=== PATIENT | female | born 1940 | race Hispanic/Latino ===

== ENCOUNTER 2017-09-05 10:33 | Inpatient (IN) | payer MEDICARE, BC ==
[2017-09-05 10:33] VITALS: BMI 31.1
[2017-09-05] MEDS ORDERED: Iohexol 240 (50 ml) PO ONE (11:03)
[2017-09-05] MEDS ORDERED: Sodium Chloride 0.9% 1,000 ML IV STA (11:03)
[2017-09-05] MEDS ORDERED: Albuterol-Ipratrop 3 mg / 0.5 (3 ml) UD IH STA (11:04)
--- NOTE | 2017-09-05 11:11 | ED PDOC ---
HPI: Abdomen Time Seen by Provider: 09/05/17 10:47 Chief Complaint (Nursing): Abdominal Pain Chief Complaint (Provider): Abd pain History Per: Patient History/Exam Limitations: no limitations Onset/Duration Of Symptoms: Days (Today morning) Outside of [place] travel?: No Additional Complaint(s): Pt. with abd pain diffuse. Started today morning. Pt. with nausea, vomit, nonbloody. No back pain, dyspnea, chest pain, fever, cough, leg pain, dysuria. Last bm yesterday. Past Medical History Reviewed: Nursing Documentation, Vital Signs Vital Signs: Last Vital Signs Temp 97.0 F L 09/05/17 10:47 Pulse 104 H 09/05/17 15:24 Resp 16 09/05/17 15:24 BP 124/71 09/05/17 15:24 Pulse Ox 96 09/05/17 15:24 - Medical History PMH: CHF, COPD, Emphysema, Fractures (Right ankle about 50 yrs. ago), HTN, Hypercholesterolemia (untreated), Hyperthyroidism, Hypothyroidism, Pneumonia Denies: HIV, Chronic Kidney Disease - Surgical History Surgical History: Endoscopy, Tonsillectomy - Family History Family History: States: Hypertension - Social History Current smoker - smoking cessation education provided: No Alcohol: None Drugs: Denies - Home Medications Home Medications: Ambulatory Orders Medication Instructions Recorded Albuterol Sulfate [Albuterol 3 ml IH TID 08/24/14 Sulfate 2.5mg/3 ml 0.083%] Albuterol Sulfate [Albuterol 1 puff IH QID PRN 08/24/14 Sulfate Hfa] Alendronate Sodium 35 mg PO SUN 08/24/14 Furosemide [Lasix] 40 mg PO PRN PRN 08/24/14 Levothyroxine Sodium 112 mcg PO ASDIR 08/24/14 Omeprazole 20 mg PO DAILY PRN 08/24/14 Potassium Chloride [K-Dur 20] 20 meq PO PRN PRN 08/24/14 Acetaminophen [Tylenol Extra 1,000 mg PO Q6H PRN 09/30/14 Strength] Alprazolam [Xanax] 0.25 mg PO DAILY PRN 09/30/14 Cholecalciferol [Vitamin D 1000 IU] 1,000 units PO DAILY 09/30/14 Levothyroxine Sodium 56 mcg PO SUN 09/30/14 Montelukast [Singulair] 10 mg PO DAILY #0 tab 10/06/14 Multimineral/Multivitamin 1 tab PO DAILY #0 tab 10/06/14 [Therapeutic-M Tab] amLODIPine [Norvasc] 10 mg PO HS #0 tab 10/06/14 - Allergies Allergies/Adverse Reactions: Allergies Allergy/AdvReac Type Severity Reaction Status Date / Time Penicillins Allergy Mild RASH Verified 09/05/17 10:47 Review of Systems ROS Statement: Except As Marked, All Systems Reviewed And Found Negative Gastrointestinal: Positive for: Nausea, Vomiting, Abdominal Pain Physical Exam - Reviewed Nursing Documentation Reviewed: Yes Vital Signs Reviewed: Yes - Physical Exam Appears: Positive for: Non-toxic, No Acute Distress Head Exam: Positive for: ATRAUMATIC, NORMAL INSPECTION, NORMOCEPHALIC Skin: Positive for: Normal Color, Warm, DRY Eye Exam: Positive for: EOMI, Normal appearance, PERRL ENT: Positive for: Normal ENT Inspection Neck: Positive for: Normal, Painless ROM Cardiovascular/Chest: Positive for: Tachycardia. Negative for: Edema Respiratory: Positive for: Wheezing (trace b/l) Gastrointestinal/Abdominal: Positive for: Soft, Tenderness (diffuse), Distended (mild) Back: Positive for: Normal Inspection. Negative for: L CVA Tenderness, R CVA Tenderness Extremity: Positive for: Normal ROM. Negative for: Tenderness, Pedal Edema Neurologic/Psych: Positive for: Alert, Oriented - Laboratory Results Result Diagrams: 09/05/17 12:20 09/05/17 12:20 Interpretation Of Abn Labs: no acute - ECG ECG Rhythm: Positive for: Sinus Tachycardia. Negative for: Normal QRS, Normal ST Segment O2 Sat by Pulse Oximetry: 95 Pulse Ox Interpretation: Normal - CT Scan/US ct Other Rad Studies (CT/US): Read By Radiologist Other Rad Interpretation: cholecystitis - Progress ED Course And Treament: 1618: Stable. AAOx3. Pain controlled. Spoke with Dr. Jurado. Will admit. Spoke with Dr. Hayward. Will consullt. Agrees with current management. Wants US. Spoke with GI. Will consult. Disposition - Clinical Impression Clinical Impression: Cholecystitis - Patient ED Disposition Is Patient to be Admitted: Yes Counseled Patient/Family Regarding: Studies Performed, Diagnosis - Disposition Disposition Time: 16:31 Condition: FAIR - Pt Status Changed To: Hospital Disposition Of: Inpatient - Admit Certification Admit to Inpatient:: After my assessment, the patient will require hospitalization for at least two midnights. This is because of the severity of symptoms shown, intensity of services needed, and/or the medical risk in this patient being treated as an outpatient. - POA Present On Arrival: None
[2017-09-05] MEDS ORDERED: Iohexol 240 (50 ml) ONE (11:39)
[2017-09-05] MEDS ORDERED: Albuterol-Ipratrop 3 mg / 0.5 (3 ml) UD ONE (11:40)
[2017-09-05 12:27] LABS: BASO # 0.1 K/uL (0.0-0.2); BASO % 0.6 % (0.0-2.0); EOS % 0.4 % (0.0-4.0); HEMATOCRIT 44.5 % (34.0-47.0); LYMPH # 0.8 K/uL (1.0-4.3); LYMPH % 7.5 % (20.0-40.0); MEAN CELL VOLUME 88.2 fl (81.0-99.0); MEAN CORPUSCULAR HEMOGLOBIN 29.9 pg (27.0-31.0); MEAN CORPUSCULAR HGB CONC 33.9 g/dL (33.0-37.0); MONO # 0.3 K/uL (0.0-0.8); MONO % 2.8 % (0.0-10.0); NEUT # 9.2 K/uL (1.8-7.0); NEUT % 88.7 % (50.0-75.0); PLATELET COUNT 242 K/uL (130-400); RED CELL DISTRIBUTION WIDTH 14.5 % (11.5-14.5); WHITE BLOOD COUNT 10.3 K/uL (4.8-10.8)
[2017-09-05 12:44] LABS: PARTIAL THROMBOPLASTIN TIME 27.9 Seconds (25.6-37.1)
[2017-09-05 12:48] LABS: ALB/GLOB RATIO 1.1 (1.0-2.1); ALKALINE PHOSPHATASE 164 U/L (38-126); ALT/SGPT 53 U/L (9-52); AST/SGOT 40 U/L (14-36); BILIRUBIN,TOTAL 0.6 mg/dl (0.2-1.3); BLOOD UREA NITROGEN 10 mg/dl (7-17); CALCIUM 8.8 mg/dL (8.4-10.2); CARBON DIOXIDE 23 mmol/L (22-30); CHLORIDE 106 mmol/L (98-107); GFR AFRICAN-AMERICAN > 60; GLUCOSE,RANDOM 151 mg/dL (65-105); LIPASE 35 U/L (23-300); POTASSIUM 3.6 MMOL/L (3.6-5.0); SODIUM 143 mmol/l (132-148); TOTAL PROTEIN 8.5 G/DL (6.3-8.2)
[2017-09-05 12:57] LABS: NEUTROPHIL 92 % (42-75); TOTAL CELLS COUNTED 100
[2017-09-05 14:20] LABS: RBC URINE 3 /hpf (0-3); URINE BACTERIA FEW (<OCC); URINE BILIRUBIN NEGATIVE (NEGATIVE); URINE BLOOD NEGATIVE (NEGATIVE); URINE COLOR YELLOW (YELLOW); URINE GLUCOSE (UA) NEG (Normal); URINE KETONE TRACE mg/dL (NEGATIVE); URINE LEUKOCYTE ESTERASE NEG Leu/uL (Negative); URINE PROTEIN NEGATIVE (NEGATIVE); URINE UROBILINOGEN 0.2-1.0 mg/dL (0.2-1.0); WBC URINE 4 /hpf (0-5)
[2017-09-05] MEDS ORDERED: Sodium Chloride 0.9% 50 ML IV ONE (14:56)
[2017-09-05] MEDS ORDERED: Iohexol 300 100 ML IJ ONE (14:56)
--- NOTE | 2017-09-05 16:11 | CT ---
PROCEDURE: CT Abdomen and Pelvis with contrast HISTORY: Abdominal pain COMPARISON: 10/31/2015 TECHNIQUE: CT scan of the abdomen and pelvis was performed after intravenous administration of contrast. Oral contrast was administered. Coronal and sagittal reformatted images were obtained. Contrast dose: 95 mL Omnipaque 300 Radiation dose: Total exam DLP = 1050.93 mGy-cm. This CT exam was performed using one or more of the following dose reduction techniques: Automated exposure control, adjustment of the mA and/or kV according to patient size, and/or use of iterative reconstruction technique. FINDINGS: LOWER THORAX: There is minimal bibasilar atelectasis. LIVER: There is mild hepatomegaly and there is diffuse fatty infiltration. No gross lesion or ductal dilatation. GALLBLADDER AND BILE DUCTS: The gallbladder is distended with mild wall edema and small gallstones. PANCREAS: The pancreas is normal in size. No gross lesion or ductal dilatation. SPLEEN: There is mild splenomegaly. No focal lesion. . ADRENALS: Both adrenal glands are normal in size without discrete nodule. KIDNEYS AND URETERS: Both kidneys are normal in size and there is homogeneous enhancement. No hydronephrosis. No solid mass. There is a 1.8 x 2.1 cm simple cyst in the lower pole of the left kidney. 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 BOWEL: The small bowel loops are normal in caliber. There is extensive left colonic diverticulosis without CT evidence for acute diverticulitis. No bowel dilatation or obstruction. APPENDIX: Normal appendix. PERITONEUM: No free fluid. No free air. LYMPH NODES: No enlarged lymph nodes. BLADDER: Unremarkable. REPRODUCTIVE: Unremarkable. BONES: No acute fracture. OTHER FINDINGS: There is a small sliding hiatal hernia. IMPRESSION: 1. Findings are concerning for acute calculus cholecystitis. Please correlate with right upper quadrant ultrasound and clinical symptoms. 2. Left colonic diverticulosis without CT evidence for acute diverticulitis. 3. Additional findings as described above.
--- NOTE | 2017-09-05 16:14 | RAD ---
PROCEDURE: Radiographs of the chest and abdomen (obstructive series) HISTORY: Abdominal pain COMPARISON: No prior. TECHNIQUE: AP radiograph of the chest, with upright and supine radiographs of the abdomen. FINDINGS: CHEST: Lungs: Clear. Cardiovascular: No radiographic findings to suggest acute or significant cardiovascular disease. Pleura: No pleural fluid. No pneumothorax. Other findings: None. ABDOMEN AND PELVIS: Bowel: Unremarkable bowel gas pattern. No evidence of mechanical obstruction. Free air: None. Bones: Severe degenerative changes right hip. Other findings: None. IMPRESSION: No acute findings related to/accounting for the clinical presentation. Additional benign and/or incidental findings described above.
[2017-09-05] MEDS ORDERED: metroNIDAZOLE 500mg/100ml NS 100 ML IV STA (16:19)
[2017-09-05] MEDS ORDERED: Ciprofloxacin 400mg/200ml D5W 400 MG/200 ML BAG IV STA (16:20)
[2017-09-05] MEDS ORDERED: cefTRIAXone (Rocephin) 1 gm Inj IV ONE (16:48)
[2017-09-05] MEDS ORDERED: cefTRIAXone IV 1 gm in Dextros 50 ML IVPB ONE ×2 (16:55→17:15)
--- NOTE | 2017-09-05 17:02 | CP.PCM.CON ---
<Neva Wolf - Last Filed: 09/05/17 17:25> History of Present Illness - History of Present Illness History of Present Illness: General Surgery consult note for Dr. Hayward Consulted for: Acute cholecystitis Patient is a 77F with 12 hours of abdominal pain. Patient states Right sided abdominal pain woke her up from sleep and was associated with nausea but denies vomiting. Pain is sharp, constant, and does not radiate. Patient denies any fevers, chills, back pain, or any other symptoms. PMH: HTN, COPD, HLD, CHF, hypothyroidism PSH: carpal tunnel release ALL: PCN Review of Systems - Review of Systems All systems: reviewed and no additional remarkable complaints except (as per HPI ) - Constitutional Constitutional: absent: Chills, Fever - Cardiovascular Cardiovascular: Dyspnea. absent: Chest Pain - Respiratory Respiratory: Cough, Dyspnea - Gastrointestinal Gastrointestinal: As Per HPI - Genitourinary Genitourinary: absent: Change in Urinary Stream, Dysuria, Hematuria - Musculoskeletal Musculoskeletal: absent: Back Pain - Neurological Neurological: absent: Numbness, Tingling Past Patient History - Past Medical History & Family History Past Medical History?: Yes - Past Social History Alcohol: None Drugs: Denies - CARDIAC Hx Congestive Heart Failure: Yes Hx Hypercholesterolemia: Yes (untreated) Hx Hypertension: Yes - PULMONARY Hx Chronic Obstructive Pulmonary Disease (COPD): Yes Hx Emphysema: Yes Hx Pneumonia: Yes - NEUROLOGICAL Hx Neurological Disorder: No - HEENT Hx HEENT Problems: No Other/Comment: Uses eyeglasses - RENAL Hx Chronic Kidney Disease: No - ENDOCRINE/METABOLIC Hx Hyperthyroidism: Yes Hx Hypothyroidism: Yes - HEMATOLOGICAL/ONCOLOGICAL Hx Human Immunodeficiency Virus (HIV): No - INTEGUMENTARY Hx Dermatological Problems: No - MUSCULOSKELETAL/RHEUMATOLOGICAL Hx Fractures: Yes (Right ankle about 50 yrs. ago) - GASTROINTESTINAL Hx Gastrointestinal Disorders: No - GENITOURINARY/GYNECOLOGICAL Hx Genitourinary Disorders: No - PSYCHIATRIC Hx Psychophysiologic Disorder: No Hx Substance Use: No - SURGICAL HISTORY Hx Tonsillectomy: Yes - ANESTHESIA Hx Anesthesia: Yes Hx Anesthesia Reactions: No Hx Malignant Hyperthermia: No Meds Allergies/Adverse Reactions: Allergies Allergy/AdvReac Type Severity Reaction Status Date / Time Penicillins Allergy Mild RASH Verified 09/05/17 10:47 - Medications Medications: Current Medications Ciprofloxacin (Cipro 400mg/200ml Dsw) 400 mg in 200 mls @ 200 mls/hr IV STAT STA PRN Reason: Protocol Stop: 09/05/17 17:19 Physical Exam - Constitutional Appears: Non-toxic, In Acute Distress - Head Exam Head Exam: ATRAUMATIC, NORMOCEPHALIC - Eye Exam Eye Exam: Normal appearance. absent: Conjunctival injection, Scleral icterus - ENT Exam ENT Exam: Mucous Membranes Dry, Normal Oropharynx - Respiratory Exam Respiratory Exam: NORMAL BREATHING PATTERN. absent: Accessory Muscle Use, Respiratory Distress - Cardiovascular Exam Cardiovascular Exam: Tachycardia, REGULAR RHYTHM - GI/Abdominal Exam GI & Abdominal Exam: Distended, Guarding (voluntary over the RUQ/RLQ), Soft, Tenderness (RUQ/RLQ) Additional comments: positive dunlap's sign, fullness in the RUQ - Extremities Exam Extremities exam: Positive for: pedal edema (trace pedal edema), pedal pulses present. Negative for: calf tenderness - Neurological Exam Neurological exam: Alert, Oriented x3 - Psychiatric Exam Psychiatric exam: Anxious, Normal Affect - Skin Skin Exam: Dry, Intact, Normal Color, Warm Results - Vital Signs Recent Vital Signs: Last Vital Signs Temp 97.0 F L 09/05/17 10:47 Pulse 104 H 09/05/17 16:49 Resp 16 09/05/17 16:49 BP 124/71 09/05/17 16:49 Pulse Ox 95 09/05/17 16:31 - Labs Result Diagrams: 09/05/17 12:20 09/05/17 12:20 Labs: Laboratory Results - last 24 hr 09/05/17 09/05/17 09/05/17 10:49 12:20 12:20 WBC 10.3 RBC 5.04 Hgb 15.1 Hct 44.5 MCV 88.2 D MCH 29.9 MCHC 33.9 RDW 14.5 Plt Count 242 MPV 8.0 Neut % (Auto) 88.7 H Lymph % (Auto) 7.5 L Motley % (Auto) 2.8 Eos % (Auto) 0.4 Baso % (Auto) 0.6 Neut # 9.2 H Lymph # 0.8 L Motley # 0.3 Eos # 0.0 Baso # 0.1 Neutrophils % (Manual) 92 H Lymphocytes % (Manual) 6 L Monocytes % (Manual) 2 Platelet Estimate Normal RBC Morphology Normal PT INR APTT Sodium 143 Potassium 3.6 Chloride 106 Carbon Dioxide 23 Anion Gap 18 BUN 10 Creatinine 0.7 Est GFR ( Amer) > 60 Est GFR (Non-Af Amer) > 60 POC Glucose (mg/dL) 140 H Random Glucose 151 H Lactic Acid Calcium 8.8 Total Bilirubin 0.6 AST 40 H ALT 53 H D Alkaline Phosphatase 164 H Total Protein 8.5 H Albumin 4.4 Globulin 4.1 H Albumin/Globulin Ratio 1.1 Lipase 35 Urine Color Urine Clarity Urine pH Ur Specific Maize Urine Protein Urine Glucose (UA) Urine Ketones Urine Blood Urine Nitrate Urine Bilirubin Urine Urobilinogen Ur Leukocyte Esterase Urine RBC (Auto) Urine Microscopic WBC Ur Squamous Epith Cells Urine Bacteria 09/05/17 09/05/17 09/05/17 12:20 12:20 13:52 WBC RBC Hgb Hct MCV MCH MCHC RDW Plt Count MPV Neut % (Auto) Lymph % (Auto) Motley % (Auto) Eos % (Auto) Baso % (Auto) Neut # Lymph # Motley # Eos # Baso # Neutrophils % (Manual) Lymphocytes % (Manual) Monocytes % (Manual) Platelet Estimate RBC Morphology PT 10.8 INR 1.0 APTT 27.9 Sodium Potassium Chloride Carbon Dioxide Anion Gap BUN Creatinine Est GFR ( Amer) Est GFR (Non-Af Amer) POC Glucose (mg/dL) Random Glucose Lactic Acid 2.1 Calcium Total Bilirubin AST ALT Alkaline Phosphatase Total Protein Albumin Globulin Albumin/Globulin Ratio Lipase Urine Color Yellow Urine Clarity Cloudy Urine pH 8.0 Ur Specific [place] 1.014 Urine Protein Negative Urine Glucose (UA) Neg Urine Ketones Trace Urine Blood Negative Urine Nitrate Negative Urine Bilirubin Negative Urine Urobilinogen 0.2-1.0 Ur Leukocyte Esterase Neg Urine RBC (Auto) 3 Urine Microscopic WBC 4 Ur Squamous Epith Cells 2 Urine Bacteria Few H - Imaging and Cardiology CT scan - abdomen Status: Image reviewed by me, Report reviewed by me Assessment & Plan - Assessment and Plan (Free Text) Assessment: 77F with right sided abdominal pain and nausea Plan: -Follow up abdominal ultrasound results -Trend CBC/CMP -Serial exams -IV antibiotics -IVF -PRN pain and nausea medication -NPO -Incentive spirometer, OOB -CT scan of the abdomen showed dilated gallbladder with gallstones and mild wall edema. Also showed infrarenal aortic aneurysm with mural thrombus. -We recommend vascular consult for abdominal aortic aneurysm -Further general surgery plans depending on results of ultrasound -Patient will need cardiac and medical clearance prior to any procedure -Will continue to follow Discussed with Dr. Mainor Wolf, PGY2 <Audi Hayward - Last Filed: 09/06/17 11:15> History of Present Illness - History of Present Illness History of Present Illness: Patient was seen and examined at the bedside. Agree with resident's note above. Meds - Medications Medications: Current Medications Albuterol/Ipratropium (Duoneb 3 Mg/0.5 Mg (3 Ml) Ud) 3 ml INH RQ6 RUBI Last Admin: 09/06/17 07:11 Dose: 3 ml Hydromorphone HCl (Dilaudid) 0.5 mg IVP Q4 PRN PRN Reason: Pain, severe (8-10) Stop: 09/07/17 17:42 Lactated Ringer's (Lactated Ringer's) 1,000 mls @ 75 mls/hr IV .[id number] RUBI Last Admin: 09/06/17 09:08 Dose: Not Given Piperacillin Sod/Tazobactam (Sod 3.375 gm/ Sodium Chloride) 100 mls @ 100 mls/ hr IVPB Q6 RUBI PRN Reason: Protocol Last Admin: 09/06/17 10:23 Dose: 100 mls/hr Potassium Chloride (Potassium Cl 10meq/50ml Sterile Water) 50 mls @ 50 mls/hr IVPB Q1 RUBI Stop: 09/06/17 12:59 Metoclopramide HCl (Reglan) 10 mg IVP Q6 PRN PRN Reason: Nausea/Vomiting Last Admin: 09/05/17 22:09 Dose: 10 mg Pantoprazole Sodium (Protonix Inj) 40 mg IVP DAILY RUBI Last Admin: 09/06/17 09:10 Dose: 40 mg Results - Vital Signs Recent Vital Signs: Last Vital Signs Temp 98.2 F 09/06/17 07:24 Pulse 89 09/06/17 07:24 Resp 20 09/06/17 07:24 BP 112/73 09/06/17 07:24 Pulse Ox 96 09/06/17 07:24 - Labs Result Diagrams: 09/06/17 05:35 09/06/17 05:35 Labs: Laboratory Results - last 24 hr 09/05/17 09/05/17 09/05/17 10:49 12:20 12:20 WBC 10.3 RBC 5.04 Hgb 15.1 Hct 44.5 MCV 88.2 D MCH 29.9 MCHC 33.9 RDW 14.5 Plt Count 242 MPV 8.0 Neut % (Auto) 88.7 H Lymph % (Auto) 7.5 L Motley % (Auto) 2.8 Eos % (Auto) 0.4 Baso % (Auto) 0.6 Neut # 9.2 H Lymph # 0.8 L Motley # 0.3 Eos # 0.0 Baso # 0.1 Neutrophils % (Manual) 92 H Lymphocytes % (Manual) 6 L Monocytes % (Manual) 2 Platelet Estimate Normal RBC Morphology Normal PT INR APTT Sodium 143 Potassium 3.6 Chloride 106 Carbon Dioxide 23 Anion Gap 18 BUN 10 Creatinine 0.7 Est GFR ( Amer) > 60 Est GFR (Non-Af Amer) > 60 POC Glucose (mg/dL) 140 H Random Glucose 151 H Lactic Acid Calcium 8.8 Total Bilirubin 0.6 AST 40 H ALT 53 H D Alkaline Phosphatase 164 H Total Protein 8.5 H Albumin 4.4 Globulin 4.1 H Albumin/Globulin Ratio 1.1 Lipase 35 Urine Color Urine Clarity Urine pH Ur Specific [place] Urine Protein Urine Glucose (UA) Urine Ketones Urine Blood Urine Nitrate Urine Bilirubin Urine Urobilinogen Ur Leukocyte Esterase Urine RBC (Auto) Urine Microscopic WBC Ur Squamous Epith Cells Urine Bacteria 09/05/17 09/05/17 09/05/17 12:20 12:20 13:52 WBC RBC Hgb Hct MCV MCH MCHC RDW Plt Count MPV Neut % (Auto) Lymph % (Auto) Motley % (Auto) Eos % (Auto) Baso % (Auto) Neut # Lymph # Motley # Eos # Baso # Neutrophils % (Manual) Lymphocytes % (Manual) Monocytes % (Manual) Platelet Estimate RBC Morphology PT 10.8 INR 1.0 APTT 27.9 Sodium Potassium Chloride Carbon Dioxide Anion Gap BUN Creatinine Est GFR ( Amer) Est GFR (Non-Af Amer) POC Glucose (mg/dL) Random Glucose Lactic Acid 2.1 Calcium Total Bilirubin AST ALT Alkaline Phosphatase Total Protein Albumin Globulin Albumin/Globulin Ratio Lipase Urine Color Yellow Urine Clarity Cloudy Urine pH 8.0 Ur Specific [place] 1.014 Urine Protein Negative Urine Glucose (UA) Neg Urine Ketones Trace Urine Blood Negative Urine Nitrate Negative Urine Bilirubin Negative Urine Urobilinogen 0.2-1.0 Ur Leukocyte Esterase Neg Urine RBC (Auto) 3 Urine Microscopic WBC 4 Ur Squamous Epith Cells 2 Urine Bacteria Few H 09/06/17 09/06/17 05:35 05:35 WBC 17.5 H D RBC 4.67 Hgb 13.7 Hct 41.4 MCV 88.5 MCH 29.4 MCHC 33.2 RDW 14.2 Plt Count 198 MPV 8.0 Neut % (Auto) 86.1 H Lymph % (Auto) 5.1 L Motley % (Auto) 8.6 Eos % (Auto) 0.0 Baso % (Auto) 0.2 Neut # 15.0 H Lymph # 0.9 L Motley # 1.5 H Eos # 0.0 Baso # 0.0 Neutrophils % (Manual) Lymphocytes % (Manual) Monocytes % (Manual) Platelet Estimate RBC Morphology PT INR APTT Sodium 138 Potassium 3.3 L Chloride 103 Carbon Dioxide 22 Anion Gap 16 BUN 10 Creatinine 0.8 Est GFR ( Amer) > 60 Est GFR (Non-Af Amer) > 60 POC Glucose (mg/dL) Random Glucose 121 H Lactic Acid Calcium 8.8 Total Bilirubin 1.2 AST 38 H ALT 46 Alkaline Phosphatase 128 H D Total Protein 7.4 Albumin 3.8 Globulin 3.5 Albumin/Globulin Ratio 1.1 Lipase Urine Color Urine Clarity Urine pH Ur Specific [place] Urine Protein Urine Glucose (UA) Urine Ketones Urine Blood Urine Nitrate Urine Bilirubin Urine Urobilinogen Ur Leukocyte Esterase Urine RBC (Auto) Urine Microscopic WBC Ur Squamous Epith Cells Urine Bacteria Assessment & Plan - Assessment and Plan (Free Text) Plan: - Keep NPO - IV fluids - pain control - Continue antibiotics - To OR for cholecystectomy
[2017-09-05] MEDS ORDERED: HYDROmorphone 0.5 mg/0.5 ml ISec IVP PRN ×2 (17:40→17:41)
--- NOTE | 2017-09-05 18:46 | US ---
HISTORY: gallstones and eval cholecystits COMPARISON: None. TECHNIQUE: Sonographic evaluation of the right upper quadrant of the abdomen. FINDINGS: LIVER: Measures 19.7 cm in length. There is diffuse increased echogenicity of the liver parenchyma. No mass. No intrahepatic bile duct dilatation. GALLBLADDER: The gallbladder is markedly distended with mild wall thickening. There are no gallstones or pericholecystic fluid. The sonographic Armijo sign is positive is as documented by the technologist. COMMON BILE DUCT: Measures 4.4 mm. No stones. No dilatation. PANCREAS: Unremarkable as visualized. No mass. No ductal dilatation. RIGHT KIDNEY: Measures 12.5 cm in length. Normal echogenicity. No calculus, mass, or hydronephrosis. AORTA: No aneurysmal dilatation. IVC: Unremarkable. OTHER FINDINGS: None . IMPRESSION: Distended gallbladder with mild wall thickening without sonographic evidence for pericholecystic fluid or gallstones. The sonographic Armijo's sign is positive as documented by the technologist. Findings are most compatible with cholecystitis. Clinical correlation and follow-up is advised.
--- NOTE | 2017-09-05 20:51 | CP.PCM.CON ---
History of Present Illness - History of Present Illness History of Present Illness: Surgery: Dr. Zheng Reason for consult: thrombus in AAA HPI: Patient is a 77 y/o female w/ multiple comorbidities who presents complaining of right sided abdominal pain x 1 day. Patient reports associated n/ v. Denies fever reports chills. Patient currently being evaluated for possible OR for gallbladder etiology. 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 PMH: HTN, COPD, HLD, CHF, hypothyroidism PSH: carpal tunnel release ALL: PCN Review of Systems - Review of Systems All systems: reviewed and no additional remarkable complaints except Review of Systems: unless stated in HPI Past Patient History - Past Medical History & Family History Past Medical History?: Yes - Past Social History Alcohol: None Drugs: Denies - CARDIAC Hx Congestive Heart Failure: Yes Hx Hypercholesterolemia: Yes (untreated) Hx Hypertension: Yes - PULMONARY Hx Chronic Obstructive Pulmonary Disease (COPD): Yes Hx Emphysema: Yes Hx Pneumonia: Yes - NEUROLOGICAL Hx Neurological Disorder: No - HEENT Hx HEENT Problems: No Other/Comment: Uses eyeglasses - RENAL Hx Chronic Kidney Disease: No - ENDOCRINE/METABOLIC Hx Hyperthyroidism: Yes Hx Hypothyroidism: Yes - HEMATOLOGICAL/ONCOLOGICAL Hx Human Immunodeficiency Virus (HIV): No - INTEGUMENTARY Hx Dermatological Problems: No - MUSCULOSKELETAL/RHEUMATOLOGICAL Hx Fractures: Yes (Right ankle about 50 yrs. ago) - GASTROINTESTINAL Hx Gastrointestinal Disorders: No - GENITOURINARY/GYNECOLOGICAL Hx Genitourinary Disorders: No - PSYCHIATRIC Hx Psychophysiologic Disorder: No Hx Substance Use: No - SURGICAL HISTORY Hx Tonsillectomy: Yes - ANESTHESIA Hx Anesthesia: Yes Hx Anesthesia Reactions: No Hx Malignant Hyperthermia: No Meds Allergies/Adverse Reactions: Allergies Allergy/AdvReac Type Severity Reaction Status Date / Time Penicillins Allergy Mild RASH Verified 09/05/17 10:47 - Medications Medications: Current Medications Albuterol/Ipratropium (Duoneb 3 Mg/0.5 Mg (3 Ml) Ud) 3 ml INH RQ6 RUBI Hydromorphone HCl (Dilaudid) 0.5 mg IVP Q4 PRN PRN Reason: Pain, severe (8-10) Stop: 09/07/17 17:42 Hydromorphone HCl (Dilaudid) 0.5 mg IVP Q3 PRN PRN Reason: Pain, moderate (4-7) Lactated Ringer's (Lactated Ringer's) 1,000 mls @ 75 mls/hr IV .[id number] RUBI Piperacillin Sod/Tazobactam (Sod 3.375 gm/ Sodium Chloride) 100 mls @ 100 mls/ hr IVPB Q6 RUBI PRN Reason: Protocol Metoclopramide HCl (Reglan) 10 mg IVP Q6 PRN PRN Reason: Nausea/Vomiting Pantoprazole Sodium (Protonix Inj) 40 mg IVP DAILY RUBI Physical Exam - Constitutional Appears: Non-toxic, No Acute Distress - Head Exam Head Exam: ATRAUMATIC, NORMOCEPHALIC - Eye Exam Eye Exam: EOMI - ENT Exam ENT Exam: Mucous Membranes Moist - Respiratory Exam Respiratory Exam: Clear to Auscultation Bilateral, NORMAL BREATHING PATTERN - Cardiovascular Exam Cardiovascular Exam: RRR, +S1, +S2 - GI/Abdominal Exam GI & Abdominal Exam: Hernia, Rebound, Soft, Tenderness (+ dunlap's ). absent: Distended, Firm, Guarding, Pulsatile Mass - Extremities Exam Extremities exam: Positive for: normal capillary refill. Negative for: calf tenderness - Neurological Exam Neurological exam: Alert, Oriented x3 - Psychiatric Exam Psychiatric exam: Normal Affect, Normal Mood - Skin Skin Exam: Normal Color, Warm Results - Vital Signs Recent Vital Signs: Last Vital Signs Temp 97.7 F 09/05/17 18:52 Pulse 105 H 09/05/17 18:52 Resp 20 09/05/17 18:52 BP 122/74 09/05/17 18:52 Pulse Ox 93 L 09/05/17 18:52 - Labs Result Diagrams: 09/05/17 12:20 09/05/17 12:20 Labs: Laboratory Results - last 24 hr 09/05/17 09/05/17 09/05/17 10:49 12:20 12:20 WBC 10.3 RBC 5.04 Hgb 15.1 Hct 44.5 MCV 88.2 D MCH 29.9 MCHC 33.9 RDW 14.5 Plt Count 242 MPV 8.0 Neut % (Auto) 88.7 H Lymph % (Auto) 7.5 L [place] % (Auto) 2.8 Eos % (Auto) 0.4 Baso % (Auto) 0.6 Neut # 9.2 H Lymph # 0.8 L [place] # 0.3 Eos # 0.0 Baso # 0.1 Neutrophils % (Manual) 92 H Lymphocytes % (Manual) 6 L Monocytes % (Manual) 2 Platelet Estimate Normal RBC Morphology Normal PT INR APTT Sodium 143 Potassium 3.6 Chloride 106 Carbon Dioxide 23 Anion Gap 18 BUN 10 Creatinine 0.7 Est GFR ( Amer) > 60 Est GFR (Non-Af Amer) > 60 POC Glucose (mg/dL) 140 H Random Glucose 151 H Lactic Acid Calcium 8.8 Total Bilirubin 0.6 AST 40 H ALT 53 H D Alkaline Phosphatase 164 H Total Protein 8.5 H Albumin 4.4 Globulin 4.1 H Albumin/Globulin Ratio 1.1 Lipase 35 Urine Color Urine Clarity Urine pH Ur Specific [place] Urine Protein Urine Glucose (UA) Urine Ketones Urine Blood Urine Nitrate Urine Bilirubin Urine Urobilinogen Ur Leukocyte Esterase Urine RBC (Auto) Urine Microscopic WBC Ur Squamous Epith Cells Urine Bacteria 09/05/17 09/05/17 09/05/17 12:20 12:20 13:52 WBC RBC Hgb Hct MCV MCH MCHC RDW Plt Count MPV Neut % (Auto) Lymph % (Auto) [place] % (Auto) Eos % (Auto) Baso % (Auto) Neut # Lymph # [place] # Eos # Baso # Neutrophils % (Manual) Lymphocytes % (Manual) Monocytes % (Manual) Platelet Estimate RBC Morphology PT 10.8 INR 1.0 APTT 27.9 Sodium Potassium Chloride Carbon Dioxide Anion Gap BUN Creatinine Est GFR ( Amer) Est GFR (Non-Af Amer) POC Glucose (mg/dL) Random Glucose Lactic Acid 2.1 Calcium Total Bilirubin AST ALT Alkaline Phosphatase Total Protein Albumin Globulin Albumin/Globulin Ratio Lipase Urine Color Yellow Urine Clarity Cloudy Urine pH 8.0 Ur Specific [place] 1.014 Urine Protein Negative Urine Glucose (UA) Neg Urine Ketones Trace Urine Blood Negative Urine Nitrate Negative Urine Bilirubin Negative Urine Urobilinogen 0.2-1.0 Ur Leukocyte Esterase Neg Urine RBC (Auto) 3 Urine Microscopic WBC 4 Ur Squamous Epith Cells 2 Urine Bacteria Few H Assessment & Plan - Assessment and Plan (Free Text) Assessment: 77 y/o female w/ 3.5 cm AAA w/ intramural thrombus Plan: -patient cleared for Laparoscopic surgery from vascular standpoint -non indication for vascular intervention for AAA or intramural thrombus at this time -patient should f/u as outpatient for AAA surveillance -discussed in length with Dr. Norm Silveira PGY3
[2017-09-05] MEDS: Albuterol-Ipratrop 3 mg / 0.5 (3 ml) UD INH SCH (21:05)
[2017-09-05] MEDS: Lactated Ringer's 1,000 ML IV SCH (21:56)
[2017-09-05] MEDS: Piperacillin/Tazobact 3.375 GM in Sodium Chloride 0.9% 100 ML IVPB SCH (21:59)
[2017-09-06] MEDS: Albuterol-Ipratrop 3 mg / 0.5 (3 ml) UD INH SCH ×4 (01:17→19:32)
[2017-09-06] MEDS: Piperacillin/Tazobact 3.375 GM in Sodium Chloride 0.9% 100 ML IVPB SCH ×4 (04:05→17:55)
[2017-09-06 06:31] LABS: BASO % 0.2 % (0.0-2.0); HEMATOCRIT 41.4 % (34.0-47.0); LYMPH # 0.9 K/uL (1.0-4.3); LYMPH % 5.1 % (20.0-40.0); MEAN CELL VOLUME 88.5 fl (81.0-99.0); MEAN CORPUSCULAR HEMOGLOBIN 29.4 pg (27.0-31.0); MEAN CORPUSCULAR HGB CONC 33.2 g/dL (33.0-37.0); MONO # 1.5 K/uL (0.0-0.8); MONO % 8.6 % (0.0-10.0); NEUT % 86.1 % (50.0-75.0); RED CELL DISTRIBUTION WIDTH 14.2 % (11.5-14.5); WHITE BLOOD COUNT 17.5 K/uL (4.8-10.8)
[2017-09-06 06:32] LABS: ALB/GLOB RATIO 1.1 (1.0-2.1); ALKALINE PHOSPHATASE 128 U/L (38-126); ALT/SGPT 46 U/L (9-52); AST/SGOT 38 U/L (14-36); BILIRUBIN,TOTAL 1.2 mg/dl (0.2-1.3); BLOOD UREA NITROGEN 10 mg/dl (7-17); CALCIUM 8.8 mg/dL (8.4-10.2); CARBON DIOXIDE 22 mmol/L (22-30); CHLORIDE 103 mmol/L (98-107); GFR AFRICAN-AMERICAN > 60; GLUCOSE,RANDOM 121 mg/dL (65-105); POTASSIUM 3.3 MMOL/L (3.6-5.0); SODIUM 138 mmol/l (132-148); TOTAL PROTEIN 7.4 G/DL (6.3-8.2)
--- NOTE | 2017-09-06 07:37 | CARD ---
APPROVED REPORT EKG Measurement Heart [id number] <Conclusion> Sinus tachycardia Otherwise normal ECG
--- NOTE | 2017-09-06 08:37 | CP.PCM.HP ---
History of Present Illness - History of Present Illness History of Present Illness: 77 YR OLD FEMALE WITH ABDOMINAL PAINS,NAUSEA AND VOMITING X 1 DAY SCAN OF ABDOMEN REMARKABLE FOR AAA AND GALLBLADDER DISEASE Present on Admission - Present on Admission Any Indicators Present on Admission: No History of DVT/PE: No History of Uncontrolled Diabetes: No Urinary Catheter: No Decubitus Ulcer Present: No History Surgical Site Infection Following: None Past Patient History - Past Medical History & Family History Past Medical History?: Yes - Past Social History Smoking Status: Former Smoker - CARDIAC Hx Cardiac Disorders: Yes Hx Congestive Heart Failure: Yes Hx Hypercholesterolemia: Yes (untreated) Hx Hypertension: Yes - PULMONARY Hx Respiratory Disorders: Yes Hx Chronic Obstructive Pulmonary Disease (COPD): Yes Hx Emphysema: Yes Hx Pneumonia: Yes - NEUROLOGICAL Hx Neurological Disorder: No - HEENT Hx HEENT Problems: Yes Other/Comment: Uses eyeglasses - RENAL Hx Chronic Kidney Disease: No - ENDOCRINE/METABOLIC Hx Endocrine Disorders: Yes Hx Hypothyroidism: Yes - HEMATOLOGICAL/ONCOLOGICAL Hx Blood Disorders: No Hx AIDS: No Hx Hepatitis C: No Hx Human Immunodeficiency Virus (HIV): No - INTEGUMENTARY Hx Dermatological Problems: No - MUSCULOSKELETAL/RHEUMATOLOGICAL Hx Musculoskeletal Disorders: Yes Hx Falls: No Hx Fractures: Yes (R ankle fx) - GASTROINTESTINAL Hx Gastrointestinal Disorders: No - GENITOURINARY/GYNECOLOGICAL Hx Genitourinary Disorders: No - PSYCHIATRIC Hx Psychophysiologic Disorder: Yes Hx Anxiety: Yes (denies taking xanax home med) Hx Substance Use: No - SURGICAL HISTORY Hx Surgeries: Yes Hx Musculoskeletal Surgery: Yes (R ankle surgery) Hx Tonsillectomy: Yes - ANESTHESIA Hx Anesthesia: Yes Hx Anesthesia Reactions: No Hx Malignant Hyperthermia: No Meds Allergies/Adverse Reactions: Allergies Allergy/AdvReac Type Severity Reaction Status Date / Time Penicillins Allergy Mild RASH Verified 09/05/17 10:47 Physical Exam - Constitutional Appears: In Acute Distress - Head Exam Head Exam: ATRAUMATIC, NORMAL INSPECTION, NORMOCEPHALIC - Eye Exam Eye Exam: EOMI, Normal appearance, PERRL Pupil Exam: NORMAL ACCOMODATION, PERRL - ENT Exam ENT Exam: Mucous Membranes Moist, Normal Exam - Neck Exam Neck exam: Positive for: Normal Inspection - Respiratory Exam Respiratory Exam: Clear to Auscultation Bilateral, Rales, NORMAL BREATHING PATTERN - Cardiovascular Exam Cardiovascular Exam: REGULAR RHYTHM - GI/Abdominal Exam GI & Abdominal Exam: Normal Bowel Sounds, Soft, Tenderness Additional comments: RUQ TENDERNESS - Rectal Exam Rectal Exam: NORMAL INSPECTION - Extremities Exam Extremities exam: Positive for: normal inspection - Back Exam Back exam: NORMAL INSPECTION - Neurological Exam Neurological exam: Alert, CN II-XII Intact, Normal Gait, Oriented x3, Reflexes Normal - Psychiatric Exam Psychiatric exam: Normal Affect, Normal Mood - Skin Skin Exam: Dry, Intact, Normal Color, Warm Results - Vital Signs Recent Vital Signs: Last Vital Signs Temp 98.2 F 09/06/17 07:24 Pulse 89 09/06/17 07:24 Resp 20 09/06/17 07:24 BP 112/73 09/06/17 07:24 Pulse Ox 96 09/06/17 07:24 - Labs Result Diagrams: 09/06/17 05:35 09/06/17 05:35 Labs: Laboratory Results - last 24 hr 09/05/17 09/05/17 09/05/17 10:49 12:20 12:20 WBC 10.3 RBC 5.04 Hgb 15.1 Hct 44.5 MCV 88.2 D MCH 29.9 MCHC 33.9 RDW 14.5 Plt Count 242 MPV 8.0 Neut % (Auto) 88.7 H Lymph % (Auto) 7.5 L [place] % (Auto) 2.8 Eos % (Auto) 0.4 Baso % (Auto) 0.6 Neut # 9.2 H Lymph # 0.8 L [place] # 0.3 Eos # 0.0 Baso # 0.1 Neutrophils % (Manual) 92 H Lymphocytes % (Manual) 6 L Monocytes % (Manual) 2 Platelet Estimate Normal RBC Morphology Normal PT INR APTT Sodium 143 Potassium 3.6 Chloride 106 Carbon Dioxide 23 Anion Gap 18 BUN 10 Creatinine 0.7 Est GFR ( Amer) > 60 Est GFR (Non-Af Amer) > 60 POC Glucose (mg/dL) 140 H Random Glucose 151 H Lactic Acid Calcium 8.8 Total Bilirubin 0.6 AST 40 H ALT 53 H D Alkaline Phosphatase 164 H Total Protein 8.5 H Albumin 4.4 Globulin 4.1 H Albumin/Globulin Ratio 1.1 Lipase 35 Urine Color Urine Clarity Urine pH Ur Specific [place] Urine Protein Urine Glucose (UA) Urine Ketones Urine Blood Urine Nitrate Urine Bilirubin Urine Urobilinogen Ur Leukocyte Esterase Urine RBC (Auto) Urine Microscopic WBC Ur Squamous Epith Cells Urine Bacteria 09/05/17 09/05/17 09/05/17 12:20 12:20 13:52 WBC RBC Hgb Hct MCV MCH MCHC RDW Plt Count MPV Neut % (Auto) Lymph % (Auto) [place] % (Auto) Eos % (Auto) Baso % (Auto) Neut # Lymph # [place] # Eos # Baso # Neutrophils % (Manual) Lymphocytes % (Manual) Monocytes % (Manual) Platelet Estimate RBC Morphology PT 10.8 INR 1.0 APTT 27.9 Sodium Potassium Chloride Carbon Dioxide Anion Gap BUN Creatinine Est GFR ( Amer) Est GFR (Non-Af Amer) POC Glucose (mg/dL) Random Glucose Lactic Acid 2.1 Calcium Total Bilirubin AST ALT Alkaline Phosphatase Total Protein Albumin Globulin Albumin/Globulin Ratio Lipase Urine Color Yellow Urine Clarity Cloudy Urine pH 8.0 Ur Specific [place] 1.014 Urine Protein Negative Urine Glucose (UA) Neg Urine Ketones Trace Urine Blood Negative Urine Nitrate Negative Urine Bilirubin Negative Urine Urobilinogen 0.2-1.0 Ur Leukocyte Esterase Neg Urine RBC (Auto) 3 Urine Microscopic WBC 4 Ur Squamous Epith Cells 2 Urine Bacteria Few H 09/06/17 09/06/17 05:35 05:35 WBC 17.5 H D RBC 4.67 Hgb 13.7 Hct 41.4 MCV 88.5 MCH 29.4 MCHC 33.2 RDW 14.2 Plt Count 198 MPV 8.0 Neut % (Auto) 86.1 H Lymph % (Auto) 5.1 L [place] % (Auto) 8.6 Eos % (Auto) 0.0 Baso % (Auto) 0.2 Neut # 15.0 H Lymph # 0.9 L [place] # 1.5 H Eos # 0.0 Baso # 0.0 Neutrophils % (Manual) Lymphocytes % (Manual) Monocytes % (Manual) Platelet Estimate RBC Morphology PT INR APTT Sodium 138 Potassium 3.3 L Chloride 103 Carbon Dioxide 22 Anion Gap 16 BUN 10 Creatinine 0.8 Est GFR ( Amer) > 60 Est GFR (Non-Af Amer) > 60 POC Glucose (mg/dL) Random Glucose 121 H Lactic Acid Calcium 8.8 Total Bilirubin 1.2 AST 38 H ALT 46 Alkaline Phosphatase 128 H D Total Protein 7.4 Albumin 3.8 Globulin 3.5 Albumin/Globulin Ratio 1.1 Lipase Urine Color Urine Clarity Urine pH Ur Specific [place] Urine Protein Urine Glucose (UA) Urine Ketones Urine Blood Urine Nitrate Urine Bilirubin Urine Urobilinogen Ur Leukocyte Esterase Urine RBC (Auto) Urine Microscopic WBC Ur Squamous Epith Cells Urine Bacteria Assessment & Plan - Assessment and Plan (Free Text) Assessment: ACUTE CHOLECYSTITIS ABDOMINAL AORTIC ANEURYSM HTN HX OF CHF--DIASTOLIC DYSFUNCTION--STABLE SINUS TACHYCARDIA DUE TO CHOLECYSTITIS HX OF THYROID DZ COPD Plan: CLEARED FOR CHOLECYSTECTOMY BY VASCULAR SURGERY AWAIT CARDIAC CLEARANCE MEDICALLY CLEARED FOR SURGERY ONCE CLEARED BY CARDIOLOGY
[2017-09-06] MEDS: Lactated Ringer's 1,000 ML IV SCH ×3 (09:08→20:25)
--- NOTE | 2017-09-06 10:29 | CP.PCM.CON ---
History of Present Illness - History of Present Illness History of Present Illness: THE PATIENT IS A 77 YEAR OLD FEMALE WHO WAS ADMITTED WITH RUQ ABDOMINAL PAIN AND WAS FOUND TO HAVE ACUTE CHOLECYSTITIS AND CARDIOLOGY WAS ASKED TO CLEAR BEFORE SURGERY. SHE ALSO HAS A HISTORY OF HYPERTENSION, HYPERLIPIDEMIA, COPD AND HYPOTHYROIDISM. SHE DOES NOT HAVE A HISTORY OF CAD OR CHEST PAIN. Past Patient History - Past Medical History & Family History Past Medical History?: Yes - Past Social History Smoking Status: Former Smoker - CARDIAC Hx Cardiac Disorders: Yes Hx Congestive Heart Failure: Yes Hx Hypercholesterolemia: Yes (untreated) Hx Hypertension: Yes - PULMONARY Hx Respiratory Disorders: Yes Hx Chronic Obstructive Pulmonary Disease (COPD): Yes Hx Emphysema: Yes Hx Pneumonia: Yes - NEUROLOGICAL Hx Neurological Disorder: No - HEENT Hx HEENT Problems: Yes Other/Comment: Uses eyeglasses - RENAL Hx Chronic Kidney Disease: No - ENDOCRINE/METABOLIC Hx Endocrine Disorders: Yes Hx Hypothyroidism: Yes - HEMATOLOGICAL/ONCOLOGICAL Hx Blood Disorders: No Hx AIDS: No Hx Hepatitis C: No Hx Human Immunodeficiency Virus (HIV): No - INTEGUMENTARY Hx Dermatological Problems: No - MUSCULOSKELETAL/RHEUMATOLOGICAL Hx Musculoskeletal Disorders: Yes Hx Falls: No Hx Fractures: Yes (R ankle fx) - GASTROINTESTINAL Hx Gastrointestinal Disorders: No - GENITOURINARY/GYNECOLOGICAL Hx Genitourinary Disorders: No - PSYCHIATRIC Hx Psychophysiologic Disorder: Yes Hx Anxiety: Yes (denies taking xanax home med) Hx Substance Use: No - SURGICAL HISTORY Hx Surgeries: Yes Hx Musculoskeletal Surgery: Yes (R ankle surgery) Hx Tonsillectomy: Yes - ANESTHESIA Hx Anesthesia: Yes Hx Anesthesia Reactions: No Hx Malignant Hyperthermia: No Meds Allergies/Adverse Reactions: Allergies Allergy/AdvReac Type Severity Reaction Status Date / Time Penicillins Allergy Mild RASH Verified 09/05/17 10:47 - Medications Medications: Current Medications Albuterol/Ipratropium (Duoneb 3 Mg/0.5 Mg (3 Ml) Ud) 3 ml INH RQ6 RUBI Last Admin: 09/06/17 07:11 Dose: 3 ml Hydromorphone HCl (Dilaudid) 0.5 mg IVP Q4 PRN PRN Reason: Pain, severe (8-10) Stop: 09/07/17 17:42 Hydromorphone HCl (Dilaudid) 0.5 mg IVP Q3 PRN PRN Reason: Pain, moderate (4-7) Last Admin: 09/05/17 22:09 Dose: 0.5 mg Lactated Ringer's (Lactated Ringer's) 1,000 mls @ 75 mls/hr IV .[id number] RUBI Last Admin: 09/06/17 09:08 Dose: Not Given Piperacillin Sod/Tazobactam (Sod 3.375 gm/ Sodium Chloride) 100 mls @ 100 mls/ hr IVPB Q6 RUBI PRN Reason: Protocol Last Admin: 09/06/17 10:23 Dose: 100 mls/hr Potassium Chloride (Potassium Cl 10meq/50ml Sterile Water) 50 mls @ 50 mls/hr IVPB Q1 RUBI Stop: 09/06/17 12:59 Metoclopramide HCl (Reglan) 10 mg IVP Q6 PRN PRN Reason: Nausea/Vomiting Last Admin: 09/05/17 22:09 Dose: 10 mg Pantoprazole Sodium (Protonix Inj) 40 mg IVP DAILY [facility] Last Admin: 09/06/17 09:10 Dose: 40 mg Physical Exam - Respiratory Exam Respiratory Exam: Clear to Auscultation Bilateral - Cardiovascular Exam Cardiovascular Exam: REGULAR RHYTHM, +S1, +S2 - GI/Abdominal Exam GI & Abdominal Exam: Hypoactive Bowel Sounds, Tenderness Additional comments: RUQ PAIN - Extremities Exam Extremities exam: Positive for: normal inspection - Additional Findings Additional findings: EKG ST, R [address] WITH ACUTE CHOLECYSTITIS AND 3.5 ABDOMINAL AORTA ANEURYSM AT 3.5 CMS SEEN BY VASCULAR AND CLEAR FOR SURGERY ECHOCARDIOGRAM 2013 WITH NORMAL LV SYSTOLIC CONTRACTION Results - Vital Signs Recent Vital Signs: Last Vital Signs Temp 98.2 F 09/06/17 07:24 Pulse 89 09/06/17 07:24 Resp 20 09/06/17 07:24 BP 112/73 09/06/17 07:24 Pulse Ox 96 09/06/17 07:24 - Labs Result Diagrams: 09/06/17 05:35 09/06/17 05:35 Labs: Laboratory Results - last 24 hr 09/05/17 09/05/17 09/05/17 10:49 12:20 12:20 WBC 10.3 RBC 5.04 Hgb 15.1 Hct 44.5 MCV 88.2 D MCH 29.9 MCHC 33.9 RDW 14.5 Plt Count 242 MPV 8.0 Neut % (Auto) 88.7 H Lymph % (Auto) 7.5 L [place] % (Auto) 2.8 Eos % (Auto) 0.4 Baso % (Auto) 0.6 Neut # 9.2 H Lymph # 0.8 L [place] # 0.3 Eos # 0.0 Baso # 0.1 Neutrophils % (Manual) 92 H Lymphocytes % (Manual) 6 L Monocytes % (Manual) 2 Platelet Estimate Normal RBC Morphology Normal PT INR APTT Sodium 143 Potassium 3.6 Chloride 106 Carbon Dioxide 23 Anion Gap 18 BUN 10 Creatinine 0.7 Est GFR ( Amer) > 60 Est GFR (Non-Af Amer) > 60 POC Glucose (mg/dL) 140 H Random Glucose 151 H Lactic Acid Calcium 8.8 Total Bilirubin 0.6 AST 40 H ALT 53 H D Alkaline Phosphatase 164 H Total Protein 8.5 H Albumin 4.4 Globulin 4.1 H Albumin/Globulin Ratio 1.1 Lipase 35 Urine Color Urine Clarity Urine pH Ur Specific [place] Urine Protein Urine Glucose (UA) Urine Ketones Urine Blood Urine Nitrate Urine Bilirubin Urine Urobilinogen Ur Leukocyte Esterase Urine RBC (Auto) Urine Microscopic WBC Ur Squamous Epith Cells Urine Bacteria 09/05/17 09/05/17 09/05/17 12:20 12:20 13:52 WBC RBC Hgb Hct MCV MCH MCHC RDW Plt Count MPV Neut % (Auto) Lymph % (Auto) [place] % (Auto) Eos % (Auto) Baso % (Auto) Neut # Lymph # [place] # Eos # Baso # Neutrophils % (Manual) Lymphocytes % (Manual) Monocytes % (Manual) Platelet Estimate RBC Morphology PT 10.8 INR 1.0 APTT 27.9 Sodium Potassium Chloride Carbon Dioxide Anion Gap BUN Creatinine Est GFR ( Amer) Est GFR (Non-Af Amer) POC Glucose (mg/dL) Random Glucose Lactic Acid 2.1 Calcium Total Bilirubin AST ALT Alkaline Phosphatase Total Protein Albumin Globulin Albumin/Globulin Ratio Lipase Urine Color Yellow Urine Clarity Cloudy Urine pH 8.0 Ur Specific [place] 1.014 Urine Protein Negative Urine Glucose (UA) Neg Urine Ketones Trace Urine Blood Negative Urine Nitrate Negative Urine Bilirubin Negative Urine Urobilinogen 0.2-1.0 Ur Leukocyte Esterase Neg Urine RBC (Auto) 3 Urine Microscopic WBC 4 Ur Squamous Epith Cells 2 Urine Bacteria Few H 09/06/17 09/06/17 05:35 05:35 WBC 17.5 H D RBC 4.67 Hgb 13.7 Hct 41.4 MCV 88.5 MCH 29.4 MCHC 33.2 RDW 14.2 Plt Count 198 MPV 8.0 Neut % (Auto) 86.1 H Lymph % (Auto) 5.1 L [place] % (Auto) 8.6 Eos % (Auto) 0.0 Baso % (Auto) 0.2 Neut # 15.0 H Lymph # 0.9 L [place] # 1.5 H Eos # 0.0 Baso # 0.0 Neutrophils % (Manual) Lymphocytes % (Manual) Monocytes % (Manual) Platelet Estimate RBC Morphology PT INR APTT Sodium 138 Potassium 3.3 L Ch[place] 103 Carbon Dioxide 22 Anion Gap 16 BUN 10 Creatinine 0.8 Est GFR ( Amer) > 60 Est GFR (Non-Af Amer) > 60 POC Glucose (mg/dL) Random Glucose 121 H Lactic Acid Calcium 8.8 Total Bilirubin 1.2 AST 38 H ALT 46 Alkaline Phosphatase 128 H D Total Protein 7.4 Albumin 3.8 Globulin 3.5 Albumin/Globulin Ratio 1.1 Lipase Urine Color Urine Clarity Urine pH Ur Specific [place] Urine Protein Urine Glucose (UA) Urine Ketones Urine Blood Urine Nitrate Urine Bilirubin Urine Urobilinogen Ur Leukocyte Esterase Urine RBC (Auto) Urine Microscopic WBC Ur Squamous Epith Cells Urine Bacteria Assessment & Plan - Assessment and Plan (Free Text) Assessment: ACUTE CHOLEYSTITIS HYPERTENSION HYPERLIPIDEMIA COPD HYPOTHYROIDISM 3.5 CM ABDOMINAL AORTIC ANEURYSM Plan: THE PATIENT IS CLEARED FOR A CHOLEYSTECTOMY FROM THE CARDIAC VIEWPOINT
--- NOTE | 2017-09-06 11:16 | PQF GENQUE ---
Dr. Jurado, Further clarification of HIistory of CHF Diastolic Dysfunction-Stable; i.e. hx. of CHF not a chronic condition or Chronic CHF? OR: Other explanation of clinical finding Cardiology consult draft ACUTE CHOLECYSTITIS ; ASKED TO CLEAR BEFORE SURGERY; Hx.:HTN HYPERLIPIDEMIA, COPD AND HYPOTHYROIDISM. SHE DOES NOT HAVE A Hx. OF CAD OR CHEST PAIN Hx. CHF: Yes Assessment: Acute Cholecystitis, HTN, Hyperlipedemia, COPD, Hypothyroidism, 3.5 CM AAA This form is a permanent part of the medical record Clarification of your documentation is requested to better reflect the severity of illness and intensity of treatment of your patient. Indicators present [] Specify: [] [] Specify: [] [] Specify: [] [] Specify: [] Location in the medical record that reflects the above clinical findings: [] Treatment Provided: [] PHYSICIAN'S RESPONSE Based on your medical judgment of the clinical indicators outlined above please clarify the following: [] Practitioner response [] If unable to determine, please check the box, sign and date. Present On Admission (POA) Indicator: [] Present at the time of admission [] Not present at the time of admission [] Clinically Undetermined In responding to this query, please exercise your independent professional judgment. The fact that a question is asked does not imply that any particular answer is desired or expected. Thank you for your clarification on this documentation. If you have any questions please call. * Thank you, Aranza Kaur RN ext. #[phone]: Chely Garrett RN MTDD
[2017-09-06] MEDS: Potassium CL 10 MEQ/50 ML 50 ML IVPB SCH ×3 (11:17→15:00)
[2017-09-06] MEDS ORDERED: Bupivacaine 0.5% Inj(30mL) ONE (11:28)
--- NOTE | 2017-09-06 11:32 | PQF GENQUE ---
Dr. Jurado, Please specify type of COPD:i.e. Exacerbation of COPD >Stable Other COPD (please specify) Clinically unable to determine Unknown ER MD; Respiratory: Positive for: Wheezing (trace b/l) Albuterol IH stat trmt. in the ER->q 6 hrs. H and P: Respiratory Exam: Clear to Auscultation Bilateral, Rales, NORMAL BREATHING PATTERN Current dx. includes: COPD Respirations: 20->16->16->18-.20 This form is a permanent part of the medical record Clarification of your documentation is requested to better reflect the severity of illness and intensity of treatment of your patient. Indicators present [] Specify: [] [] Specify: [] [] Specify: [] [] Specify: [] Location in the medical record that reflects the above clinical findings: [] Treatment Provided: [] PHYSICIAN'S RESPONSE Based on your medical judgment of the clinical indicators outlined above please clarify the following: [] Practitioner response [] If unable to determine, please check the box, sign and date. Present On Admission (POA) Indicator: [] Present at the time of admission [] Not present at the time of admission [] Clinically Undetermined In responding to this query, please exercise your independent professional judgment. The fact that a question is asked does not imply that any particular answer is desired or expected. Thank you for your clarification on this documentation. If you have any questions please call. * Thank you, Aranza Kaur RN ext. #[phone]: Chely Garrett RN [email or web address]
[2017-09-06] MEDS ORDERED: Lactated Ringer's 1,000 ML IV ONE ×5 (12:10→12:30)
[2017-09-06] MEDS ORDERED: Succinylcholine 200 mg/10 ml Inj IV ONE (12:15)
[2017-09-06] MEDS ORDERED: Rocuronium 10 mg/ml (5 ml) ONE (12:15)
[2017-09-06] MEDS ORDERED: Midazolam 2 MG/2 ML VIAL ONE (12:15)
[2017-09-06] MEDS ORDERED: ePHEDrine 50 mg/ml Inj ONE (12:15)
[2017-09-06] MEDS ORDERED: Propofol 10 mg/ml Inj (20 ML) ONE (12:15)
[2017-09-06] MEDS ORDERED: Phenylephrine 10 mg/ml Inj ONE (12:15)
--- NOTE | 2017-09-06 13:12 | CON ---
DATE: 09/06/2017 REFERRING PHYSICIAN: Dr. Jurado. REASON FOR CONSULTATION: Abdominal pain. HISTORY OF PRESENT ILLNESS: This is a pleasant 77-year-old female with a history of CHF, hypercholesterolemia, hypertension, COPD, who comes in with abdominal pain and discomfort for the past 1 day. Never had the same before. Had no fevers or chills. Some nausea. No vomiting. Currently, still having pain, but improved. Lying in bed comfortably, in no apparent distress. PAST MEDICAL HISTORY: As above. PAST SURGICAL HISTORY: As above. MEDICATIONS: Reviewed. REVIEW OF SYSTEMS: All other systems have been reviewed and negative apart from the HPI. PHYSICAL EXAMINATION GENERAL: This is a pleasant, elderly-appearing female, lying in the bed comfortably, in no apparent distress. VITAL SIGNS: Reviewed in the hospital, grossly unremarkable. HEENT: Head is normocephalic and atraumatic. Eyes: Pupils are equal, round and reactive to light bilaterally. No conjunctival pallor or icterus. NECK: Supple. Normal range of motion. No lymphadenopathy appreciated. HEART: S1 and S2. Regular rate and rhythm. No murmurs appreciated. LUNGS: Coarse breath sounds bilaterally. ABDOMEN: Soft and nontender. Some discomfort in the right upper quadrant. No rebound. No guarding. EXTREMITIES: Pulses present bilaterally. SKIN: Warm, dry, and intact. NEUROLOGIC: A and O x3. LABORATORY DATA: Labs are reviewed. CBC 17.5, hemoglobin 13.7. LFTs: AST 38, ALT 46, alk phos 128. Bilirubin is normal. Abdominal ultrasound shows diffuse gallbladder wall thickening without evidence of gallstones, likely cholecystitis. ASSESSMENT AND PLAN: This is a 77-year-old female with abdominal pain and discomfort. There is cholecystitis. Antibiotics for now, n.p.o., pain control. Surgery consult appreciated. Thank you for the consult. Jose L Pleitez MD/ PhD cc: Conner Jurado MD.
[2017-09-06] MEDS ORDERED: Bupivacaine 0.5% 50 ML IJ ONE ×2 (13:26)
[2017-09-06] MEDS ORDERED: Neostigmine Methylsulfate 2 MG/2 ML ML IV ONE (13:39)
[2017-09-06] MEDS ORDERED: Esmolol 100 mg/10ml Inj IV ONE (13:49)
--- NOTE | 2017-09-06 14:11 | PCM.SURG1 ---
Surgeon's Initial Post Op Note - Surgeon's Notes Surgeon: Dr. Hayward Enterer: Dr. Ovalle PGY3, Dr. Uriarte PGY2 Type of Anesthesia: General Endo, Local Pre-Operative Diagnosis: acute cholecystitis Operative Findings: gangrenous gallbladder Post-Operative Diagnosis: acute gangrenous cholecystitis Operation Performed: laparoscopic cholecystectomy Specimen/Specimens Removed: gallbladder Estimated Blood Loss: EBL {In ML}: 75 Blood Products Given: N/A Drains Used: No Drains Post-Op Condition: Good Date of Surgery/Procedure: 09/06/17 Time of Surgery/Procedure: 14:11
[2017-09-06] MEDS ORDERED: levoFLOXacin 750 mg in D5W 150 ML BAG IVPB SCH (17:30)
[2017-09-06] MEDS ORDERED: metroNIDAZOLE 500mg/100ml NS 1,000 MG in Premixed IV 1 EA IVPB SCH (17:30)
[2017-09-06] MEDS ORDERED: levoFLOXacin 750 mg in D5W 750 MG/150 ML BAG IVPB SCH (18:30)
--- NOTE | 2017-09-06 20:21 | OP ---
PROCEDURE DATE: PREOPERATIVE DIAGNOSIS: Acute cholecystitis. POSTOPERATIVE DIAGNOSIS: Gangrenous acute cholecystitis. PROCEDURE: Laparoscopic cholecystectomy. SURGEON: Audi Hayward MD STAGE ELECTRICIAN HELPER: Yamile. SECOND PROTECTIVE SIGNAL REPAIRER: Chapito. TYPE OF ANESTHESIA: General with endotracheal intubation. IV FLUIDS: Crystalloids. ESTIMATED BLOOD LOSS: 25 mL. INTRAOPERATIVE FINDINGS: Gangrenous cholecystitis. SPECIMEN: Gallbladder. BRIEF HISTORY: Mrs. Steve is a very pleasant 77-year-old female who came to the hospital complaining of right upper quadrant abdominal, and upon further investigation it was found to have acute cholecystitis. All the risks and benefits of the procedure were explained to the patient and with the patient having a full understanding of all the risks and benefits involved, informed consent was obtained and patient was taken to the operating room for above-stated procedure. DESCRIPTION OF PROCEDURE: Patient was brought into the operating room and placed supine on the operating table. Bilateral Flowtron boots were applied to the patient's lower extremities. After successful induction of the anesthesia and successful endotracheal intubation by the anesthesia team, patient's abdomen was prepped with ChloraPrep stick and draped in the standard surgical fashion. Prior to the beginning of our procedure, a time-out was called in the room and everyone in the room were in agreement. Using Veress needle, patient's abdomen was entered at the umbilicus and pneumoperitoneum was achieved with good opening pressures. Once this was accomplished, using 11-blade scalpel knife approximately 1 mm incision was made in the umbilicus in a longitudinal fashion and subsequent to that, an 11 mm trocar was introduced into the patient's abdomen. At that point in time, a 5 mm 0-degree scope was introduced into the patient's abdomen and abdomen was inspected. We immediately were able to visualize the gallbladder that appeared to be necrotic. Then, attention was turned to the subxiphoid area. Using an 11 blade scalpel knife, 5 mm incision was made in a transverse fashion in the subxiphoid area and subsequent to that, another 5 mm trocar was introduced into the patient's abdomen. Then, attention was turned to the right side of the patient's abdomen. Using an 11 blade scalpel knife, two 5 mm incisions were made in a transverse fashion on the right side of the patient's abdomen and subsequent to that, another two 5 mm trocars were introduced into the patient's abdomen. At that point in time, using 2 graspers, the gallbladder was grasped by the fundus and the infundibulum, and using [place] dissector and the suction and irrigation device, the cystic duct and cystic artery were dissected out and a critical view was achieved. At that point in time, cystic duct was clipped with two clips proximal, one distal, and transected with laparoscopic scissors. Same thing was done for the cystic artery. It was clipped with two clips proximal, one distal and transected with laparoscopic scissors. Upon further dissection, we encountered posterior branch of the cystic artery that was dissected out with [place] dissector and clipped with two clips proximal and one distal and transected with laparoscopic scissors. At that point in time, gallbladder was dissected off the gallbladder fossa using special electrical cautery and once the gallbladder was completely freed up from the gallbladder fossa, EndoCatch bag was introduced into the patient's abdomen. The gallbladder was placed inside of the bag and the bag was closed. At that point in time, gallbladder fossa was inspected for hemostasis. Hemostasis was achieved with special electrical cautery. Patient's gallbladder fossa and abdominal cavity were copiously irrigated with sterile saline and the fluid was suctioned out. At that point in time, an 11 mm trocar together with the EndoCatch bag and gallbladder were removed from patient's abdomen and passed off to the [facility] as a specimen. Fascial layer at the umbilical port site was closed with two interrupted 0-Vicryl sutures on UR-5 needle and subsequent to that, patient's abdomen was fully desufflated. The rest of the trocars were removed from patient's abdomen and the skin was closed with 4-0 Monocryl suture in a running subcuticular fashion. At the end of the procedure, incision sites were infiltrated with Marcaine anesthetic. Patient's abdomen was washed and dried and Dermabond was applied to the incisions. Patient was successfully extubated by the anesthesia team, [facility] and taken to the recovery room in a stable condition. At the end of the procedure, all instrument counts, needles, and sponges were correct. Audi Hayward MD
[2017-09-06] MEDS: Ciprofloxacin 400mg/200ml D5W 400 MG/200 ML BAG IVPB SCH (21:36)
[2017-09-06] MEDS: Levothyroxine 112 MCG TAB PO SCH (21:37)
[2017-09-06] MEDS ORDERED: metroNIDAZOLE 500mg/100ml NS 100 ML IVPB SCH (22:00)
[2017-09-07] MEDS: Albuterol-Ipratrop 3 mg / 0.5 (3 ml) UD INH SCH ×4 (01:06→19:27)
[2017-09-07 06:02] LABS: BASO % 0.2 % (0.0-2.0); EOS % 0.1 % (0.0-4.0); HEMATOCRIT 37.8 % (34.0-47.0); LYMPH % 6.5 % (20.0-40.0); MEAN CELL VOLUME 88.8 fl (81.0-99.0); MEAN CORPUSCULAR HEMOGLOBIN 29.1 pg (27.0-31.0); MEAN CORPUSCULAR HGB CONC 32.8 g/dL (33.0-37.0); MEAN PLATELET VOLUME 7.8 fl (7.2-11.7); MONO # 1.4 K/uL (0.0-0.8); MONO % 8.8 % (0.0-10.0); NEUT # 13.1 K/uL (1.8-7.0); NEUT % 84.4 % (50.0-75.0); NRBC % 0.1 % (0.0-0.0); RED CELL DISTRIBUTION WIDTH 14.4 % (11.5-14.5); WHITE BLOOD COUNT 15.5 K/uL (4.8-10.8)
[2017-09-07 06:16] LABS: BLOOD UREA NITROGEN 12 mg/dl (7-17); CALCIUM 8.4 mg/dL (8.4-10.2); CARBON DIOXIDE 24 mmol/L (22-30); CHLORIDE 105 mmol/L (98-107); GFR AFRICAN-AMERICAN > 60; GLUCOSE,RANDOM 113 mg/dL (65-105); POTASSIUM 3.4 MMOL/L (3.6-5.0); SODIUM 139 mmol/l (132-148)
[2017-09-07] MEDS ORDERED: Potassium Chloride 20 mEq ER Tab PO ONE (07:36)
--- NOTE | 2017-09-07 08:06 | CP.PCM.PN ---
<Corbin Uriarte - Last Filed: 09/07/17 08:01> Subjective - Date & Time of Evaluation Date of Evaluation: 09/07/17 Time of Evaluation: 07:00 - Subjective Subjective: Patient seen and examined this morning at bedside. Reports right upper quadrant pain. Patient states she felt nauseous this morning. No acute events over night. Denies chest pain/SOB. Objective - Vital Signs/Intake and Output Vital Signs (last 24 hours): Temp Pulse Resp BP Pulse Ox 97.5 F L 125 H 18 131/80 90 L 09/07/17 07:27 09/07/17 07:27 09/07/17 07:27 09/07/17 07:27 09/07/17 07:27 - Medications Medications: Current Medications Albuterol/Ipratropium (Duoneb 3 Mg/0.5 Mg (3 Ml) Ud) 3 ml INH RQ6 [facility] Last Admin: 09/07/17 07:22 Dose: 3 ml Alprazolam (Xanax) 0.25 mg PO DAILY PRN PRN Reason: Anxiety Stop: 09/13/17 16:19 Amlodipine Besylate (Norvasc) 10 mg PO DAILY [facility] Atorvastatin Calcium (Lipitor) 10 mg PO HS [facility] Last Admin: 09/06/17 21:36 Dose: 10 mg Enoxaparin Sodium (Lovenox) 40 mg SC DAILY [facility] PRN Reason: Protocol Hydromorphone HCl (Dilaudid) 0.5 mg IVP Q4 PRN PRN Reason: Pain, severe (8-10) Stop: 09/07/17 17:42 Last Admin: 09/06/17 21:29 Dose: 0.5 mg Lactated Ringer's (Lactated Ringer's) 1,000 mls @ 75 mls/hr IV .[id number] [facility] Last Admin: 09/06/17 20:25 Dose: Not Given Ciprofloxacin (Cipro 400mg/200ml Dsw) 400 mg in 200 mls @ 240 mls/hr IVPB Q12 [facility] Last Admin: 09/06/17 21:36 Dose: 240 mls/hr Levothyroxine Sodium (Synthroid) 56 mcg PO SUN [facility] Levothyroxine Sodium (Synthroid) 112 mcg PO MOTUWETHFRSA [facility] Last Admin: 09/06/17 21:37 Dose: 112 mcg Metoclopramide HCl (Reglan) 10 mg IVP Q6 PRN PRN Reason: Nausea/Vomiting Last Admin: 09/05/17 22:09 Dose: 10 mg Metronidazole (Flagyl) 500 mg PO Q8 [facility] Last Admin: 09/07/17 01:21 Dose: 500 mg Montelukast Sodium (Singulair) 10 mg PO HS [facility] Last Admin: 09/06/17 21:37 Dose: 10 mg Ondansetron HCl (Zofran Inj) 4 mg IVP Q6 PRN PRN Reason: Nausea/Vomiting Pantoprazole Sodium (Protonix Inj) 40 mg IVP DAILY [facility] Last Admin: 09/06/17 09:10 Dose: 40 mg - Labs Labs: 09/07/17 05:00 09/07/17 05:00 PT 10.8 Seconds (9.8-13.1) 09/05/17 12:20 INR 1.0 (0.9-1.2) 09/05/17 12:20 APTT 27.9 Seconds (25.6-37.1) 09/05/17 12:20 - Constitutional Appears: No Acute Distress - Head Exam Head Exam: NORMOCEPHALIC - Eye Exam Eye Exam: Normal appearance - ENT Exam ENT Exam: Mucous Membranes Moist - Respiratory Exam Respiratory Exam: absent: Accessory Muscle Use - Cardiovascular Exam Cardiovascular Exam: +S1, +S2 - GI/Abdominal Exam GI & Abdominal Exam: Soft, Tenderness. absent: Firm, Guarding, Rigid - Neurological Exam Neurological Exam: Alert, Awake, Oriented x3 - Psychiatric Exam Psychiatric exam: Normal Mood - Skin Skin Exam: Intact, Normal Color, Warm Assessment and Plan - Assessment and Plan (Free Text) Assessment: 77F w/ acute cholecystitis s/p laparoscopic cholecystecomy POD1 -Regular diet -Abx -Anti-emetics/Analgesics -Hold anti-coagulation -Encourage incentive spirometer use -OOB to chair -Further recs per Dr. Mainor Uriarte PGY2 <Audi Hayward - Last Filed: 09/07/17 13:34> Subjective - Date & Time of Evaluation Time of Evaluation: 10:30 - Subjective Subjective: Patient was seen and examined at the bedside. Agree with resident's note above. Objective - Vital Signs/Intake and Output Vital Signs (last 24 hours): Temp Pulse Resp BP Pulse Ox 97.5 F L 115 H 18 131/80 90 L 09/07/17 07:27 09/07/17 08:56 09/07/17 07:27 09/07/17 08:56 09/07/17 07:27 - Medications Medications: Current Medications Albuterol/Ipratropium (Duoneb 3 Mg/0.5 Mg (3 Ml) Ud) 3 ml INH RQ6 [facility] Last Admin: 09/07/17 13:32 Dose: 3 ml Alprazolam (Xanax) 0.25 mg PO DAILY PRN PRN Reason: Anxiety Stop: 09/13/17 16:19 Amlodipine Besylate (Norvasc) 10 mg PO DAILY [facility] Last Admin: 09/07/17 08:56 Dose: 10 mg Atorvastatin Calcium (Lipitor) 10 mg PO HS [facility] Last Admin: 09/06/17 21:36 Dose: 10 mg Enoxaparin Sodium (Lovenox) 40 mg SC DAILY [facility] PRN Reason: Protocol Last Admin: 09/07/17 08:59 Dose: 40 mg Hydromorphone HCl (Dilaudid) 0.5 mg IVP Q4 PRN PRN Reason: Pain, severe (8-10) Stop: 09/07/17 17:42 Last Admin: 09/06/17 21:29 Dose: 0.5 mg Piperacillin Sod/Tazobactam (Sod 3.375 gm/ Sodium Chloride) 100 mls @ 100 mls/ hr IVPB Q8 [facility] PRN Reason: Protocol Last Admin: 09/07/17 12:29 Dose: 100 mls/hr Levothyroxine Sodium (Synthroid) 56 mcg PO SUN [facility] Levothyroxine Sodium (Synthroid) 112 mcg PO MOTUWETHFRSA [facility] Last Admin: 09/06/17 21:37 Dose: 112 mcg Metoclopramide HCl (Reglan) 10 mg IVP Q6 PRN PRN Reason: Nausea/Vomiting Last Admin: 09/05/17 22:09 Dose: 10 mg Metronidazole (Flagyl) 500 mg PO Q8 [facility] Last Admin: 09/07/17 08:56 Dose: 500 mg Montelukast Sodium (Singulair) 10 mg PO HS [facility] Last Admin: 09/06/17 21:37 Dose: 10 mg Ondansetron HCl (Zofran Inj) 4 mg IVP Q6 PRN PRN Reason: Nausea/Vomiting Pantoprazole Sodium (Protonix Inj) 40 mg IVP DAILY [facility] Last Admin: 09/07/17 08:59 Dose: 40 mg - Labs Labs: 09/07/17 05:00 09/07/17 05:00 PT 10.8 Seconds (9.8-13.1) 09/05/17 12:20 INR 1.0 (0.9-1.2) 09/05/17 12:20 APTT 27.9 Seconds (25.6-37.1) 09/05/17 12:20
[2017-09-07] MEDS: Enoxaparin 40 mg Syringe SC SCH (08:59)
[2017-09-07] MEDS ORDERED: levoFLOXacin 750 mg in D5W 150 ML BAG IVPB SCH (09:00)
[2017-09-07] MEDS: Ciprofloxacin 400mg/200ml D5W 400 MG/200 ML BAG IVPB SCH ×2 (09:00→22:17)
--- NOTE | 2017-09-07 09:22 | CP.PCM.PN ---
Subjective - Date & Time of Evaluation Date of Evaluation: 09/07/17 Time of Evaluation: 09:00 - Subjective Subjective: NO CHEST PAIN OR SOB JUST PAIN AT SURGICAL SITE Objective - Vital Signs/Intake and Output Vital Signs (last 24 hours): Temp Pulse Resp BP Pulse Ox 97.5 F L 115 H 18 131/80 90 L 09/07/17 07:27 09/07/17 08:56 09/07/17 07:27 09/07/17 08:56 09/07/17 07:27 - Medications Medications: Current Medications Albuterol/Ipratropium (Duoneb 3 Mg/0.5 Mg (3 Ml) Ud) 3 ml INH RQ6 [facility] Last Admin: 09/07/17 07:22 Dose: 3 ml Alprazolam (Xanax) 0.25 mg PO DAILY PRN PRN Reason: Anxiety Stop: 09/13/17 16:19 Amlodipine Besylate (Norvasc) 10 mg PO DAILY [facility] Last Admin: 09/07/17 08:56 Dose: 10 mg Atorvastatin Calcium (Lipitor) 10 mg PO HS [facility] Last Admin: 09/06/17 21:36 Dose: 10 mg Enoxaparin Sodium (Lovenox) 40 mg SC DAILY [facility] PRN Reason: Protocol Last Admin: 09/07/17 08:59 Dose: 40 mg Hydromorphone HCl (Dilaudid) 0.5 mg IVP Q4 PRN PRN Reason: Pain, severe (8-10) Stop: 09/07/17 17:42 Last Admin: 09/06/17 21:29 Dose: 0.5 mg Lactated Ringer's (Lactated Ringer's) 1,000 mls @ 75 mls/hr IV .[id number] [facility] Last Admin: 09/06/17 20:25 Dose: Not Given Ciprofloxacin (Cipro 400mg/200ml Dsw) 400 mg in 200 mls @ 240 mls/hr IVPB Q12 [facility] Last Admin: 09/07/17 09:00 Dose: 240 mls/hr Levothyroxine Sodium (Synthroid) 56 mcg PO SUN [facility] Levothyroxine Sodium (Synthroid) 112 mcg PO MOTUWETHFRSA [facility] Last Admin: 09/06/17 21:37 Dose: 112 mcg Metoclopramide HCl (Reglan) 10 mg IVP Q6 PRN PRN Reason: Nausea/Vomiting Last Admin: 09/05/17 22:09 Dose: 10 mg Metronidazole (Flagyl) 500 mg PO Q8 [facility] Last Admin: 09/07/17 08:56 Dose: 500 mg Montelukast Sodium (Singulair) 10 mg PO HS [facility] Last Admin: 09/06/17 21:37 Dose: 10 mg Ondansetron HCl (Zofran Inj) 4 mg IVP Q6 PRN PRN Reason: Nausea/Vomiting Pantoprazole Sodium (Protonix Inj) 40 mg IVP DAILY [facility] Last Admin: 09/07/17 08:59 Dose: 40 mg - Labs Labs: 09/07/17 05:00 09/07/17 05:00 PT 10.8 Seconds (9.8-13.1) 09/05/17 12:20 INR 1.0 (0.9-1.2) 09/05/17 12:20 APTT 27.9 Seconds (25.6-37.1) 09/05/17 12:20 - Respiratory Exam Respiratory Exam: Clear to Ausculation Bilateral - Cardiovascular Exam Cardiovascular Exam: REGULAR RHYTHM, +S1, +S2 - Extremities Exam Extremities Exam: Normal Inspection - Additional Findings Additional findings: WBC 15.5 Assessment and Plan - Assessment and Plan (Free Text) Assessment: CHOLECYSTITIS WITH LAP CHOLY HYPERTENSION HYPERLIPIDEMIA Plan: CONTINUE ANTIBIOTICS, ATORVASTATIN AND AMLODIPINE
[2017-09-07] MEDS: Piperacillin/Tazobact 3.375 GM in Sodium Chloride 0.9% 100 ML IVPB SCH ×2 (12:29→17:37)
--- NOTE | 2017-09-07 13:09 | CP.PCM.PN ---
Subjective - Date & Time of Evaluation Date of Evaluation: 09/07/17 Time of Evaluation: 13:00 - Subjective Subjective: doing well Objective - Vital Signs/Intake and Output Vital Signs (last 24 hours): Temp Pulse Resp BP Pulse Ox 97.5 F L 115 H 18 131/80 90 L 09/07/17 07:27 09/07/17 08:56 09/07/17 07:27 09/07/17 08:56 09/07/17 07:27 - Medications Medications: Current Medications Albuterol/Ipratropium (Duoneb 3 Mg/0.5 Mg (3 Ml) Ud) 3 ml INH RQ6 [facility] Last Admin: 09/07/17 07:22 Dose: 3 ml Alprazolam (Xanax) 0.25 mg PO DAILY PRN PRN Reason: Anxiety Stop: 09/13/17 16:19 Amlodipine Besylate (Norvasc) 10 mg PO DAILY [facility] Last Admin: 09/07/17 08:56 Dose: 10 mg Atorvastatin Calcium (Lipitor) 10 mg PO HS [facility] Last Admin: 09/06/17 21:36 Dose: 10 mg Enoxaparin Sodium (Lovenox) 40 mg SC DAILY [facility] PRN Reason: Protocol Last Admin: 09/07/17 08:59 Dose: 40 mg Hydromorphone HCl (Dilaudid) 0.5 mg IVP Q4 PRN PRN Reason: Pain, severe (8-10) Stop: 09/07/17 17:42 Last Admin: 09/06/17 21:29 Dose: 0.5 mg Piperacillin Sod/Tazobactam (Sod 3.375 gm/ Sodium Chloride) 100 mls @ 100 mls/ hr IVPB Q8 [facility] PRN Reason: Protocol Last Admin: 09/07/17 12:29 Dose: 100 mls/hr Levothyroxine Sodium (Synthroid) 56 mcg PO SUN [facility] Levothyroxine Sodium (Synthroid) 112 mcg PO MOTUWETHFRSA [facility] Last Admin: 09/06/17 21:37 Dose: 112 mcg Metoclopramide HCl (Reglan) 10 mg IVP Q6 PRN PRN Reason: Nausea/Vomiting Last Admin: 09/05/17 22:09 Dose: 10 mg Metronidazole (Flagyl) 500 mg PO Q8 [facility] Last Admin: 09/07/17 08:56 Dose: 500 mg Montelukast Sodium (Singulair) 10 mg PO HS [facility] Last Admin: 09/06/17 21:37 Dose: 10 mg Ondansetron HCl (Zofran Inj) 4 mg IVP Q6 PRN PRN Reason: Nausea/Vomiting Pantoprazole Sodium (Protonix Inj) 40 mg IVP DAILY [facility] Last Admin: 09/07/17 08:59 Dose: 40 mg - Labs Labs: 09/07/17 05:00 09/07/17 05:00 PT 10.8 Seconds (9.8-13.1) 09/05/17 12:20 INR 1.0 (0.9-1.2) 09/05/17 12:20 APTT 27.9 Seconds (25.6-37.1) 09/05/17 12:20 - Neck Exam Neck Exam: Normal Inspection - Cardiovascular Exam Cardiovascular Exam: REGULAR RHYTHM - GI/Abdominal Exam GI & Abdominal Exam: Soft, Tenderness, Normal Bowel Sounds Assessment and Plan - Assessment and Plan (Free Text) Assessment: 77 yo female with cholecystitis doing well dc planning when able
--- NOTE | 2017-09-07 14:07 | CP.PCM.PN ---
Subjective - Date & Time of Evaluation Date of Evaluation: 09/07/17 Time of Evaluation: 14:08 - Subjective Subjective: ABDOMINAL PAIN RESOLVING NO NAUSEA/VOMITING MILD SOB ON EXERTION Objective - Vital Signs/Intake and Output Vital Signs (last 24 hours): Temp Pulse Resp BP Pulse Ox 97.5 F L 115 H 18 131/80 90 L 09/07/17 07:27 09/07/17 08:56 09/07/17 07:27 09/07/17 08:56 09/07/17 07:27 - Medications Medications: Current Medications Albuterol/Ipratropium (Duoneb 3 Mg/0.5 Mg (3 Ml) Ud) 3 ml INH RQ6 [facility] Last Admin: 09/07/17 13:32 Dose: 3 ml Alprazolam (Xanax) 0.25 mg PO DAILY PRN PRN Reason: Anxiety Stop: 09/13/17 16:19 Amlodipine Besylate (Norvasc) 10 mg PO DAILY [facility] Last Admin: 09/07/17 08:56 Dose: 10 mg Atorvastatin Calcium (Lipitor) 10 mg PO HS [facility] Last Admin: 09/06/17 21:36 Dose: 10 mg Enoxaparin Sodium (Lovenox) 40 mg SC DAILY [facility] PRN Reason: Protocol Last Admin: 09/07/17 08:59 Dose: 40 mg Hydromorphone HCl (Dilaudid) 0.5 mg IVP Q4 PRN PRN Reason: Pain, severe (8-10) Stop: 09/07/17 17:42 Last Admin: 09/06/17 21:29 Dose: 0.5 mg Piperacillin Sod/Tazobactam (Sod 3.375 gm/ Sodium Chloride) 100 mls @ 100 mls/ hr IVPB Q8 [facility] PRN Reason: Protocol Last Admin: 09/07/17 12:29 Dose: 100 mls/hr Levothyroxine Sodium (Synthroid) 56 mcg PO SUN [facility] Levothyroxine Sodium (Synthroid) 112 mcg PO MOTUWETHFRSA [facility] Last Admin: 09/06/17 21:37 Dose: 112 mcg Metoclopramide HCl (Reglan) 10 mg IVP Q6 PRN PRN Reason: Nausea/Vomiting Last Admin: 09/05/17 22:09 Dose: 10 mg Metronidazole (Flagyl) 500 mg PO Q8 [facility] Last Admin: 09/07/17 08:56 Dose: 500 mg Montelukast Sodium (Singulair) 10 mg PO HS [facility] Last Admin: 09/06/17 21:37 Dose: 10 mg Ondansetron HCl (Zofran Inj) 4 mg IVP Q6 PRN PRN Reason: Nausea/Vomiting Pantoprazole Sodium (Protonix Inj) 40 mg IVP DAILY [facility] Last Admin: 09/07/17 08:59 Dose: 40 mg - Labs Labs: 09/07/17 05:00 09/07/17 05:00 PT 10.8 Seconds (9.8-13.1) 09/05/17 12:20 INR 1.0 (0.9-1.2) 09/05/17 12:20 APTT 27.9 Seconds (25.6-37.1) 09/05/17 12:20 - Constitutional Appears: No Acute Distress - Head Exam Head Exam: ATRAUMATIC, NORMAL INSPECTION, NORMOCEPHALIC - Eye Exam Eye Exam: EOMI, Normal appearance, PERRL Pupil Exam: NORMAL ACCOMODATION, PERRL - ENT Exam ENT Exam: Mucous Membranes Moist, Normal Exam - Neck Exam Neck Exam: Full ROM, Normal Inspection. absent: Lymphadenopathy - Respiratory Exam Respiratory Exam: Prolonged Expiratory Phase, Rales, Wheezes, NORMAL BREATHING PATTERN - Cardiovascular Exam Cardiovascular Exam: REGULAR RHYTHM, +S1, +S2. absent: Murmur - GI/Abdominal Exam GI & Abdominal Exam: Soft, Normal Bowel Sounds. absent: Tenderness - Rectal Exam Rectal Exam: NORMAL INSPECTION - Extremities Exam Extremities Exam: Full ROM, Normal Capillary Refill, Normal Inspection. absent : Joint Swelling, Pedal Edema - Back Exam Back Exam: NORMAL INSPECTION - Neurological Exam Neurological Exam: Alert, Awake, CN II-XII Intact, Normal Gait, Oriented x3 - Psychiatric Exam Psychiatric exam: Normal Affect, Normal Mood - Skin Skin Exam: Dry, Intact, Normal Color, Warm Assessment and Plan - Assessment and Plan (Free Text) Assessment: S/P CHOLECYSTECTOMY LEUKOCYTOSIS COPD CHRONIC CHF HYPOTHYROIDISM HYPOKALEMIA Plan: CONTINUE PRESENT RX K+ SUPPLEMENTS MONITOR WBC CONTINUE IV ANTIBIOTICS
[2017-09-07] MEDS: Levothyroxine 112 MCG TAB PO SCH (17:37)
[2017-09-07] MEDS ORDERED: Ciprofloxacin 400mg/200ml D5W 400 MG/200 ML BAG IVPB SCH (21:00)
[2017-09-08] MEDS: Albuterol-Ipratrop 3 mg / 0.5 (3 ml) UD INH SCH ×4 (01:04→19:00)
[2017-09-08] MEDS ORDERED: Oxycodone/Acetaminophen 5/325 mg Tab PO PRN (04:41)
[2017-09-08 07:24] LABS: BASO % 0.2 % (0.0-2.0); EOS # 0.1 K/uL (0.0-0.7); EOS % 0.5 % (0.0-4.0); HEMATOCRIT 36.2 % (34.0-47.0); LYMPH # 1.2 K/uL (1.0-4.3); MEAN CELL VOLUME 88.3 fl (81.0-99.0); MEAN CORPUSCULAR HEMOGLOBIN 29.5 pg (27.0-31.0); MEAN CORPUSCULAR HGB CONC 33.4 g/dL (33.0-37.0); MEAN PLATELET VOLUME 8.3 fl (7.2-11.7); MONO % 8.4 % (0.0-10.0); NEUT % 79.9 % (50.0-75.0); RED CELL DISTRIBUTION WIDTH 14.4 % (11.5-14.5); WHITE BLOOD COUNT 11.3 K/uL (4.8-10.8)
[2017-09-08 07:49] LABS: ALB/GLOB RATIO 0.9 (1.0-2.1); ALKALINE PHOSPHATASE 99 U/L (38-126); ALT/SGPT 53 U/L (9-52); AST/SGOT 35 U/L (14-36); BILIRUBIN,TOTAL 0.7 mg/dl (0.2-1.3); BLOOD UREA NITROGEN 12 mg/dl (7-17); CALCIUM 8.9 mg/dL (8.4-10.2); CARBON DIOXIDE 26 mmol/L (22-30); CHLORIDE 106 mmol/L (98-107); GFR AFRICAN-AMERICAN > 60; GLUCOSE,RANDOM 110 mg/dL (65-105); POTASSIUM 3.3 MMOL/L (3.6-5.0); SODIUM 140 mmol/l (132-148); TOTAL PROTEIN 6.5 G/DL (6.3-8.2)
--- NOTE | 2017-09-08 09:05 | CP.PCM.PN ---
<Neva Wolf - Last Filed: 09/08/17 09:03> Subjective - Date & Time of Evaluation Date of Evaluation: 09/08/17 Time of Evaluation: 07:30 - Subjective Subjective: Patient seen and examined this AM. ANALIAEO. States pain is improving, denies nausea , vomiting, had 2 liquid bowel movements yesterday and tolerated Heart healthy diet. Objective - Vital Signs/Intake and Output Vital Signs (last 24 hours): Temp Pulse Resp BP Pulse Ox 98 F 88 20 132/67 93 L 09/08/17 08:55 09/08/17 08:55 09/08/17 08:55 09/08/17 08:55 09/08/17 08:55 - Medications Medications: Current Medications Albuterol/Ipratropium (Duoneb 3 Mg/0.5 Mg (3 Ml) Ud) 3 ml INH RQ6 [facility] Last Admin: 09/08/17 07:17 Dose: 3 ml Alprazolam (Xanax) 0.25 mg PO DAILY PRN PRN Reason: Anxiety Stop: 09/13/17 16:19 Amlodipine Besylate (Norvasc) 10 mg PO DAILY [facility] Last Admin: 09/07/17 08:56 Dose: 10 mg Atorvastatin Calcium (Lipitor) 10 mg PO HS [facility] Last Admin: 09/07/17 22:18 Dose: 10 mg Enoxaparin Sodium (Lovenox) 40 mg SC DAILY [facility] PRN Reason: Protocol Last Admin: 09/07/17 08:59 Dose: 40 mg Ciprofloxacin (Cipro 400mg/200ml Dsw) 400 mg in 200 mls @ 200 mls/hr IVPB Q12@ 1000,2200 [facility] PRN Reason: Protocol Last Admin: 09/07/17 22:17 Dose: 200 mls/hr Levothyroxine Sodium (Synthroid) 56 mcg PO SUN [facility] Levothyroxine Sodium (Synthroid) 112 mcg PO MOTUWETHFRSA [facility] Last Admin: 09/07/17 17:37 Dose: 112 mcg Metoclopramide HCl (Reglan) 10 mg IVP Q6 PRN PRN Reason: Nausea/Vomiting Last Admin: 09/05/17 22:09 Dose: 10 mg Metronidazole (Flagyl) 500 mg PO Q8 [facility] Last Admin: 09/08/17 00:52 Dose: 500 mg Montelukast Sodium (Singulair) 10 mg PO HS [facility] Last Admin: 09/07/17 22:19 Dose: 10 mg Ondansetron HCl (Zofran Inj) 4 mg IVP Q6 PRN PRN Reason: Nausea/Vomiting Oxycodone/Acetaminophen (Percocet 5/325 Mg Tab) 1 tab PO Q6 PRN PRN Reason: Pain, moderate (4-7) Stop: 09/11/17 04:42 Pantoprazole Sodium (Protonix Inj) 40 mg IVP DAILY [facility] Last Admin: 09/07/17 08:59 Dose: 40 mg Potassium Chloride (K-Dur 20 Meq Er Tab) 20 meq PO BID [facility] - Labs Labs: 09/08/17 05:30 09/08/17 05:30 PT 10.8 Seconds (9.8-13.1) 09/05/17 12:20 INR 1.0 (0.9-1.2) 09/05/17 12:20 APTT 27.9 Seconds (25.6-37.1) 09/05/17 12:20 - Constitutional Appears: Non-toxic, No Acute Distress - Head Exam Head Exam: ATRAUMATIC, NORMOCEPHALIC - Eye Exam Eye Exam: Normal appearance. absent: Conjunctival injection, Scleral icterus - ENT Exam ENT Exam: Mucous Membranes Moist, Normal Oropharynx - Respiratory Exam Respiratory Exam: Respiratory Distress (mild SOB while talking), NORMAL BREATHING PATTERN. absent: Accessory Muscle Use - Cardiovascular Exam Cardiovascular Exam: RRR - GI/Abdominal Exam GI & Abdominal Exam: Distended, Soft, Tenderness (RUQ/RLQ). absent: Guarding, Rebound Additional comments: incision sites C/D/I, no erythema or drainage - Extremities Exam Extremities Exam: absent: Calf Tenderness, Pedal Edema, Tenderness - Neurological Exam Neurological Exam: Alert, Awake, Oriented x3 - Psychiatric Exam Psychiatric exam: Normal Affect, Normal Mood - Skin Skin Exam: Dry, Normal Color, Warm Assessment and Plan - Assessment and Plan (Free Text) Assessment: 77F with Acute cholecystitis POD#2 s/p laparoscopic cholecystectomy Plan: -Patient is clear for discharge from a surgical with PO antibiotics, PO pain medication if needed, and follow up with Dr. Hayward in his office in 2 weeks. Patient may resume normal diet and ADL's, but should avoid lifting >10pounds or soaking the incisions. -Continue medical management per the primary team -Please contact surgical team for any further questions or concerns. Discussed with Dr. Mainor Wolf, PGY2 <Audi Hayward - Last Filed: 09/08/17 13:02> Subjective - Date & Time of Evaluation Time of Evaluation: 12:20 - Subjective Subjective: Patient was seen and examined at the bedside. Agree with resident's note above. Objective - Vital Signs/Intake and Output Vital Signs (last 24 hours): Temp Pulse Resp BP Pulse Ox 98 F 88 20 132/67 93 L 09/08/17 08:55 09/08/17 09:08 09/08/17 08:55 09/08/17 09:08 09/08/17 08:55 - Medications Medications: Current Medications Albuterol/Ipratropium (Duoneb 3 Mg/0.5 Mg (3 Ml) Ud) 3 ml INH RQ6 [facility] Last Admin: 09/08/17 07:17 Dose: 3 ml Alprazolam (Xanax) 0.25 mg PO DAILY PRN PRN Reason: Anxiety Stop: 09/13/17 16:19 Amlodipine Besylate (Norvasc) 10 mg PO DAILY [facility] Atorvastatin Calcium (Lipitor) 10 mg PO HS [facility] Last Admin: 09/07/17 22:18 Dose: 10 mg Enoxaparin Sodium (Lovenox) 40 mg SC DAILY [facility] PRN Reason: Protocol Last Admin: 09/08/17 09:25 Dose: 40 mg Ciprofloxacin (Cipro 400mg/200ml Dsw) 400 mg in 200 mls @ 200 mls/hr IVPB Q12@ 1000,2200 [facility] PRN Reason: Protocol Last Admin: 09/08/17 11:58 Dose: 200 mls/hr Levothyroxine Sodium (Synthroid) 56 mcg PO SUN [facility] Levothyroxine Sodium (Synthroid) 112 mcg PO MOTUWETHFRSA [facility] Last Admin: 09/08/17 09:08 Dose: 112 mcg Metoclopramide HCl (Reglan) 10 mg IVP Q6 PRN PRN Reason: Nausea/Vomiting Last Admin: 09/05/17 22:09 Dose: 10 mg Metronidazole (Flagyl) 500 mg PO Q8 [facility] Last Admin: 09/08/17 09:07 Dose: 500 mg Montelukast Sodium (Singulair) 10 mg PO HS [facility] Last Admin: 09/07/17 22:19 Dose: 10 mg Ondansetron HCl (Zofran Inj) 4 mg IVP Q6 PRN PRN Reason: Nausea/Vomiting Oxycodone/Acetaminophen (Percocet 5/325 Mg Tab) 1 tab PO Q6 PRN PRN Reason: Pain, moderate (4-7) Stop: 09/11/17 04:42 Pantoprazole Sodium (Protonix Inj) 40 mg IVP DAILY [facility] Last Admin: 09/08/17 09:25 Dose: 40 mg Potassium Chloride (K-Dur 20 Meq Er Tab) 20 meq PO BID [facility] Last Admin: 09/08/17 09:25 Dose: 20 meq - Labs Labs: 09/08/17 05:30 09/08/17 05:30 PT 10.8 Seconds (9.8-13.1) 09/05/17 12:20 INR 1.0 (0.9-1.2) 09/05/17 12:20 APTT 27.9 Seconds (25.6-37.1) 09/05/17 12:20
[2017-09-08] MEDS: Levothyroxine 112 MCG TAB PO SCH (09:08)
[2017-09-08] MEDS: Enoxaparin 40 mg Syringe SC SCH (09:25)
[2017-09-08] MEDS: Potassium Chloride 20 mEq ER Tab PO SCH ×2 (09:25→16:35)
[2017-09-08] MEDS: Ciprofloxacin 400mg/200ml D5W 400 MG/200 ML BAG IVPB SCH ×2 (11:58→21:42)
--- NOTE | 2017-09-08 12:43 | CP.PCM.PN ---
Subjective - Date & Time of Evaluation Date of Evaluation: 09/08/17 Time of Evaluation: 12:49 - Subjective Subjective: ABDOMINAL PAIN LESS HAD W[employer]OW[employer] MOVEMENT YESTERDAY BUT NONE TODAY REQUESTS TRANSITIONAL CARE PRIOR TO GOING HOME Objective - Vital Signs/Intake and Output Vital Signs (last 24 hours): Temp Pulse Resp BP Pulse Ox 98 F 88 20 132/67 93 L 09/08/17 08:55 09/08/17 09:08 09/08/17 08:55 09/08/17 09:08 09/08/17 08:55 - Medications Medications: Current Medications Albuterol/Ipratropium (Duoneb 3 Mg/0.5 Mg (3 Ml) Ud) 3 ml INH RQ6 [facility] Last Admin: 09/08/17 07:17 Dose: 3 ml Alprazolam (Xanax) 0.25 mg PO DAILY PRN PRN Reason: Anxiety Stop: 09/13/17 16:19 Amlodipine Besylate (Norvasc) 10 mg PO DAILY [facility] Last Admin: 09/08/17 09:08 Dose: 10 mg Atorvastatin Calcium (Lipitor) 10 mg PO HS [facility] Last Admin: 09/07/17 22:18 Dose: 10 mg Enoxaparin Sodium (Lovenox) 40 mg SC DAILY [facility] PRN Reason: Protocol Last Admin: 09/08/17 09:25 Dose: 40 mg Ciprofloxacin (Cipro 400mg/200ml Dsw) 400 mg in 200 mls @ 200 mls/hr IVPB Q12@ 1000,2200 [facility] PRN Reason: Protocol Last Admin: 09/08/17 11:58 Dose: 200 mls/hr Levothyroxine Sodium (Synthroid) 56 mcg PO SUN [facility] Levothyroxine Sodium (Synthroid) 112 mcg PO MOTUWETHFRSA [facility] Last Admin: 09/08/17 09:08 Dose: 112 mcg Metoclopramide HCl (Reglan) 10 mg IVP Q6 PRN PRN Reason: Nausea/Vomiting Last Admin: 09/05/17 22:09 Dose: 10 mg Metronidazole (Flagyl) 500 mg PO Q8 [facility] Last Admin: 09/08/17 09:07 Dose: 500 mg Montelukast Sodium (Singulair) 10 mg PO HS [facility] Last Admin: 09/07/17 22:19 Dose: 10 mg Ondansetron HCl (Zofran Inj) 4 mg IVP Q6 PRN PRN Reason: Nausea/Vomiting Oxycodone/Acetaminophen (Percocet 5/325 Mg Tab) 1 tab PO Q6 PRN PRN Reason: Pain, moderate (4-7) Stop: 09/11/17 04:42 Pantoprazole Sodium (Protonix Inj) 40 mg IVP DAILY [facility] Last Admin: 09/08/17 09:25 Dose: 40 mg Potassium Chloride (K-Dur 20 Meq Er Tab) 20 meq PO BID [facility] Last Admin: 09/08/17 09:25 Dose: 20 meq - Labs Labs: 09/08/17 05:30 09/08/17 05:30 PT 10.8 Seconds (9.8-13.1) 09/05/17 12:20 INR 1.0 (0.9-1.2) 09/05/17 12:20 APTT 27.9 Seconds (25.6-37.1) 09/05/17 12:20 - Constitutional Appears: No Acute Distress - Head Exam Head Exam: ATRAUMATIC, NORMAL INSPECTION, NORMOCEPHALIC - Eye Exam Eye Exam: EOMI, Normal appearance, PERRL Pupil Exam: NORMAL ACCOMODATION, PERRL - ENT Exam ENT Exam: Mucous Membranes Moist, Normal Exam - Neck Exam Neck Exam: Full ROM, Normal Inspection. absent: Lymphadenopathy - Respiratory Exam Respiratory Exam: Clear to Ausculation Bilateral, NORMAL BREATHING PATTERN - Cardiovascular Exam Cardiovascular Exam: REGULAR RHYTHM, +S1, +S2. absent: Murmur - GI/Abdominal Exam GI & Abdominal Exam: Soft, Normal Bowel Sounds. absent: Tenderness - Rectal Exam Rectal Exam: NORMAL INSPECTION - Extremities Exam Extremities Exam: Full ROM, Normal Capillary Refill, Normal Inspection. absent : Joint Swelling, Pedal Edema - Back Exam Back Exam: NORMAL INSPECTION - Neurological Exam Neurological Exam: Alert, Awake, CN II-XII Intact, Normal Gait, Oriented x3 - Psychiatric Exam Psychiatric exam: Normal Affect, Normal Mood - Skin Skin Exam: Dry, Intact, Normal Color, Warm Assessment and Plan - Assessment and Plan (Free Text) Assessment: S/P CHOLECYSTECTOMY DECONDITIONING HYPOKALEMIA LEUKOCYTOSIS IMPROVED COPD CHRONIC COMPENSATED CHF Plan: CONTINUE PRESENT RX WILL REFER TO DEPOSIT REFUND CLERK FOR TCU
--- NOTE | 2017-09-08 15:00 | CP.PCM.PN ---
Subjective - Date & Time of Evaluation Date of Evaluation: 09/08/17 Time of Evaluation: 14:30 - Subjective Subjective: LESS ABDOMINAL PAIN NO CHEST PAIN Objective - Vital Signs/Intake and Output Vital Signs (last 24 hours): Temp Pulse Resp BP Pulse Ox 98 F 88 20 132/67 93 L 09/08/17 08:55 09/08/17 09:08 09/08/17 08:55 09/08/17 09:08 09/08/17 08:55 - Medications Medications: Current Medications Albuterol/Ipratropium (Duoneb 3 Mg/0.5 Mg (3 Ml) Ud) 3 ml INH RQ6 [facility] Last Admin: 09/08/17 13:08 Dose: 3 ml Alprazolam (Xanax) 0.25 mg PO DAILY PRN PRN Reason: Anxiety Stop: 09/13/17 16:19 Amlodipine Besylate (Norvasc) 10 mg PO DAILY [facility] Atorvastatin Calcium (Lipitor) 10 mg PO HS [facility] Last Admin: 09/07/17 22:18 Dose: 10 mg Enoxaparin Sodium (Lovenox) 40 mg SC DAILY [facility] PRN Reason: Protocol Last Admin: 09/08/17 09:25 Dose: 40 mg Ciprofloxacin (Cipro 400mg/200ml Dsw) 400 mg in 200 mls @ 200 mls/hr IVPB Q12@ 1000,2200 [facility] PRN Reason: Protocol Last Admin: 09/08/17 11:58 Dose: 200 mls/hr Levothyroxine Sodium (Synthroid) 56 mcg PO SUN [facility] Levothyroxine Sodium (Synthroid) 112 mcg PO MoTuWeThFrSa@0630 [facility] Metoclopramide HCl (Reglan) 10 mg IVP Q6 PRN PRN Reason: Nausea/Vomiting Last Admin: 09/05/17 22:09 Dose: 10 mg Metronidazole (Flagyl) 500 mg PO Q8 [facility] Last Admin: 09/08/17 09:07 Dose: 500 mg Montelukast Sodium (Singulair) 10 mg PO HS [facility] Last Admin: 09/07/17 22:19 Dose: 10 mg Ondansetron HCl (Zofran Inj) 4 mg IVP Q6 PRN PRN Reason: Nausea/Vomiting Oxycodone/Acetaminophen (Percocet 5/325 Mg Tab) 1 tab PO Q6 PRN PRN Reason: Pain, moderate (4-7) Stop: 09/11/17 04:42 Pantoprazole Sodium (Protonix Ec Tab) 40 mg PO DAILY [facility] Potassium Chloride (K-Dur 20 Meq Er Tab) 20 meq PO BID [facility] Last Admin: 09/08/17 09:25 Dose: 20 meq - Labs Labs: 09/08/17 05:30 09/08/17 05:30 PT 10.8 Seconds (9.8-13.1) 09/05/17 12:20 INR 1.0 (0.9-1.2) 09/05/17 12:20 APTT 27.9 Seconds (25.6-37.1) 09/05/17 12:20 - Respiratory Exam Respiratory Exam: Clear to Ausculation Bilateral - Cardiovascular Exam Cardiovascular Exam: REGULAR RHYTHM, +S1, +S2 - Extremities Exam Extremities Exam: Normal Inspection Assessment and Plan - Assessment and Plan (Free Text) Assessment: S/P LAP CHOLEYSTECTOMY FOR ACUTE CHOLECYSTITIS HYPERTENSION HYPERLIPIDEMIA Plan: CONTINUE ANTIBIOTICS, AMLODIPINE AND ATORVASTATIN
[2017-09-09] MEDS: Albuterol-Ipratrop 3 mg / 0.5 (3 ml) UD INH SCH ×4 (00:59→19:11)
[2017-09-09 06:54] LABS: BASO % 0.5 % (0.0-2.0); EOS # 0.2 K/uL (0.0-0.7); HEMATOCRIT 35.9 % (34.0-47.0); LYMPH # 1.6 K/uL (1.0-4.3); LYMPH % 16.4 % (20.0-40.0); MEAN CELL VOLUME 88.8 fl (81.0-99.0); MEAN CORPUSCULAR HEMOGLOBIN 29.7 pg (27.0-31.0); MEAN CORPUSCULAR HGB CONC 33.4 g/dL (33.0-37.0); MONO # 0.8 K/uL (0.0-0.8); MONO % 8.5 % (0.0-10.0); NEUT # 7.1 K/uL (1.8-7.0); NEUT % 72.6 % (50.0-75.0); RED CELL DISTRIBUTION WIDTH 14.5 % (11.5-14.5); WHITE BLOOD COUNT 9.8 K/uL (4.8-10.8)
[2017-09-09 06:58] LABS: ALKALINE PHOSPHATASE 97 U/L (38-126); ALT/SGPT 37 U/L (9-52); AST/SGOT 24 U/L (14-36); BILIRUBIN,TOTAL 0.6 mg/dl (0.2-1.3); BLOOD UREA NITROGEN 15 mg/dl (7-17); CALCIUM 8.7 mg/dL (8.4-10.2); CARBON DIOXIDE 26 mmol/L (22-30); CHLORIDE 105 mmol/L (98-107); GFR AFRICAN-AMERICAN > 60; GLUCOSE,RANDOM 97 mg/dL (65-105); POTASSIUM 3.6 MMOL/L (3.6-5.0); SODIUM 139 mmol/l (132-148); TOTAL PROTEIN 6.3 G/DL (6.3-8.2)
[2017-09-09] MEDS: Potassium Chloride 20 mEq ER Tab PO SCH ×2 (08:36→16:35)
[2017-09-09] MEDS: Pantoprazole 40 mg EC Tab PO SCH (08:36)
--- NOTE | 2017-09-09 08:47 | CP.PCM.PN ---
<Levi Golden - Last Filed: 09/09/17 08:48> Subjective - Date & Time of Evaluation Date of Evaluation: 09/09/17 Time of Evaluation: 08:47 - Subjective Subjective: Surgery: Dr. Hayward Pt seen and examined. Resting comfortably in bed. No acute events over night. Pt has some difficulty ambulating, otherwise no complaints. Objective - Vital Signs/Intake and Output Vital Signs (last 24 hours): Temp Pulse Resp BP Pulse Ox 97.8 F 99 H 20 111/72 93 L 09/09/17 08:25 09/09/17 08:25 09/09/17 08:25 09/09/17 08:25 09/09/17 08:25 - Medications Medications: Current Medications Albuterol/Ipratropium (Duoneb 3 Mg/0.5 Mg (3 Ml) Ud) 3 ml INH RQ6 [facility] Last Admin: 09/09/17 07:11 Dose: 3 ml Alprazolam (Xanax) 0.25 mg PO DAILY PRN PRN Reason: Anxiety Stop: 09/13/17 16:19 Amlodipine Besylate (Norvasc) 10 mg PO DAILY [facility] Last Admin: 09/08/17 21:40 Dose: Not Given Atorvastatin Calcium (Lipitor) 10 mg PO HS [facility] Last Admin: 09/08/17 21:42 Dose: 10 mg Enoxaparin Sodium (Lovenox) 40 mg SC DAILY [facility] PRN Reason: Protocol Last Admin: 09/08/17 09:25 Dose: 40 mg Ciprofloxacin (Cipro 400mg/200ml Dsw) 400 mg in 200 mls @ 200 mls/hr IVPB Q12@ 1000,2200 [facility] PRN Reason: Protocol Last Admin: 09/08/17 21:42 Dose: 200 mls/hr Levothyroxine Sodium (Synthroid) 56 mcg PO SUN [facility] Last Admin: 09/09/17 08:37 Dose: 56 mcg Levothyroxine Sodium (Synthroid) 112 mcg PO MoTuWeThFrSa@0630 [facility] Metoclopramide HCl (Reglan) 10 mg IVP Q6 PRN PRN Reason: Nausea/Vomiting Last Admin: 09/05/17 22:09 Dose: 10 mg Metronidazole (Flagyl) 500 mg PO Q8 [facility] Last Admin: 09/09/17 01:10 Dose: 500 mg Montelukast Sodium (Singulair) 10 mg PO HS [facility] Last Admin: 09/08/17 21:42 Dose: 10 mg Ondansetron HCl (Zofran Inj) 4 mg IVP Q6 PRN PRN Reason: Nausea/Vomiting Oxycodone/Acetaminophen (Percocet 5/325 Mg Tab) 1 tab PO Q6 PRN PRN Reason: Pain, moderate (4-7) Stop: 09/11/17 04:42 Last Admin: 09/08/17 22:00 Dose: 1 tab Pantoprazole Sodium (Protonix Ec Tab) 40 mg PO DAILY [facility] Last Admin: 09/09/17 08:36 Dose: 40 mg Potassium Chloride (K-Dur 20 Meq Er Tab) 20 meq PO BID [facility] Last Admin: 09/09/17 08:36 Dose: 20 meq - Labs Labs: 09/09/17 05:30 09/09/17 05:30 PT 10.8 Seconds (9.8-13.1) 09/05/17 12:20 INR 1.0 (0.9-1.2) 09/05/17 12:20 APTT 27.9 Seconds (25.6-37.1) 09/05/17 12:20 - Constitutional Appears: Non-toxic, No Acute Distress - Head Exam Head Exam: ATRAUMATIC, NORMOCEPHALIC - Eye Exam Eye Exam: EOMI. absent: Scleral icterus - ENT Exam ENT Exam: Mucous Membranes Moist, Normal External Ear Exam - Neck Exam Neck Exam: Full ROM - Respiratory Exam Respiratory Exam: NORMAL BREATHING PATTERN. absent: Accessory Muscle Use, Respiratory Distress - GI/Abdominal Exam GI & Abdominal Exam: Soft. absent: Distended, Guarding, Rigid, Tenderness, Rebound - Extremities Exam Extremities Exam: absent: Calf Tenderness, Pedal Edema - Neurological Exam Neurological Exam: Alert, Awake, Oriented x3 - Psychiatric Exam Psychiatric exam: Normal Affect, Normal Mood - Skin Skin Exam: Dry, Normal Color, Warm Assessment and Plan - Assessment and Plan (Free Text) Assessment: 77F w. cholecystitis, s/p lap shanda, POD#3 -Pt is doing well and awaiting placement in sub acute rehab -Pt is clear for D/C from surgical standpoint -Pt is to follow up in 2 weeks -take pain meds as instructed -Activity and diet as tolerated -surgery will signoff, please re-consult if needed -d/w attending [place] PGY3 <Audi Hayward - Last Filed: 09/09/17 14:01> Subjective - Date & Time of Evaluation Time of Evaluation: 13:50 - Subjective Subjective: Patient was seen and examined at the bedside. Agree with resident's note above. Objective - Vital Signs/Intake and Output Vital Signs (last 24 hours): Temp Pulse Resp BP Pulse Ox 97.8 F 99 H 20 111/72 93 L 09/09/17 08:25 09/09/17 08:25 09/09/17 08:25 09/09/17 08:25 09/09/17 08:25 - Medications Medications: Current Medications Albuterol/Ipratropium (Duoneb 3 Mg/0.5 Mg (3 Ml) Ud) 3 ml INH RQ6 [facility] Last Admin: 09/09/17 13:12 Dose: 3 ml Alendronate Sodium (Fosamax) 70 mg PO QWK@0630 [facility] Alprazolam (Xanax) 0.25 mg PO DAILY PRN PRN Reason: Anxiety Stop: 09/13/17 16:19 Amlodipine Besylate (Norvasc) 10 mg PO DAILY@2200 [facility] Atorvastatin Calcium (Lipitor) 10 mg PO HS [facility] Last Admin: 09/08/17 21:42 Dose: 10 mg Enoxaparin Sodium (Lovenox) 40 mg SC DAILY [facility] PRN Reason: Protocol Last Admin: 09/09/17 08:50 Dose: 40 mg Ciprofloxacin (Cipro 400mg/200ml Dsw) 400 mg in 200 mls @ 200 mls/hr IVPB Q12@ 1000,2200 [facility] PRN Reason: Protocol Last Admin: 09/09/17 09:02 Dose: 200 mls/hr Levothyroxine Sodium (Synthroid) 112 mcg PO MoTuWeThFrSa@0630 [facility] Levothyroxine Sodium (Synthroid) 56 mcg PO SUN@0630 [facility] Metoclopramide HCl (Reglan) 10 mg IVP Q6 PRN PRN Reason: Nausea/Vomiting Last Admin: 09/05/17 22:09 Dose: 10 mg Metronidazole (Flagyl) 500 mg PO Q8 [facility] Last Admin: 09/09/17 08:49 Dose: 500 mg Montelukast Sodium (Singulair) 10 mg PO HS [facility] Last Admin: 09/08/17 21:42 Dose: 10 mg Ondansetron HCl (Zofran Inj) 4 mg IVP Q6 PRN PRN Reason: Nausea/Vomiting Last Admin: 09/09/17 10:45 Dose: 4 mg Oxycodone/Acetaminophen (Percocet 5/325 Mg Tab) 1 tab PO Q6 PRN PRN Reason: Pain, moderate (4-7) Stop: 09/11/17 04:42 Last Admin: 09/08/17 22:00 Dose: 1 tab Pantoprazole Sodium (Protonix Ec Tab) 40 mg PO DAILY [facility] Last Admin: 09/09/17 08:36 Dose: 40 mg Potassium Chloride (K-Dur 20 Meq Er Tab) 20 meq PO BID [facility] Last Admin: 09/09/17 08:36 Dose: 20 meq - Labs Labs: 09/09/17 05:30 09/09/17 05:30 PT 10.8 Seconds (9.8-13.1) 09/05/17 12:20 INR 1.0 (0.9-1.2) 09/05/17 12:20 APTT 27.9 Seconds (25.6-37.1) 09/05/17 12:20
[2017-09-09] MEDS: Enoxaparin 40 mg Syringe SC SCH (08:50)
[2017-09-09] MEDS ORDERED: Levothyroxine 112 MCG TAB PO SCH ×2 (09:00→10:00)
[2017-09-09] MEDS: Ciprofloxacin 400mg/200ml D5W 400 MG/200 ML BAG IVPB SCH ×2 (09:02→21:01)
--- NOTE | 2017-09-09 10:29 | CP.PCM.PN ---
Subjective - Date & Time of Evaluation Date of Evaluation: 09/09/17 Time of Evaluation: 10:29 - Subjective Subjective: C/O NAUSEA TODAY MILD ABDOMINAL PAIN Objective - Vital Signs/Intake and Output Vital Signs (last 24 hours): Temp Pulse Resp BP Pulse Ox 97.8 F 99 H 20 111/72 93 L 09/09/17 08:25 09/09/17 08:25 09/09/17 08:25 09/09/17 08:25 09/09/17 08:25 - Medications Medications: Current Medications Albuterol/Ipratropium (Duoneb 3 Mg/0.5 Mg (3 Ml) Ud) 3 ml INH RQ6 [facility] Last Admin: 09/09/17 07:11 Dose: 3 ml Alprazolam (Xanax) 0.25 mg PO DAILY PRN PRN Reason: Anxiety Stop: 09/13/17 16:19 Amlodipine Besylate (Norvasc) 10 mg PO DAILY@2200 [facility] Atorvastatin Calcium (Lipitor) 10 mg PO HS [facility] Last Admin: 09/08/17 21:42 Dose: 10 mg Enoxaparin Sodium (Lovenox) 40 mg SC DAILY [facility] PRN Reason: Protocol Last Admin: 09/09/17 08:50 Dose: 40 mg Ciprofloxacin (Cipro 400mg/200ml Dsw) 400 mg in 200 mls @ 200 mls/hr IVPB Q12@ 1000,2200 [facility] PRN Reason: Protocol Last Admin: 09/09/17 09:02 Dose: 200 mls/hr Levothyroxine Sodium (Synthroid) 112 mcg PO MoTuWeThFrSa@0630 [facility] Levothyroxine Sodium (Synthroid) 56 mcg PO SUN@0630 [facility] Metoclopramide HCl (Reglan) 10 mg IVP Q6 PRN PRN Reason: Nausea/Vomiting Last Admin: 09/05/17 22:09 Dose: 10 mg Metronidazole (Flagyl) 500 mg PO Q8 [facility] Last Admin: 09/09/17 08:49 Dose: 500 mg Montelukast Sodium (Singulair) 10 mg PO HS [facility] Last Admin: 09/08/17 21:42 Dose: 10 mg Ondansetron HCl (Zofran Inj) 4 mg IVP Q6 PRN PRN Reason: Nausea/Vomiting Oxycodone/Acetaminophen (Percocet 5/325 Mg Tab) 1 tab PO Q6 PRN PRN Reason: Pain, moderate (4-7) Stop: 09/11/17 04:42 Last Admin: 09/08/17 22:00 Dose: 1 tab Pantoprazole Sodium (Protonix Ec Tab) 40 mg PO DAILY [facility] Last Admin: 09/09/17 08:36 Dose: 40 mg Potassium Chloride (K-Dur 20 Meq Er Tab) 20 meq PO BID [facility] Last Admin: 09/09/17 08:36 Dose: 20 meq - Labs Labs: 09/09/17 05:30 09/09/17 05:30 PT 10.8 Seconds (9.8-13.1) 09/05/17 12:20 INR 1.0 (0.9-1.2) 09/05/17 12:20 APTT 27.9 Seconds (25.6-37.1) 09/05/17 12:20 - Constitutional Appears: In Acute Distress - Head Exam Head Exam: ATRAUMATIC, NORMAL INSPECTION, NORMOCEPHALIC - Eye Exam Eye Exam: EOMI, Normal appearance, PERRL Pupil Exam: NORMAL ACCOMODATION, PERRL - ENT Exam ENT Exam: Mucous Membranes Moist, Normal Exam - Neck Exam Neck Exam: Full ROM, Normal Inspection. absent: Lymphadenopathy - Respiratory Exam Respiratory Exam: Clear to Ausculation Bilateral, NORMAL BREATHING PATTERN - Cardiovascular Exam Cardiovascular Exam: REGULAR RHYTHM, +S1, +S2. absent: Murmur - GI/Abdominal Exam GI & Abdominal Exam: Soft, Tenderness, Normal Bowel Sounds - Rectal Exam Rectal Exam: NORMAL INSPECTION - Extremities Exam Extremities Exam: Full ROM, Normal Capillary Refill, Normal Inspection. absent : Joint Swelling, Pedal Edema - Back Exam Back Exam: NORMAL INSPECTION - Neurological Exam Neurological Exam: Alert, Awake, CN II-XII Intact, Normal Gait, Oriented x3 - Psychiatric Exam Psychiatric exam: Normal Affect, Normal Mood - Skin Skin Exam: Dry, Intact, Normal Color, Warm Assessment and Plan - Assessment and Plan (Free Text) Assessment: S/P CHOLECYSTECTOMY NAUSEA DECONDITIONING Plan: ZOFRAN,PRN OIL FIELD CASER FOR TCU PLACEMENT
[2017-09-10] MEDS: Albuterol-Ipratrop 3 mg / 0.5 (3 ml) UD INH SCH ×3 (01:00→13:35)
[2017-09-10 06:17] LABS: ALKALINE PHOSPHATASE 96 U/L (38-126); ALT/SGPT 31 U/L (9-52); AST/SGOT 20 U/L (14-36); BILIRUBIN,TOTAL 0.5 mg/dl (0.2-1.3); BLOOD UREA NITROGEN 11 mg/dl (7-17); CALCIUM 8.6 mg/dL (8.4-10.2); CARBON DIOXIDE 24 mmol/L (22-30); CHLORIDE 107 mmol/L (98-107); GFR AFRICAN-AMERICAN > 60; GLUCOSE,RANDOM 101 mg/dL (65-105); POTASSIUM 3.6 MMOL/L (3.6-5.0); SODIUM 139 mmol/l (132-148); TOTAL PROTEIN 6.4 G/DL (6.3-8.2)
[2017-09-10 06:20] LABS: BASO # 0.1 K/uL (0.0-0.2); BASO % 0.6 % (0.0-2.0); EOS # 0.1 K/uL (0.0-0.7); EOS % 1.5 % (0.0-4.0); HEMATOCRIT 35.7 % (34.0-47.0); LYMPH # 1.2 K/uL (1.0-4.3); LYMPH % 12.5 % (20.0-40.0); MEAN CELL VOLUME 89.1 fl (81.0-99.0); MEAN CORPUSCULAR HGB CONC 33.7 g/dL (33.0-37.0); MEAN PLATELET VOLUME 8.1 fl (7.2-11.7); MONO # 0.9 K/uL (0.0-0.8); MONO % 9.4 % (0.0-10.0); NEUT # 7.6 K/uL (1.8-7.0); RED CELL DISTRIBUTION WIDTH 13.9 % (11.5-14.5); WHITE BLOOD COUNT 9.9 K/uL (4.8-10.8)
[2017-09-10] MEDS ORDERED: Levothyroxine 112 MCG TAB PO SCH (06:30)
[2017-09-10] MEDS ORDERED: ALENDRONATE 70 MG TAB PO SCH (06:30)
[2017-09-10 08:07] VITALS: TEMP 98.2
[2017-09-10] MEDS: Potassium Chloride 20 mEq ER Tab PO SCH (08:28)
[2017-09-10] MEDS: Enoxaparin 40 mg Syringe SC SCH (08:29)
[2017-09-10] MEDS: Pantoprazole 40 mg EC Tab PO SCH (08:29)
--- NOTE | 2017-09-10 09:05 | CP.PCM.DIS ---
Provider - Provider Date of Admission: 09/05/17 16:22 Attending physician: Conner Jurado MD Time Spent in preparation of Discharge (in minutes): 30 Diagnosis - Discharge Diagnosis (1) Cholecystitis Status: Acute (2) Acute bronchitis with chronic obstructive pulmonary disease (COPD) Status: Acute (3) Anxiety Status: Acute (4) CHF (congestive heart failure) Status: Acute (5) Hypokalemia Status: Acute (6) Hypothyroid Status: Acute (7) UTI (urinary tract infection) Status: Acute (8) Physical deconditioning Status: Acute Hospital Course - Lab Results Lab Results: Micro Results 09/05/17 13:44 Blood-Venous Blood Culture - Preliminary NO GROWTH AFTER 4 DAYS 09/05/17 12:40 Blood-Venous Blood Culture - Preliminary NO GROWTH AFTER 4 DAYS 09/05/17 13:52 Urine,Random Urine Culture - Final Escherichia Coli Most Recent Lab Values WBC 9.9 K/uL (4.8-10.8) 09/10/17 05:20 RBC 4.01 Mil/uL (3.80-5.20) 09/10/17 05:20 Hgb 12.0 g/dL (12.0-16.0) 09/10/17 05:20 Hct 35.7 % (34.0-47.0) 09/10/17 05:20 MCV 89.1 fl (81.0-99.0) 09/10/17 05:20 MCH 30.0 pg (27.0-31.0) 09/10/17 05:20 MCHC 33.7 g/dL (33.0-37.0) 09/10/17 05:20 RDW 13.9 % (11.5-14.5) 09/10/17 05:20 Plt Count 205 K/uL (130-400) 09/10/17 05:20 MPV 8.1 fl (7.2-11.7) 09/10/17 05:20 Neut % (Auto) 76.0 % (50.0-75.0) H 09/10/17 05:20 Lymph % (Auto) 12.5 % (20.0-40.0) L 09/10/17 05:20 [place] % (Auto) 9.4 % (0.0-10.0) 09/10/17 05:20 Eos % (Auto) 1.5 % (0.0-4.0) 09/10/17 05:20 Baso % (Auto) 0.6 % (0.0-2.0) 09/10/17 05:20 Neut # 7.6 K/uL (1.8-7.0) H 09/10/17 05:20 Lymph # 1.2 K/uL (1.0-4.3) 09/10/17 05:20 [place] # 0.9 K/uL (0.0-0.8) H 09/10/17 05:20 Eos # 0.1 K/uL (0.0-0.7) 09/10/17 05:20 Baso # 0.1 K/uL (0.0-0.2) 09/10/17 05:20 Neutrophils % (Manual) 92 % (42-75) H 09/05/17 12:20 Lymphocytes % (Manual) 6 % (20-50) L 09/05/17 12:20 Monocytes % (Manual) 2 % (0-10) 09/05/17 12:20 Platelet Estimate Normal (NORMAL) 09/05/17 12:20 RBC Morphology Normal (NORMAL) 09/05/17 12:20 PT 10.8 Seconds (9.8-13.1) 09/05/17 12:20 INR 1.0 (0.9-1.2) 09/05/17 12:20 APTT 27.9 Seconds (25.6-37.1) 09/05/17 12:20 Sodium 139 mmol/l (132-148) 09/10/17 05:20 Potassium 3.6 MMOL/L (3.6-5.0) 09/10/17 05:20 Chloride 107 mmol/L (98-107) 09/10/17 05:20 Carbon Dioxide 24 mmol/L (22-30) 09/10/17 05:20 Anion Gap 12 (10-20) 09/10/17 05:20 BUN 11 mg/dl (7-17) 09/10/17 05:20 Creatinine 0.8 mg/dL (0.7-1.2) 09/10/17 05:20 Est GFR ( Amer) > 60 09/10/17 05:20 Est GFR (Non-Af Amer) > 60 09/10/17 05:20 POC Glucose (mg/dL) 140 mg/dL (65-110) H 09/05/17 10:49 Random Glucose 101 mg/dL (65-105) 09/10/17 05:20 Lactic Acid 2.1 MMOL/L (0.7-2.1) 09/05/17 12:20 Calcium 8.6 mg/dL (8.4-10.2) 09/10/17 05:20 Total Bilirubin 0.5 mg/dl (0.2-1.3) 09/10/17 05:20 AST 20 U/L (14-36) 09/10/17 05:20 ALT 31 U/L (9-52) 09/10/17 05:20 Alkaline Phosphatase 96 U/L (38-126) 09/10/17 05:20 Total Protein 6.4 G/DL (6.3-8.2) 09/10/17 05:20 Albumin 3.2 g/dL (3.5-5.0) L 09/10/17 05:20 Globulin 3.2 gm/dL (2.2-3.9) 09/10/17 05:20 Albumin/Globulin Ratio 1.0 (1.0-2.1) 09/10/17 05:20 Lipase 35 U/L (23-300) 09/05/17 12:20 Urine Color Yellow (YELLOW) 09/05/17 13:52 Urine Clarity Cloudy (Clear) 09/05/17 13:52 Urine pH 8.0 (5.0-8.0) 09/05/17 13:52 Ur Specific [place] 1.014 (1.003-1.030) 09/05/17 13:52 Urine Protein Negative mg/dL (NEGATIVE) 09/05/17 13:52 Urine Glucose (UA) Neg mg/dL (Normal) 09/05/17 13:52 Urine Ketones Trace mg/dL (NEGATIVE) 09/05/17 13:52 Urine Blood Negative (NEGATIVE) 09/05/17 13:52 Urine Nitrate Negative (NEGATIVE) 09/05/17 13:52 Urine Bilirubin Negative (NEGATIVE) 09/05/17 13:52 Urine Urobilinogen 0.2-1.0 mg/dL (0.2-1.0) 09/05/17 13:52 Ur Leukocyte Esterase Neg [place]/uL (Negative) 09/05/17 13:52 Urine RBC (Auto) 3 /hpf (0-3) 09/05/17 13:52 Urine Microscopic WBC 4 /hpf (0-5) 09/05/17 13:52 Ur Squamous Epith Cells 2 /hpf (0-5) 09/05/17 13:52 Urine Bacteria Few (<OCC) H 09/05/17 13:52 Blood Type O NEGATIVE 09/06/17 13:31 Blood Type Confirm O NEGATIVE 09/06/17 13:52 Antibody Screen Negative 09/06/17 13:31 BBK History Checked No verified bt 09/06/17 13:31 - Hospital Course Hospital Course: still feels weak nausea improving still has abdominal pains mild shortness of breath Discharge Exam - Head Exam Head Exam: ATRAUMATIC, NORMAL INSPECTION, NORMOCEPHALIC - Eye Exam Eye Exam: EOMI, Normal appearance, PERRL Pupil Exam: NORMAL ACCOMODATION, PERRL - Respiratory Exam Respiratory Exam: Decreased Breath Sounds - GI/Abdominal Exam GI & Abdominal Exam: Normal Bowel Sounds, Tenderness - Rectal Exam Rectal Exam: NORMAL INSPECTION - Neurological Exam Neurological exam: Alert, CN II-XII Intact, Normal Gait, Oriented x3, Reflexes Normal - Psychiatric Exam Psychiatric exam: Normal Affect, Normal Mood - Skin Skin Exam: Dry, Intact, Normal Color, Warm Discharge Plan - Follow Up Plan Condition: FAIR Disposition: HOME/ ROUTINE Patient education suggested?: Yes Additional Instructions: will transfer to tcu for continued antibiotic therapy and pt/ot
[2017-09-10] MEDS: Ciprofloxacin 400mg/200ml D5W 400 MG/200 ML BAG IVPB SCH (09:08)
--- NOTE | 2017-09-10 13:12 | CP.PCM.PN ---
Subjective - Date & Time of Evaluation Date of Evaluation: 09/10/17 Time of Evaluation: 08:30 - Subjective Subjective: NO CHEST PAIN OR SOB ABDOMINAL PAIN IS LESS Objective - Vital Signs/Intake and Output Vital Signs (last 24 hours): Temp Pulse Resp BP Pulse Ox 98.2 F 95 H 20 116/76 96 09/10/17 08:06 09/10/17 08:06 09/10/17 08:06 09/10/17 08:06 09/10/17 08:06 - Medications Medications: Current Medications Albuterol/Ipratropium (Duoneb 3 Mg/0.5 Mg (3 Ml) Ud) 3 ml INH RQ6 [facility] Last Admin: 09/10/17 07:29 Dose: 3 ml Alendronate Sodium (Fosamax) 70 mg PO QWK@0630 [facility] Last Admin: 09/10/17 06:09 Dose: 70 mg Alprazolam (Xanax) 0.25 mg PO DAILY PRN PRN Reason: Anxiety Stop: 09/13/17 16:19 Amlodipine Besylate (Norvasc) 10 mg PO DAILY@2200 [facility] Last Admin: 09/09/17 22:04 Dose: 10 mg Atorvastatin Calcium (Lipitor) 10 mg PO HS [facility] Last Admin: 09/09/17 21:02 Dose: 10 mg Enoxaparin Sodium (Lovenox) 40 mg SC DAILY [facility] PRN Reason: Protocol Last Admin: 09/10/17 08:29 Dose: 40 mg Ciprofloxacin (Cipro 400mg/200ml Dsw) 400 mg in 200 mls @ 200 mls/hr IVPB Q12@ 1000,2200 [facility] PRN Reason: Protocol Last Admin: 09/10/17 09:08 Dose: 200 mls/hr Levothyroxine Sodium (Synthroid) 112 mcg PO MoTuWeThFrSa@0630 [facility] Last Admin: 09/10/17 06:08 Dose: 112 mcg Levothyroxine Sodium (Synthroid) 56 mcg PO SUN@0630 [facility] Last Admin: 09/09/17 10:33 Dose: Not Given Metoclopramide HCl (Reglan) 10 mg IVP Q6 PRN PRN Reason: Nausea/Vomiting Last Admin: 09/05/17 22:09 Dose: 10 mg Metronidazole (Flagyl) 500 mg PO Q8 [facility] Last Admin: 09/10/17 08:28 Dose: 500 mg Montelukast Sodium (Singulair) 10 mg PO HS [facility] Last Admin: 09/09/17 21:02 Dose: 10 mg Ondansetron HCl (Zofran Inj) 4 mg IVP Q6 PRN PRN Reason: Nausea/Vomiting Last Admin: 09/09/17 10:45 Dose: 4 mg Oxycodone/Acetaminophen (Percocet 5/325 Mg Tab) 1 tab PO Q6 PRN PRN Reason: Pain, moderate (4-7) Stop: 09/11/17 04:42 Last Admin: 09/08/17 22:00 Dose: 1 tab Pantoprazole Sodium (Protonix Ec Tab) 40 mg PO DAILY [facility] Last Admin: 09/10/17 08:29 Dose: 40 mg Potassium Chloride (K-Dur 20 Meq Er Tab) 20 meq PO BID [facility] Last Admin: 09/10/17 08:28 Dose: 20 meq - Labs Labs: 09/10/17 05:20 09/10/17 05:20 PT 10.8 Seconds (9.8-13.1) 09/05/17 12:20 INR 1.0 (0.9-1.2) 09/05/17 12:20 APTT 27.9 Seconds (25.6-37.1) 09/05/17 12:20 - Respiratory Exam Respiratory Exam: Clear to Ausculation Bilateral - Cardiovascular Exam Cardiovascular Exam: REGULAR RHYTHM, +S1, +S2 - Extremities Exam Extremities Exam: Normal Inspection Assessment and Plan - Assessment and Plan (Free Text) Assessment: S/P LAP TRA FOR ACUTE CHOLECYSTITIS HYPERTENSION HYPERLIPIDEMIA Plan: CONTINUE ATORVASTATIN, AMLODIPINE, ANTIBIOTICS, PAIN MEDS FOR DISCHARGE TO TCU
[2017-09-10 15:12] VITALS: BP 120/75; PULSE 96; RESP 19; O2SAT 93
== END 2017-09-10 15:50 | DRG 418 ==
LOC: H.ER 10:33 → H.ERHOLD 16:22 → H.MEDSURG1 17:40
PROVIDERS: ADMIT Internal Medicine Pulmonary Disease; ATTEND Internal Medicine Pulmonary Disease
PROC: 0FT44ZZ Resection of Gallbladder, Percutaneous Endoscopic Approach (ICD-10-PCS; principal; 2017-09-06 12:00)
DX: K81.0 Acute cholecystitis (principal); I50.32 Chronic diastolic (congestive) heart failure; I11.0 Hypertensive heart disease with heart failure; N39.0 Urinary tract infection, site not specified; J44.0 Chronic obstructive pulmonary disease with (acute) lower respiratory infection; E87.6 Hypokalemia; I71.4 Abdominal aortic aneurysm, without rupture; B96.20 Unspecified Escherichia coli [E. coli] as the cause of diseases classified elsewhere; J20.9 Acute bronchitis, unspecified; E78.5 Hyperlipidemia, unspecified; E03.9 Hypothyroidism, unspecified; D72.829 Elevated white blood cell count, unspecified; R00.0 Tachycardia, unspecified; F41.9 Anxiety disorder, unspecified; Z88.0 Allergy status to penicillin; Z87.891 Personal history of nicotine dependence; Z87.01 Personal history of pneumonia (recurrent)

== ENCOUNTER 2018-07-09 13:11 | Inpatient (IN) | payer MEDICARE, BC ==
[2018-07-09 13:11] VITALS: BMI 33.5
[2018-07-09] MEDS ORDERED: Albuterol 0.083% Inhal Sol (2.5 mg/3 mL) UD INH STA (13:37)
[2018-07-09] MEDS ORDERED: Ipratropium 0.02% Inhal Soln (0.5 mg/2.5 ml) UD IH STA (13:38)
[2018-07-09] MEDS ORDERED: Magnesium Sulfate 2 GM in Sodium Chloride 0.9% 100 ML IVPB ONE (13:39)
[2018-07-09] MEDS ORDERED: Magnesium Sulfate 1 GM in Dextrose 5% In Water 100 ML IM SCH (13:45)
[2018-07-09] MEDS ORDERED: Albuterol-Ipratrop 3 mg / 0.5 (3 ml) UD INH STA (13:46)
[2018-07-09] MEDS ORDERED: Albuterol-Ipratrop 3 mg / 0.5 (3 ml) UD ONE (13:51)
[2018-07-09 14:05] LABS: ABG ALLEN TEST YES; ARTERIAL BLOOD GAS HCO3 25.4 mmol/L (21-28); ARTERIAL BLOOD GAS HEMOGLOBIN 15.3 g/dL (11.7-17.4); ARTERIAL BLOOD GAS O2 CAPACITY 20.7 mL/dL (16-24); ARTERIAL BLOOD GAS O2 CONTENT 20.9 ML/dL (15-23); ARTERIAL BLOOD GAS O2 SAT 101.1 % (95-98); ARTERIAL BLOOD GAS PCO2 18 mm/Hg (35-45); ARTERIAL BLOOD GAS PH 7.63 (7.35-7.45); ARTERIAL BLOOD GAS PO2 136 mm/Hg (80-100); ARTERIAL BLOOD GAS TCO2 19.5 mmol/L (22-28)
[2018-07-09] MEDS: Magnesium Sulfate 1 GM in Dextrose 5% In Water 100 ML IVPB SCH ×2 (14:22→14:58)
[2018-07-09 14:37] LABS: BASO # 0.1 K/uL (0.0-0.2); BASO % 0.5 % (0.0-2.0); EOS # 0.2 K/uL (0.0-0.7); EOS % 1.6 % (0.0-4.0); HEMOGLOBIN 15.4 g/dL (12.0-16.0); LYMPH # 0.8 K/uL (1.0-4.3); LYMPH % 7.1 % (20.0-40.0); MEAN CELL VOLUME 88.4 fl (81.0-99.0); MEAN CORPUSCULAR HEMOGLOBIN 30.6 pg (27.0-31.0); MEAN CORPUSCULAR HGB CONC 34.7 g/dL (33.0-37.0); MEAN PLATELET VOLUME 8.8 fl (7.2-11.7); MONO # 0.7 K/uL (0.0-0.8); MONO % 6.6 % (0.0-10.0); NEUT # 9.1 K/uL (1.8-7.0); NEUT % 84.2 % (50.0-75.0); NRBC % 0.3 % (0.0-0.0); PLATELET COUNT 245 K/uL (130-400); RBC 5.03 Mil/uL (3.80-5.20); RED CELL DISTRIBUTION WIDTH 14.6 % (11.5-14.5); WHITE BLOOD COUNT 10.8 K/uL (4.8-10.8)
[2018-07-09 14:51] LABS: CALCIUM 9.7 mg/dL (8.4-10.2); GFR NON-AFRICAN AMERICAN 54
--- NOTE | 2018-07-09 14:52 | RAD ---
Date of service: 07/09/2018 HISTORY: possible admission COMPARISON: 11/01/2020 FINDINGS: LUNGS: No active pulmonary disease. PLEURA: No significant pleural effusion identified, no pneumothorax apparent. CARDIOVASCULAR: Normal. OSSEOUS STRUCTURES: No significant abnormalities. VISUALIZED UPPER ABDOMEN: Normal. OTHER FINDINGS: None. IMPRESSION: No active disease.
[2018-07-09 15:07] LABS: B-TYPE NATRIURETIC PEPTIDE 187 pg/ml (0-900)
--- NOTE | 2018-07-09 15:07 | ED PDOC ---
HPI: SOB/CHF/COPD Time Seen by Provider: 07/09/18 13:22 Chief Complaint (Nursing): Shortness Of Breath Chief Complaint (Provider): Shortness of Breath History Per: Patient History/Exam Limitations: no limitations Onset/Duration Of Symptoms: Days Current Symptoms Are (Timing): Still Present Associated Symptoms: Anxiety Additional Complaint(s): 77 year old female with a past medical history of COPD presents to the ED for an evaluation of worsening shortness of breath onset for last few days. Patient went to PMD and was advised to go to the ED. She took her nebulizer treatments without any relief and one treatment at the PMDs office with mild improvement. Patient is repeating questions and seems confused. Denies chest pain, nausea, vomiting, leg pain or swelling or any other complaints. PMD: Conner Jurado I Past Medical History Reviewed: Historical Data, Nursing Documentation, Vital Signs Vital Signs: Last Vital Signs Temp 98.4 F 07/10/18 19:24 Pulse 100 H 07/10/18 20:36 Resp 20 07/10/18 19:24 BP 125/82 07/10/18 19:24 Pulse Ox 99 07/10/18 19:24 - Medical History PMH: Anxiety (denies taking xanax home med), CHF, COPD, Emphysema, Fractures (R ankle fx), HTN, Hypercholesterolemia, Hyperthyroidism, Hypothyroidism, Pneumonia Denies: HIV, Chronic Kidney Disease - Surgical History Surgical History: Cholecystectomy, Endoscopy, Tonsillectomy - Family History Family History: States: Hypertension - Home Medications Home Medications: Ambulatory Orders Medication Instructions Recorded ALPRAZolam [Xanax] 0.25 mg PO DAILY PRN 09/05/17 Albuterol 0.083% [Albuterol 0.083% 3 ml IH Q8H PRN 09/05/17 Inhal [place] (2.5 mg/3 ml) UD] Alendronate Sodium [Alendronate 35 mg PO SUN 09/05/17 (Fosamax)] Atorvastatin [Lipitor] 10 mg PO HS 09/05/17 Cholecalciferol [Vitamin D 1000 IU] 1,000 unit PO DAILY 09/05/17 Levothyroxine [Synthroid] 56 mcg PO SUN 09/05/17 Levothyroxine [Synthroid] 112 mcg PO [id number] 09/05/17 Omeprazole 20 mg PO DAILY 09/05/17 amLODIPine [Norvasc] 10 mg PO DAILY 09/05/17 - Allergies Allergies/Adverse Reactions: Allergies Allergy/AdvReac Type Severity Reaction Status Date / Time Penicillins Allergy Mild RASH Verified 07/09/18 13:13 Review of Systems ROS Statement: Except As Marked, All Systems Reviewed And Found Negative Cardiovascular: Negative for: Chest Pain Respiratory: Positive for: Shortness of Breath Gastrointestinal: Negative for: Nausea, Vomiting Musculoskeletal: Negative for: Leg Pain Psych: Positive for: Anxiety Physical Exam - Reviewed Nursing Documentation Reviewed: Yes Vital Signs Reviewed: Yes - Physical Exam Appears: Positive for: No Acute Distress, Uncomfortable Head Exam: Positive for: ATRAUMATIC, NORMAL INSPECTION, NORMOCEPHALIC Skin: Positive for: Normal Color, Warm, Dry Eye Exam: Positive for: Normal appearance ENT: Positive for: Normal ENT Inspection (trachea midline no JVD) Neck: Positive for: Normal Cardiovascular/Chest: Positive for: Regular Rate, Rhythm. Negative for: Murmur Respiratory: Positive for: Wheezing (bilateral). Negative for: Rales, Rhonchi Gastrointestinal/Abdominal: Positive for: Soft. Negative for: Tenderness Back: Positive for: Normal Inspection Extremity: Positive for: Other (severe clubbing to fingers). Negative for: Calf Tenderness, Swelling Neurologic/Psych: Positive for: Alert, Oriented (x3), Mood/Affect (anxious during exam and shaking. Not shaking and calm when no one is in the room ) - Laboratory Results Result Diagrams: 07/10/18 04:20 07/10/18 04:20 - ECG O2 Sat by Pulse Oximetry: 100 (RA) Pulse Ox Interpretation: Normal Medical Decision Making Medical Decision Making: Time: 1334 Initial Impression: COPD exacerbation r/o ACS Initial Plan: --Atrial Blood Gas --EKG --BNP --BMP --Troponin --CBC w/ Differential --Albuterol 0.083% 2.5mg --Atrovent 0.5mg --Duoneb 3mg/0.5mg (3ml) --Magnesium Sulfate 2gm Sodium Chloride 0.9% 100ml --Magnesium Sulfate 1gm Dextrose 5% in water 100ml --SOLU-Medrol 125mg --Mail Handler Assistant --Nebulizer Treatment [RT] --Peak Flow Pre/Post TX --Reevaluation Consider BiPAP if no improvement with nebulizer treatment. EKG: sinus tachycardia CXR was discussed with PMD Time: 1450 HISTORY: possible admission COMPARISON: 11/01/2020 FINDINGS: LUNGS: No active pulmonary disease. PLEURA: No significant pleural effusion identified, no pneumothorax apparent. CARDIOVASCULAR: Normal. OSSEOUS STRUCTURES: No significant abnormalities. VISUALIZED UPPER ABDOMEN: Normal. OTHER FINDINGS: None. IMPRESSION: No active disease. Scribe Attestation: Documented by Livia Holguin, acting as a scribe for Melly Jensen MD Provider Scribe Attestation: All medical record entries made by the Scribe were at my direction and personally dictated by me. I have reviewed the chart and agree that the record accurately reflects my personal performance of the history, physical exam, medical decision making, and the department course for this patient. I have also personally directed, reviewed, and agree with the discharge instructions and disposition. spoke with PMD Dr. Whittington regarding the patient's COPD exacerbation and pt will be admitted. Pt with Alkalosis on ABG. Pt with improved vitals with duonebs, magnesium, and solumendrol therefore BiPAP was not required. Pt to be started on azithromycin. Pt informed of status. Per patient request, her housing facility ([facility] [phone]) was contacted. Disposition - Clinical Impression Clinical Impression: Chr obstructive pulmonary disease w/ acute lower respiratory infxn - Patient ED Disposition Is Patient to be Admitted: Yes - Disposition Disposition Time: 15:58 Condition: GUARDED
[2018-07-09 15:08] LABS: BLOOD UREA NITROGEN 16 mg/dl (7-17)
[2018-07-09 16:31] LABS: BASOPHIL 1 % (0-2); EOSINOPHIL 1 % (0-7); HYPOCHROMIC SLIGHT; LYMPHOCYTE 8 % (20-50); MONOCYTE 3 % (0-10); NEUTROPHIL 87 % (42-75); PLATELET ESTIMATE NORMAL (NORMAL); TOTAL CELLS COUNTED 100; TOXIC GRANULATION PRESENT
--- NOTE | 2018-07-09 18:37 | CARD ---
APPROVED REPORT Date of service: 07/09/2018 EKG Measurement Heart [id number] <Conclusion> Sinus tachycardia Nonspecific ST abnormality Abnormal ECG
[2018-07-09] MEDS ORDERED: Promethazine 12.5 mg/10 ml Syrup PO PRN (20:55)
[2018-07-10] MEDS: Albuterol-Ipratrop 3 mg / 0.5 (3 ml) UD INH SCH ×5 (01:03→19:36)
[2018-07-10] MEDS: Levothyroxine 112 MCG TAB PO SCH (05:34)
[2018-07-10 05:45] LABS: ABG ALLEN TEST YES; ARTERIAL BLOOD GAS HCO3 22.9 mmol/L (21-28); ARTERIAL BLOOD GAS HEMOGLOBIN 15.3 g/dL (11.7-17.4); ARTERIAL BLOOD GAS O2 CAPACITY 20.9 mL/dL (16-24); ARTERIAL BLOOD GAS O2 CONTENT 20.8 ML/dL (15-23); ARTERIAL BLOOD GAS O2 SAT 99.4 % (95-98); ARTERIAL BLOOD GAS PCO2 28 mm/Hg (35-45); ARTERIAL BLOOD GAS PH 7.46 (7.35-7.45); ARTERIAL BLOOD GAS PO2 107 mm/Hg (80-100); ARTERIAL BLOOD GAS TCO2 20.8 mmol/L (22-28)
[2018-07-10 05:52] LABS: BLOOD UREA NITROGEN 19 mg/dl (7-17); CALCIUM 9.2 mg/dL (8.4-10.2); GFR NON-AFRICAN AMERICAN 54
[2018-07-10 06:23] LABS: HEMOGLOBIN 14.8 g/dL (12.0-16.0); MEAN CELL VOLUME 88.3 fl (81.0-99.0); MEAN CORPUSCULAR HEMOGLOBIN 30.4 pg (27.0-31.0); MEAN CORPUSCULAR HGB CONC 34.4 g/dL (33.0-37.0); RBC 4.89 Mil/uL (3.80-5.20); RED CELL DISTRIBUTION WIDTH 14.7 % (11.5-14.5); WHITE BLOOD COUNT 10.1 K/uL (4.8-10.8)
[2018-07-10] MEDS: Enoxaparin 40 mg Syringe SC SCH (08:40)
[2018-07-10] MEDS: Cholecalciferol 1,000 INTLU TAB PO SCH (08:41)
[2018-07-10] MEDS: Pantoprazole 40 mg EC Tab PO SCH (08:41)
--- NOTE | 2018-07-10 09:15 | CP.PCM.HP ---
History of Present Illness - History of Present Illness History of Present Illness: 77 YR OLD FEMALE ADMITTED TO TELEMETRY BECAUSE OF SEVERE SHORTNESS OF BREATH, EXERCISE INTOLERANCE,COUGH AND CHEST TIGHTNESS X SEVERAL DAYS.PT HAS A HISTORY OF SEVERE COPD AND HAS BEEN NON-COMPLIANT TO MEDS AND THERAPY. HISTORY OF FORMER CIGARETTE SMOKING,HYPOTHYROIDISM AND HYPERTENSION Present on Admission - Present on Admission Any Indicators Present on Admission: Yes Past Patient History - Past Medical History & Family History Past Medical History?: Yes - Past Social History Smoking Status: Former Smoker - CARDIAC Hx Cardiac Disorders: Yes Hx Congestive Heart Failure: Yes Hx Hypercholesterolemia: Yes Hx Hypertension: Yes - PULMONARY Hx Respiratory Disorders: Yes Hx Asthma: Yes Hx Chronic Obstructive Pulmonary Disease (COPD): Yes Hx Emphysema: Yes Hx Pneumonia: Yes - NEUROLOGICAL Hx Neurological Disorder: No - HEENT Hx HEENT Problems: Yes Other/Comment: Uses eyeglasses - RENAL Hx Chronic Kidney Disease: No - ENDOCRINE/METABOLIC Hx Endocrine Disorders: Yes Hx Hypothyroidism: Yes - HEMATOLOGICAL/ONCOLOGICAL Hx Blood Disorders: No Hx Human Immunodeficiency Virus (HIV): No - INTEGUMENTARY Hx Dermatological Problems: No - MUSCULOSKELETAL/RHEUMATOLOGICAL Hx Musculoskeletal Disorders: Yes Hx Falls: No Hx Fractures: Yes (R ankle fx) - GASTROINTESTINAL Hx Gastrointestinal Disorders: No - GENITOURINARY/GYNECOLOGICAL Hx Genitourinary Disorders: No - PSYCHIATRIC Hx Psychophysiologic Disorder: Yes Hx Anxiety: Yes (denies taking xanax home med) Hx Substance Use: No - SURGICAL HISTORY Hx Surgeries: Yes Hx Cholecystectomy: Yes Hx Tonsillectomy: Yes Other/Comment: R wrist sx - ANESTHESIA Hx Anesthesia: Yes Hx Anesthesia Reactions: No Hx Malignant Hyperthermia: No Meds Allergies/Adverse Reactions: Allergies Allergy/AdvReac Type Severity Reaction Status Date / Time Penicillins Allergy Mild RASH Verified 07/09/18 13:13 Physical Exam - Constitutional Appears: In Acute Distress, Older Than Stated Age, Chronically Ill - Head Exam Head Exam: ATRAUMATIC, NORMAL INSPECTION, NORMOCEPHALIC - Eye Exam Eye Exam: EOMI, Normal appearance, PERRL Pupil Exam: NORMAL ACCOMODATION, PERRL - ENT Exam ENT Exam: Mucous Membranes Moist, Normal Exam - Neck Exam Neck exam: Positive for: Normal Inspection - Respiratory Exam Respiratory Exam: Decreased Breath Sounds, Prolonged Expiratory Phase, Rales, Wheezes, Respiratory Distress - Cardiovascular Exam Cardiovascular Exam: REGULAR RHYTHM - GI/Abdominal Exam GI & Abdominal Exam: Normal Bowel Sounds, Soft. absent: Tenderness - Rectal Exam Rectal Exam: NORMAL INSPECTION - Extremities Exam Extremities exam: Positive for: normal inspection - Back Exam Back exam: NORMAL INSPECTION - Neurological Exam Neurological exam: Alert, CN II-XII Intact, Normal Gait, Oriented x3, Reflexes Normal - Psychiatric Exam Psychiatric exam: Normal Affect, Normal Mood - Skin Skin Exam: Dry, Intact, Normal Color, Warm Results - Vital Signs Recent Vital Signs: Last Vital Signs Temp 97.9 F 07/10/18 07:59 Pulse 98 H 07/10/18 08:40 Resp 18 07/10/18 07:59 BP 128/79 07/10/18 08:40 Pulse Ox 97 07/10/18 07:59 - Labs Result Diagrams: 07/10/18 04:20 07/10/18 04:20 Labs: Laboratory Results - last 24 hr 07/09/18 07/09/18 07/09/18 13:48 14:15 14:15 WBC 10.8 RBC 5.03 Hgb 15.4 D Hct 44.4 MCV 88.4 MCH 30.6 MCHC 34.7 RDW 14.6 H Plt Count 245 MPV 8.8 Neut % (Auto) 84.2 H Lymph % (Auto) 7.1 L [place] % (Auto) 6.6 Eos % (Auto) 1.6 Baso % (Auto) 0.5 Neut # (Auto) 9.1 H Lymph # (Auto) 0.8 L [place] # (Auto) 0.7 Eos # (Auto) 0.2 Baso # (Auto) 0.1 Neutrophils % (Manual) 87 H Lymphocytes % (Manual) 8 L Monocytes % (Manual) 3 Eosinophils % (Manual) 1 Basophils % (Manual) 1 Toxic Granulation Present Platelet Estimate Normal Hypochromasia (manual) Slight pCO2 18 L* pO2 136 H HCO3 25.4 ABG pH 7.63 H* ABG Total CO2 19.5 L ABG O2 Saturation 101.1 H ABG O2 Content 20.9 ABG Base Excess 0.7 ABG Hemoglobin 15.3 ABG Carboxyhemoglobin 2.7 H POC ABG HHb (Measured) -1.0 L ABG Methemoglobin 2.2 ABG O2 Capacity 20.7 Tez Test Yes A-a O2 Difference 41.0 Hgb O2 Saturation 96.1 Vent Mode 2lnc FiO2 28.0 Crit Value Called To doris Jensen md Crit Value Called By Jerilyn basurto Crit Value Read Back Y Blood Gas Notified Time 1405 Sodium 142 Potassium 4.4 Chloride 109 H Carbon Dioxide 20 L Anion Gap 17 BUN 16 Creatinine 1.0 Est GFR ( Amer) > 60 Est GFR (Non-Af Amer) 54 Random Glucose 102 Calcium 9.7 Troponin I < 0.0120 NT-Pro-B Natriuret Pep 187 07/10/18 07/10/18 07/10/18 04:20 04:20 05:18 WBC 10.1 RBC 4.89 Hgb 14.8 Hct 43.1 MCV 88.3 MCH 30.4 MCHC 34.4 RDW 14.7 H Plt Count 123 L D MPV Neut % (Auto) Lymph % (Auto) [place] % (Auto) Eos % (Auto) Baso % (Auto) Neut # (Auto) Lymph # (Auto) [place] # (Auto) Eos # (Auto) Baso # (Auto) Neutrophils % (Manual) Lymphocytes % (Manual) Monocytes % (Manual) Eosinophils % (Manual) Basophils % (Manual) Toxic Granulation Platelet Estimate Hypochromasia (manual) pCO2 28 L pO2 107 H HCO3 22.9 ABG pH 7.46 H ABG Total CO2 20.8 L ABG O2 Saturation 99.4 H ABG O2 Content 20.8 ABG Base Excess -2.5 L ABG Hemoglobin 15.3 ABG Carboxyhemoglobin 1.6 H POC ABG HHb (Measured) 0.6 ABG Methemoglobin 1.5 ABG O2 Capacity 20.9 Tez Test Yes A-a O2 Difference 8.0 Hgb O2 Saturation 96.4 Vent Mode Room air FiO2 21.0 Crit Value Called To Crit Value Called By Crit Value Read Back Blood Gas Notified Time Sodium 141 Potassium 4.6 Chloride 108 H Carbon Dioxide 21 L Anion Gap 17 BUN 19 H Creatinine 1.0 Est GFR ( Amer) > 60 Est GFR (Non-Af Amer) 54 Random Glucose 166 H Calcium 9.2 Troponin I NT-Pro-B Natriuret Pep Assessment & Plan - Assessment and Plan (Free Text) Assessment: ACUTE EXAC OF COPD HTN HYPOTHYROIDISM NON-COMPLIANCE Plan: CONTINUE RX ORDERED - Date & Time Date: 07/10/18 Time: :18
--- NOTE | 2018-07-10 13:24 | CT ---
Date of service: 07/10/2018 PROCEDURE: CT NECK WITHOUT CONTRAST HISTORY: neck pain COMPARISON: None available. TECHNIQUE: CT of the neck without intravenous contrast. Coronal and sagittal reformats generated. Radiation dose: DLP 310.29 mGy-cm This CT exam was performed using one or more of the following dose reduction techniques: Automated exposure control, adjustment of the mA and/or kV according to patient size, and/or use of iterative reconstruction technique. FINDINGS: NASOPHARYNX: Within normal limits. SUPRAHYOID NECK: There is an apparent 1.2 x 0.7 cm polypoid soft tissue in the right anterior superior pre-epiglottic space. There is no bulky mass in the oropharynx, oral cavity, parapharyngeal space and retropharyngeal space. INFRAHYOID NECK: Unremarkable larynx, hypopharynx, and supraglottic space. Vocal cords intact. MASS: None. GLANDS: Parotid and submandibular glands unremarkable. Normal size thyroid gland, without nodule. LYMPH NODES: Normal. No lymphadenopathy. CERVICAL SPINE: No fracture or focal lesion. Within normal limits for the patient's age. OTHER FINDINGS: Centrilobular emphysema in the lungs. IMPRESSION: 1.2 x 0.7 cm polypoid soft tissue in the right superior pre epiglottic space not completely characterized on this non CT examination. Clinical follow-up, and if clinically indicated endoscopic correlation is advised.
--- NOTE | 2018-07-10 13:29 | CT ---
Date of service: 07/10/2018 PROCEDURE: CT HEAD WITHOUT CONTRAST. HISTORY: Headache COMPARISON: None available. TECHNIQUE: Axial computed tomography images were obtained through the head/brain without intravenous contrast. Radiation dose: Total exam DLP = 937.06 mGy-cm. This CT exam was performed using one or more of the following dose reduction techniques: Automated exposure control, adjustment of the mA and/or kV according to patient size, and/or use of iterative reconstruction technique. FINDINGS: HEMORRHAGE: No intracranial hemorrhage. BRAIN: There are severe chronic microangiopathic changes. There is no mass, mass effect or abnormal extra-axial fluid collection. There is no territorial infarction. The midline sagittal structures are normal. VENTRICLES: There is mild age-related global parenchymal volume loss and proportionate enlargement of the ventricles and cortical sulci. CALVARIUM: The skull base and calvarium are normal. PARANASAL SINUSES: Predominantly clear. MASTOID AIR CELLS: Predominantly clear. OTHER FINDINGS: None. IMPRESSION: No acute intracranial abnormality. Severe chronic microangiopathic changes and mild age-related global parenchymal volume loss.
[2018-07-11] MEDS: Albuterol-Ipratrop 3 mg / 0.5 (3 ml) UD INH SCH ×7 (00:27→23:47)
[2018-07-11] MEDS: Levothyroxine 112 MCG TAB PO SCH (05:45)
--- NOTE | 2018-07-11 08:48 | CP.PCM.PN ---
Subjective - Date & Time of Evaluation Date of Evaluation: 07/11/18 Time of Evaluation: 08:49 - Subjective Subjective: SHORTNESS OF BREATH IMPROVING NO CHEST PAINS +HOARSE COUGH PRESENT BUT DRY Objective - Vital Signs/Intake and Output Vital Signs (last 24 hours): Temp Pulse Resp BP Pulse Ox 97.6 F 105 H 18 127/73 98 07/11/18 07:51 07/11/18 07:51 07/11/18 07:51 07/11/18 07:51 07/11/18 07:51 - Medications Medications: Current Medications Acetaminophen (Tylenol 325mg Tab) 650 mg PO Q4 PRN PRN Reason: Fever > 101.0 Acetaminophen (Tylenol 325mg Tab) 650 mg PO Q4 PRN PRN Reason: Pain, moderate (4-7) Albuterol/Ipratropium (Duoneb 3 Mg/0.5 Mg (3 Ml) Ud) 3 ml INH RQ4 [facility] Last Admin: 07/11/18 07:32 Dose: 3 ml Alprazolam (Xanax) 0.25 mg PO DAILY PRN PRN Reason: Anxiety Stop: 07/16/18 20:48 Amlodipine Besylate (Norvasc) 10 mg PO DAILY [facility] Last Admin: 07/10/18 08:40 Dose: 10 mg Atorvastatin Calcium (Lipitor) 10 mg PO HS [facility] Last Admin: 07/10/18 21:03 Dose: 10 mg Cholecalciferol (Vitamin D) 1,000 intlu PO DAILY [facility] Last Admin: 07/10/18 08:41 Dose: 1,000 intlu Enoxaparin Sodium (Lovenox) 40 mg SC DAILY [facility] PRN Reason: Protocol Last Admin: 07/10/18 08:40 Dose: 40 mg Levothyroxine Sodium (Synthroid) 56 mcg PO SUN@0630 [facility] Levothyroxine Sodium (Synthroid) 112 mcg PO MoTuWeThFrSa@0630 [facility] Last Admin: 07/11/18 05:45 Dose: 112 mcg Methylprednisolone (Solu-Medrol) 60 mg IVP Q8 [facility] Last Admin: 07/11/18 00:15 Dose: 60 mg Pantoprazole Sodium (Protonix Ec Tab) 40 mg PO DAILY [facility] Last Admin: 07/10/18 08:41 Dose: 40 mg Promethazine HCl (Phenergan Syrup) 12.5 mg PO Q6 PRN PRN Reason: Cough Last Admin: 07/10/18 08:41 Dose: 12.5 mg - Labs Labs: 07/10/18 04:20 07/10/18 04:20 - Constitutional Appears: No Acute Distress, Chronically Ill - Head Exam Head Exam: ATRAUMATIC, NORMAL INSPECTION, NORMOCEPHALIC - Eye Exam Eye Exam: EOMI, Normal appearance, PERRL Pupil Exam: NORMAL ACCOMODATION, PERRL - ENT Exam ENT Exam: Mucous Membranes Moist, Normal Exam - Neck Exam Neck Exam: Full ROM, Normal Inspection. absent: Lymphadenopathy - Respiratory Exam Respiratory Exam: Decreased Breath Sounds, Rales, Wheezes, NORMAL BREATHING PATTERN - Cardiovascular Exam Cardiovascular Exam: REGULAR RHYTHM, +S1, +S2. absent: Murmur - GI/Abdominal Exam GI & Abdominal Exam: Soft, Normal Bowel Sounds. absent: Tenderness - Rectal Exam Rectal Exam: NORMAL INSPECTION - Extremities Exam Extremities Exam: Full ROM, Normal Capillary Refill, Normal Inspection. absent : Joint Swelling, Pedal Edema - Back Exam Back Exam: NORMAL INSPECTION - Neurological Exam Neurological Exam: Alert, Awake, CN II-XII Intact, Normal Gait, Oriented x3 - Psychiatric Exam Psychiatric exam: Normal Affect, Normal Mood - Skin Skin Exam: Dry, Intact, Normal Color, Warm Assessment and Plan - Assessment and Plan (Free Text) Assessment: COPD EXAC EPIGLOTIC LESION WITH HOARSENESS HYPOTHYROIDISM HTN Plan: ENT EVALUATION CONTINUE CURRENT RX TRANSITIONAL CARE REFERRAL
[2018-07-11] MEDS: Enoxaparin 40 mg Syringe SC SCH (09:32)
[2018-07-11] MEDS: Pantoprazole 40 mg EC Tab PO SCH (09:33)
[2018-07-11] MEDS: Cholecalciferol 1,000 INTLU TAB PO SCH (09:34)
[2018-07-12] MEDS: Albuterol-Ipratrop 3 mg / 0.5 (3 ml) UD INH SCH ×3 (05:11→11:42)
[2018-07-12] MEDS: Levothyroxine 112 MCG TAB PO SCH (05:32)
[2018-07-12] MEDS: Cholecalciferol 1,000 INTLU TAB PO SCH (09:36)
[2018-07-12] MEDS: Enoxaparin 40 mg Syringe SC SCH (09:36)
[2018-07-12] MEDS: Pantoprazole 40 mg EC Tab PO SCH (09:36)
--- NOTE | 2018-07-12 10:48 | PQF ---
PROVIDER RESPONSE TEXT: NO EVIDENCE OF CHF AT PRESEN HISTORY OF CHF WITH DIASTOLIC DYSFUNCTION IN THE PAST REVIEWER QUERY TEXT: Heart Failure Acuity and Type Congestive Heart Failure is documented in the Medical Record. Please document the type and acuity (in cludes probable or suspected) versus No CHF:history only and not chronic ? Such as: Type: -- Combined systolic and diastolic (heart failure with reduced ejection fraction and diastolic) dysfu nction -- Diastolic (HFpEF) -- Systolic (HFrEF) -- Left heart failure -- Right heart failure -- Right heart failure due to left heart failure -- High output failure -- End stage heart failure -- Other, please specify Acuity: -- Acute -- Chronic -- Acute on chronic -- Other, please specify ProBNP:187 07/09 CXR: Impression: No active disease. H and P: Hx CHF: Yes The patient's Clinical Indicators include: xx Query created by: Aranza Kaur on 07/11/2018 2:07 PM Electronically signed by: Conner Jurado MD 07/12/2018 10:44 AM
--- NOTE | 2018-07-12 11:03 | CP.PCM.DIS ---
Provider - Provider Date of Admission: 07/09/18 15:58 Attending physician: Conner Jurado MD Time Spent in preparation of Discharge (in minutes): 35 Diagnosis - Discharge Diagnosis (1) Anxiety Status: Acute (2) CHF (congestive heart failure) Status: Acute (3) COPD exacerbation Status: Acute (4) Hypertension Status: Acute (5) Hypothyroid Status: Acute (6) Physical deconditioning Status: Acute (7) Swelling, mass, or lump in head and neck Status: Acute Hospital Course - Lab Results Lab Results: Most Recent Lab Values WBC 10.1 K/uL (4.8-10.8) 07/10/18 04:20 RBC 4.89 Mil/uL (3.80-5.20) 07/10/18 04:20 Hgb 14.8 g/dL (12.0-16.0) 07/10/18 04:20 Hct 43.1 % (34.0-47.0) 07/10/18 04:20 MCV 88.3 fl (81.0-99.0) 07/10/18 04:20 MCH 30.4 pg (27.0-31.0) 07/10/18 04:20 MCHC 34.4 g/dL (33.0-37.0) 07/10/18 04:20 RDW 14.7 % (11.5-14.5) H 07/10/18 04:20 Plt Count 123 K/uL (130-400) L D 07/10/18 04:20 MPV 8.8 fl (7.2-11.7) 07/09/18 14:15 Neut % (Auto) 84.2 % (50.0-75.0) H 07/09/18 14:15 Lymph % (Auto) 7.1 % (20.0-40.0) L 07/09/18 14:15 [place] % (Auto) 6.6 % (0.0-10.0) 07/09/18 14:15 Eos % (Auto) 1.6 % (0.0-4.0) 07/09/18 14:15 Baso % (Auto) 0.5 % (0.0-2.0) 07/09/18 14:15 Neut # (Auto) 9.1 K/uL (1.8-7.0) H 07/09/18 14:15 Lymph # (Auto) 0.8 K/uL (1.0-4.3) L 07/09/18 14:15 [place] # (Auto) 0.7 K/uL (0.0-0.8) 07/09/18 14:15 Eos # (Auto) 0.2 K/uL (0.0-0.7) 07/09/18 14:15 Baso # (Auto) 0.1 K/uL (0.0-0.2) 07/09/18 14:15 Neutrophils % (Manual) 87 % (42-75) H 07/09/18 14:15 Lymphocytes % (Manual) 8 % (20-50) L 07/09/18 14:15 Monocytes % (Manual) 3 % (0-10) 07/09/18 14:15 Eosinophils % (Manual) 1 % (0-7) 07/09/18 14:15 Basophils % (Manual) 1 % (0-2) 07/09/18 14:15 Toxic Granulation Present 07/09/18 14:15 Platelet Estimate Normal (NORMAL) 07/09/18 14:15 Hypochromasia (manual) Slight 07/09/18 14:15 pCO2 28 mm/Hg (35-45) L 07/10/18 05:18 pO2 107 mm/Hg (80-100) H 07/10/18 05:18 HCO3 22.9 mmol/L (21-28) 07/10/18 05:18 ABG pH 7.46 (7.35-7.45) H 07/10/18 05:18 ABG Total CO2 20.8 mmol/L (22-28) L 07/10/18 05:18 ABG O2 Saturation 99.4 % (95-98) H 07/10/18 05:18 ABG O2 Content 20.8 ML/dL (15-23) 07/10/18 05:18 ABG Base Excess -2.5 mmol/L (-2.0-3.0) L 07/10/18 05:18 ABG Hemoglobin 15.3 g/dL (11.7-17.4) 07/10/18 05:18 ABG Carboxyhemoglobin 1.6 % (0.5-1.5) H 07/10/18 05:18 POC ABG HHb (Measured) 0.6 % (0.0-5.0) 07/10/18 05:18 ABG Methemoglobin 1.5 % (0.0-3.0) 07/10/18 05:18 ABG O2 Capacity 20.9 mL/dL (16-24) 07/10/18 05:18 Tez Test Yes 07/10/18 05:18 A-a O2 Difference 8.0 mm/Hg 07/10/18 05:18 Hgb O2 Saturation 96.4 % (95.0-98.0) 07/10/18 05:18 Vent Mode Room air 07/10/18 05:18 FiO2 21.0 % 07/10/18 05:18 Crit Value Called To doris Jensen md 07/09/18 13:48 Crit Value Called By Jerilyn basurto 07/09/18 13:48 Crit Value Read Back Y 07/09/18 13:48 Blood Gas Notified Time 1405 07/09/18 13:48 Sodium 141 mmol/l (132-148) 07/10/18 04:20 Potassium 4.6 MMOL/L (3.6-5.0) 07/10/18 04:20 Chloride 108 mmol/L (98-107) H 07/10/18 04:20 Carbon Dioxide 21 mmol/L (22-30) L 07/10/18 04:20 Anion Gap 17 (10-20) 07/10/18 04:20 BUN 19 mg/dl (7-17) H 07/10/18 04:20 Creatinine 1.0 mg/dl (0.7-1.2) 07/10/18 04:20 Est GFR ( Amer) > 60 07/10/18 04:20 Est GFR (Non-Af Amer) 54 07/10/18 04:20 Random Glucose 166 mg/dL (65-105) H 07/10/18 04:20 Calcium 9.2 mg/dL (8.4-10.2) 07/10/18 04:20 Troponin I < 0.0120 ng/mL (0.00-0.120) 07/09/18 14:15 NT-Pro-B Natriuret Pep 187 pg/ml (0-900) 07/09/18 14:15 - Hospital Course Hospital Course: SHORTNESS OF BREATH IMPROVING HOARSENESS PERSISTS NECK PAIN PRESENT Discharge Exam - Head Exam Head Exam: ATRAUMATIC, NORMAL INSPECTION, NORMOCEPHALIC - Eye Exam Eye Exam: EOMI, Normal appearance, PERRL Pupil Exam: NORMAL ACCOMODATION, PERRL - Neck Exam Neck exam: Tenderness - Respiratory Exam Respiratory Exam: Decreased Breath Sounds, Prolonged Expiratory Phase, Wheezes - GI/Abdominal Exam GI & Abdominal Exam: Normal Bowel Sounds - Rectal Exam Rectal Exam: NORMAL INSPECTION - Neurological Exam Neurological exam: Alert, CN II-XII Intact, Normal Gait, Oriented x3, Reflexes Normal - Psychiatric Exam Psychiatric exam: Normal Affect, Normal Mood - Skin Skin Exam: Dry, Intact, Normal Color, Warm Discharge Plan - Follow Up Plan Condition: GUARDED Disposition: HOME/ ROUTINE Patient education suggested?: Yes Instructions: Exacerbation of COPD (DC) Additional Instructions: TRANSFER TO TRANSITIONAL CARE CASE DISCUSSED WITH ENT--DR ALVARES--WORKUP OF UPPER AIRWAY LESION WILL BE DONE OUT PT ONCE PT IS MEDICALLY STABLE THIS WAS EXPLAINED TO THE PT AND SHE UNDERSTANDS Referrals: Conner Jurado MD [Family Provider] -
[2018-07-12 13:20] VITALS: BP 128/68; PULSE 112; RESP 18; TEMP 97; O2SAT 99
== END 2018-07-12 15:14 | DRG 191 ==
LOC: H.ER 13:11 → H.ERHOLD 15:58 → H.TEL 18:50
PROVIDERS: ADMIT Internal Medicine Pulmonary Disease; ATTEND Internal Medicine Pulmonary Disease
PROC: 3E0F73Z Introduction of Anti-inflammatory into Respiratory Tract, Via Natural or Artificial Opening (ICD-10-PCS; principal; 2018-07-09)
DX: J44.1 Chronic obstructive pulmonary disease with (acute) exacerbation (principal); E87.3 Alkalosis; I50.32 Chronic diastolic (congestive) heart failure; I11.0 Hypertensive heart disease with heart failure; E03.9 Hypothyroidism, unspecified; R49.0 Dysphonia; E78.00 Pure hypercholesterolemia, unspecified; F41.9 Anxiety disorder, unspecified; Z91.14 Patient's other noncompliance with medication regimen; Z91.19 Patient's noncompliance with other medical treatment and regimen; Z87.891 Personal history of nicotine dependence; Z87.01 Personal history of pneumonia (recurrent); Z88.0 Allergy status to penicillin; Z79.83 Long term (current) use of bisphosphonates; Z90.49 Acquired absence of other specified parts of digestive tract

== ENCOUNTER 2018-07-12 13:07 | Inpatient (IN) | payer OTHER, BC ==
[2018-07-12 14:19] VITALS: BMI 31.9
[2018-07-12] MEDS ORDERED: Levothyroxine 112 MCG TAB PO SCH (14:30)
[2018-07-12] MEDS: Albuterol-Ipratrop 3 mg / 0.5 (3 ml) UD INH SCH ×3 (15:33→23:30)
[2018-07-12] MEDS: Promethazine 12.5 mg/10 ml Syrup PO PRN (21:59)
[2018-07-13] MEDS: Promethazine 12.5 mg/10 ml Syrup PO PRN ×3 (04:34→22:16)
[2018-07-13] MEDS: Albuterol-Ipratrop 3 mg / 0.5 (3 ml) UD INH SCH ×6 (04:53→23:34)
[2018-07-13] MEDS: Levothyroxine 112 MCG TAB PO SCH (05:59)
[2018-07-13] MEDS: Enoxaparin 40 mg Syringe SC SCH (09:00)
--- NOTE | 2018-07-13 12:56 | CP.PCM.HP ---
History of Present Illness - History of Present Illness History of Present Illness: 77 YR OLD FEMALE ADMITTED TO TCU FOR DECONDITIONING AND COPD EXACERBATION. HX OF COPD--POOR COMPLIANCE TO RX AND FOLLOWUP HX OF HYPOTHYROIDISM,CHRONIC CHF,HTN,ANXIETY HEAD AND NECK LESION Present on Admission - Present on Admission Any Indicators Present on Admission: No Past Patient History - Past Medical History & Family History Past Medical History?: Yes - Past Social History Smoking Status: Former Smoker - CARDIAC Hx Congestive Heart Failure: Yes Hx Hypercholesterolemia: Yes Hx Hypertension: Yes - PULMONARY Hx Chronic Obstructive Pulmonary Disease (COPD): Yes - NEUROLOGICAL Hx Neurological Disorder: No - HEENT Hx HEENT Problems: Yes Other/Comment: Uses eyeglasses - RENAL Hx Chronic Kidney Disease: No - ENDOCRINE/METABOLIC Hx Hypothyroidism: Yes - HEMATOLOGICAL/ONCOLOGICAL Hx Human Immunodeficiency Virus (HIV): No - INTEGUMENTARY Hx Dermatological Problems: No - MUSCULOSKELETAL/RHEUMATOLOGICAL Hx Falls: No Hx Fractures: Yes (R ankle fx) - GASTROINTESTINAL Hx Gastrointestinal Disorders: No - GENITOURINARY/GYNECOLOGICAL Hx Genitourinary Disorders: No - PSYCHIATRIC Hx Anxiety: Yes (denies taking xanax home med) Hx Substance Use: No - SURGICAL HISTORY Hx Cholecystectomy: Yes Hx Tonsillectomy: Yes - ANESTHESIA Hx Anesthesia: Yes Hx Anesthesia Reactions: No Hx Malignant Hyperthermia: No Meds Allergies/Adverse Reactions: Allergies Allergy/AdvReac Type Severity Reaction Status Date / Time Penicillins Allergy Mild RASH Verified 07/12/18 14:18 Physical Exam - Constitutional Appears: Well, Older Than Stated Age, Chronically Ill - Head Exam Head Exam: ATRAUMATIC, NORMAL INSPECTION, NORMOCEPHALIC - Eye Exam Eye Exam: EOMI, Normal appearance, PERRL Pupil Exam: NORMAL ACCOMODATION, PERRL - ENT Exam ENT Exam: Mucous Membranes Moist, Normal Exam Additional comments: HOARSE NECK PAIN - Neck Exam Neck exam: Positive for: Normal Inspection - Respiratory Exam Respiratory Exam: Decreased Breath Sounds, Clear to Auscultation Bilateral, Rales, Wheezes, NORMAL BREATHING PATTERN - Cardiovascular Exam Cardiovascular Exam: REGULAR RHYTHM - GI/Abdominal Exam GI & Abdominal Exam: Normal Bowel Sounds, Soft. absent: Tenderness - Rectal Exam Rectal Exam: NORMAL INSPECTION - Extremities Exam Extremities exam: Positive for: normal inspection - Back Exam Back exam: NORMAL INSPECTION - Neurological Exam Neurological exam: Alert, CN II-XII Intact, Normal Gait, Oriented x3, Reflexes Normal - Psychiatric Exam Psychiatric exam: Normal Affect, Normal Mood - Skin Skin Exam: Dry, Intact, Normal Color, Warm Results - Vital Signs Recent Vital Signs: Last Vital Signs Temp 97.3 F L 07/13/18 09:09 Pulse 109 H 07/13/18 09:09 Resp 20 07/13/18 09:09 BP 119/73 07/13/18 09:09 Pulse Ox 96 07/13/18 09:09 Assessment & Plan - Assessment and Plan (Free Text) Assessment: COPD EXAC HTN HYPOTHYROIDISM VOCAL COR LESION CHRONIC CHF ANXIETY NECK PAIN Plan: CONTINUE CURRENT RX WILL BENEFIT FROM SUBACUTE CARE - Date & Time Date: 07/13/18 Time: 12:58
[2018-07-13] MEDS: Pantoprazole 40 mg EC Tab PO SCH (13:23)
[2018-07-13] MEDS: Cholecalciferol 1,000 INTLU TAB PO SCH (13:29)
[2018-07-13] MEDS: Mycolog II CREAM TOP SCH (17:19)
[2018-07-14] MEDS: Albuterol-Ipratrop 3 mg / 0.5 (3 ml) UD INH SCH ×6 (04:28→23:30)
[2018-07-14] MEDS ORDERED: Levothyroxine 112 MCG TAB PO SCH (06:30)
[2018-07-14] MEDS: Cholecalciferol 1,000 INTLU TAB PO SCH (08:28)
[2018-07-14] MEDS: Pantoprazole 40 mg EC Tab PO SCH (08:28)
[2018-07-14] MEDS: Mycolog II CREAM TOP SCH ×4 (08:29→16:53)
[2018-07-14] MEDS: Enoxaparin 40 mg Syringe SC SCH (08:29)
--- NOTE | 2018-07-14 09:59 | CP.PCM.PN ---
Subjective - Date & Time of Evaluation Date of Evaluation: 07/14/18 Time of Evaluation: 09:59 - Subjective Subjective: COUGH LESS C/O L SIDED NECK PAIN Objective - Vital Signs/Intake and Output Vital Signs (last 24 hours): Temp Pulse Resp BP Pulse Ox 97.7 F 96 H 20 123/74 95 07/14/18 08:36 07/14/18 08:36 07/14/18 08:36 07/14/18 08:36 07/14/18 08:36 - Medications Medications: Current Medications Acetaminophen (Tylenol 325mg Tab) 650 mg PO Q4 PRN PRN Reason: Pain, moderate (4-7) Albuterol/Ipratropium (Duoneb 3 Mg/0.5 Mg (3 Ml) Ud) 3 ml INH RQ4 [facility] Last Admin: 07/14/18 07:01 Dose: 3 ml Alprazolam (Xanax) 0.25 mg PO DAILY PRN PRN Reason: Anxiety Stop: 07/19/18 14:30 Amlodipine Besylate (Norvasc) 10 mg PO DAILY [facility] Last Admin: 07/14/18 08:28 Dose: 10 mg Atorvastatin Calcium (Lipitor) 10 mg PO HS [facility] Last Admin: 07/13/18 22:14 Dose: 10 mg Cholecalciferol (Vitamin D) 1,000 intlu PO DAILY [facility] Last Admin: 07/14/18 08:28 Dose: 1,000 intlu Enoxaparin Sodium (Lovenox) 40 mg SC DAILY [facility] PRN Reason: Protocol Last Admin: 07/14/18 08:29 Dose: 40 mg Levothyroxine Sodium (Synthroid) 56 mcg PO SUN@0630 [facility] Last Admin: 07/14/18 05:42 Dose: 56 mcg Levothyroxine Sodium (Synthroid) 112 mcg PO MoTuWeThFrSa@0630 [facility] Last Admin: 07/13/18 05:59 Dose: 112 mcg Methylprednisolone (Solu-Medrol) 60 mg IVP Q8@0500,1300,2100 [facility] Last Admin: 07/14/18 05:41 Dose: 60 mg Nystatin/Triamcinolone Acetonide (Mycolog Ii) 1 applic TOP TID [facility] Last Admin: 07/14/18 08:35 Dose: Not Given Pantoprazole Sodium (Protonix Ec Tab) 40 mg PO DAILY [facility] Last Admin: 07/14/18 08:28 Dose: 40 mg Promethazine HCl (Phenergan Syrup) 12.5 mg PO Q6 PRN PRN Reason: Cough Last Admin: 07/13/18 22:16 Dose: 12.5 mg - Constitutional Appears: No Acute Distress - Head Exam Head Exam: ATRAUMATIC, NORMAL INSPECTION, NORMOCEPHALIC - Eye Exam Eye Exam: EOMI, Normal appearance, PERRL Pupil Exam: NORMAL ACCOMODATION, PERRL - ENT Exam ENT Exam: Mucous Membranes Moist, Normal Exam - Neck Exam Neck Exam: Full ROM, Normal Inspection. absent: Lymphadenopathy - Respiratory Exam Respiratory Exam: Decreased Breath Sounds, Prolonged Expiratory Phase, Wheezes, NORMAL BREATHING PATTERN - Cardiovascular Exam Cardiovascular Exam: REGULAR RHYTHM, +S1, +S2. absent: Murmur - GI/Abdominal Exam GI & Abdominal Exam: Soft, Normal Bowel Sounds. absent: Tenderness - Rectal Exam Rectal Exam: NORMAL INSPECTION - Extremities Exam Extremities Exam: Full ROM, Normal Capillary Refill, Normal Inspection. absent : Joint Swelling, Pedal Edema - Back Exam Back Exam: NORMAL INSPECTION - Neurological Exam Neurological Exam: Alert, Awake, CN II-XII Intact, Normal Gait, Oriented x3 - Psychiatric Exam Psychiatric exam: Normal Affect, Normal Mood - Skin Skin Exam: Dry, Intact, Normal Color, Warm Assessment and Plan - Assessment and Plan (Free Text) Assessment: COPD EXAC NECK PAIN--CERVICALGIA HOARSENESS-EPIGLOTTIS LESION ASHD HTN HYPOTHYROIDISM Plan: TAPER STEROIDS PHYSIATRY EVAL
[2018-07-14] MEDS ORDERED: methylPREDNISolone 40 MG in Sodium Chloride 0.9% 50 ML IV SCH (10:15)
[2018-07-14] MEDS: MethylPREDNISolone 40 mg Vial IVP SCH (10:27)
[2018-07-14] MEDS: Promethazine 12.5 mg/10 ml Syrup PO PRN (22:23)
[2018-07-15] MEDS: Albuterol-Ipratrop 3 mg / 0.5 (3 ml) UD INH SCH ×5 (04:25→19:03)
[2018-07-15] MEDS: Levothyroxine 112 MCG TAB PO SCH (06:06)
[2018-07-15 06:24] LABS: MEAN CELL VOLUME 88.9 fl (81.0-99.0); MEAN CORPUSCULAR HEMOGLOBIN 29.6 pg (27.0-31.0); MEAN CORPUSCULAR HGB CONC 33.2 g/dL (33.0-37.0); RBC 4.38 Mil/uL (3.80-5.20); RED CELL DISTRIBUTION WIDTH 14.9 % (11.5-14.5); WHITE BLOOD COUNT 9.1 K/uL (4.8-10.8)
[2018-07-15 06:47] LABS: BLOOD UREA NITROGEN 29 mg/dl (7-17); CALCIUM 8.4 mg/dL (8.4-10.2); GFR NON-AFRICAN AMERICAN 54
--- NOTE | 2018-07-15 07:36 | CP.PCM.PN ---
Subjective - Date & Time of Evaluation Date of Evaluation: 07/14/18 Time of Evaluation: 13:00 - Subjective Subjective: see below Objective - Vital Signs/Intake and Output Vital Signs (last 24 hours): Temp Pulse Resp BP Pulse Ox 97.7 F 102 H 20 127/65 100 07/14/18 19:43 07/14/18 19:43 07/14/18 19:43 07/14/18 19:43 07/14/18 19:43 - Medications Medications: Current Medications Acetaminophen (Tylenol 325mg Tab) 650 mg PO Q4 PRN PRN Reason: Pain, moderate (4-7) Albuterol/Ipratropium (Duoneb 3 Mg/0.5 Mg (3 Ml) Ud) 3 ml INH RQ4 [facility] Last Admin: 07/15/18 07:08 Dose: 3 ml Alendronate Sodium (Fosamax) 35 mg PO QWK [facility] Alprazolam (Xanax) 0.25 mg PO DAILY PRN PRN Reason: Anxiety Stop: 07/19/18 14:30 Amlodipine Besylate (Norvasc) 10 mg PO DAILY [facility] Last Admin: 07/14/18 08:28 Dose: 10 mg Atorvastatin Calcium (Lipitor) 10 mg PO HS [facility] Last Admin: 07/14/18 21:19 Dose: 10 mg Cholecalciferol (Vitamin D) 1,000 intlu PO DAILY [facility] Last Admin: 07/14/18 08:28 Dose: 1,000 intlu Enoxaparin Sodium (Lovenox) 40 mg SC DAILY [facility] PRN Reason: Protocol Last Admin: 07/14/18 08:29 Dose: 40 mg Levothyroxine Sodium (Synthroid) 56 mcg PO SUN@0630 [facility] Last Admin: 07/14/18 05:42 Dose: 56 mcg Levothyroxine Sodium (Synthroid) 112 mcg PO MoTuWeThFrSa@0630 [facility] Last Admin: 07/15/18 06:06 Dose: 112 mcg Methylprednisolone (Solu-Medrol) 40 mg IVP DAILY [facility] Last Admin: 07/14/18 10:27 Dose: Not Given Nystatin/Triamcinolone Acetonide (Mycolog Ii) 1 applic TOP TID [facility] Last Admin: 07/14/18 16:53 Dose: Not Given Pantoprazole Sodium (Protonix Ec Tab) 40 mg PO DAILY [facility] Last Admin: 07/14/18 08:28 Dose: 40 mg Promethazine HCl (Phenergan Syrup) 12.5 mg PO Q6 PRN PRN Reason: Cough Last Admin: 07/14/18 22:23 Dose: 12.5 mg - Labs Labs: 07/15/18 05:20 07/15/18 05:20 Assessment and Plan - Assessment and Plan (Free Text) Plan: ENT Consult Note History of Present Illness 77 y/o female known to me admitted with SOB / COPD exacerbation. Mrs. 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 She reports having been well since then, and she felt that the vocal cord issue resolved. She had a CT neck this admission that showed right "pre-epiglottic" space lesion, for which I am asked to see her. She currently denies any throat/neck complaints, such as voice changes, pain or difficulty swallowing. Allergies PCN Exam awake, alert, comfortable no stridor Neck soft, no masses or LAD Oral cavity / oropharynx clear Base of tongue soft Fiberoptic Laryngoscopy: nasopharynx/oropharynx/hypopharynx clear; vallecula clear, no masses seen. pyriform sinuses clear; b/l vocal cord motion symmetric and intact; left TVC with mild inflammation/abnormality, no obstruction CT neck reviewed: shows small hypodensity in the right vallecula Impression Vallecular lesion on imaging, none seen on laryngoscopy, possibly lingual tonsil tissue vs. mucus Left vocal cord abnormality Recommend Mrs. Steve needs to see me in the office following d/c home for further evaluation of the abnormal vocal cord finding (which is likely continuation of the same problem she had in 2016). i explained to her that i need to scope her in the office so as to obtain a better exam, as the scope i have in the office is superior to the travel scope i have used here in the hospital. she understands and agrees. she knows my office addres and number, and she will f/u as i advise.
[2018-07-15] MEDS: MethylPREDNISolone 40 mg Vial IVP SCH (08:12)
[2018-07-15] MEDS: Enoxaparin 40 mg Syringe SC SCH (08:12)
[2018-07-15] MEDS: Cholecalciferol 1,000 INTLU TAB PO SCH (08:12)
[2018-07-15] MEDS: Mycolog II CREAM TOP SCH ×3 (08:12→16:14)
[2018-07-15] MEDS: Pantoprazole 40 mg EC Tab PO SCH (08:13)
--- NOTE | 2018-07-15 08:29 | CP.PCM.PN ---
Subjective - Date & Time of Evaluation Date of Evaluation: 07/15/18 Time of Evaluation: 08:32 - Subjective Subjective: sob improved still coughing l neck pain persists Objective - Vital Signs/Intake and Output Vital Signs (last 24 hours): Temp Pulse Resp BP Pulse Ox 97.9 F 72 22 146/75 98 07/15/18 08:05 07/15/18 08:12 07/15/18 08:05 07/15/18 08:12 07/15/18 08:05 - Medications Medications: Current Medications Acetaminophen (Tylenol 325mg Tab) 650 mg PO Q4 PRN PRN Reason: Pain, moderate (4-7) Albuterol/Ipratropium (Duoneb 3 Mg/0.5 Mg (3 Ml) Ud) 3 ml INH RQ4 [facility] Last Admin: 07/15/18 07:08 Dose: 3 ml Alendronate Sodium (Fosamax) 35 mg PO QWK [facility] Alprazolam (Xanax) 0.25 mg PO DAILY PRN PRN Reason: Anxiety Stop: 07/19/18 14:30 Amlodipine Besylate (Norvasc) 10 mg PO DAILY [facility] Last Admin: 07/15/18 08:12 Dose: 10 mg Atorvastatin Calcium (Lipitor) 10 mg PO HS [facility] Last Admin: 07/14/18 21:19 Dose: 10 mg Cholecalciferol (Vitamin D) 1,000 intlu PO DAILY [facility] Last Admin: 07/15/18 08:12 Dose: 1,000 intlu Enoxaparin Sodium (Lovenox) 40 mg SC DAILY [facility] PRN Reason: Protocol Last Admin: 07/15/18 08:12 Dose: 40 mg Levothyroxine Sodium (Synthroid) 56 mcg PO SUN@0630 [facility] Last Admin: 07/14/18 05:42 Dose: 56 mcg Levothyroxine Sodium (Synthroid) 112 mcg PO MoTuWeThFrSa@0630 [facility] Last Admin: 07/15/18 06:06 Dose: 112 mcg Methylprednisolone (Solu-Medrol) 40 mg IVP DAILY [facility] Last Admin: 07/15/18 08:12 Dose: 40 mg Nystatin/Triamcinolone Acetonide (Mycolog Ii) 1 applic TOP TID [facility] Last Admin: 07/15/18 08:12 Dose: 1 applic Pantoprazole Sodium (Protonix Ec Tab) 40 mg PO DAILY [facility] Last Admin: 07/15/18 08:13 Dose: 40 mg Promethazine HCl (Phenergan Syrup) 12.5 mg PO Q6 PRN PRN Reason: Cough Last Admin: 07/14/18 22:23 Dose: 12.5 mg - Labs Labs: 07/15/18 05:20 07/15/18 05:20 - Constitutional Appears: Chronically Ill - Head Exam Head Exam: ATRAUMATIC, NORMAL INSPECTION, NORMOCEPHALIC - Eye Exam Eye Exam: EOMI, Normal appearance, PERRL Pupil Exam: NORMAL ACCOMODATION, PERRL - ENT Exam ENT Exam: Mucous Membranes Moist, Normal Exam - Neck Exam Neck Exam: Full ROM, Normal Inspection. absent: Lymphadenopathy - Respiratory Exam Respiratory Exam: Decreased Breath Sounds, Rales, NORMAL BREATHING PATTERN - Cardiovascular Exam Cardiovascular Exam: REGULAR RHYTHM, +S1, +S2. absent: Murmur - GI/Abdominal Exam GI & Abdominal Exam: Soft, Normal Bowel Sounds. absent: Tenderness - Rectal Exam Rectal Exam: NORMAL INSPECTION - Extremities Exam Extremities Exam: Full ROM, Normal Capillary Refill, Normal Inspection, Pedal Edema. absent: Joint Swelling - Back Exam Back Exam: NORMAL INSPECTION - Neurological Exam Neurological Exam: Alert, Awake, CN II-XII Intact, Normal Gait, Oriented x3 - Psychiatric Exam Psychiatric exam: Normal Affect, Normal Mood - Skin Skin Exam: Dry, Intact, Normal Color, Warm Assessment and Plan - Assessment and Plan (Free Text) Assessment: acute exac of copd vallecular lesion htn hypothyroidism neck pain Plan: continue current rx social work therapist to see pt regarding subacute care placement
[2018-07-15] MEDS: Lidocaine 5% Patch TD SCH (10:26)
--- NOTE | 2018-07-15 15:43 | CP.PCM.CON ---
History of Present Illness - History of Present Illness History of Present Illness: 77 year old female admitted to TCU with diagnosis of deconditioning, with COPD, CRF, HTN, hypothyroidism covering for Dr Carney Review of Systems - Musculoskeletal Musculoskeletal: Muscle Weakness Past Patient History - Past Medical History & Family History Past Medical History?: Yes - Past Social History Smoking Status: Former Smoker - CARDIAC Hx Congestive Heart Failure: Yes Hx Hypercholesterolemia: Yes Hx Hypertension: Yes - PULMONARY Hx Chronic Obstructive Pulmonary Disease (COPD): Yes - NEUROLOGICAL Hx Neurological Disorder: No - HEENT Hx HEENT Problems: Yes Other/Comment: Uses eyeglasses - RENAL Hx Chronic Kidney Disease: No - ENDOCRINE/METABOLIC Hx Hypothyroidism: Yes - HEMATOLOGICAL/ONCOLOGICAL Hx Human Immunodeficiency Virus (HIV): No - INTEGUMENTARY Hx Dermatological Problems: No - MUSCULOSKELETAL/RHEUMATOLOGICAL Hx Falls: No Hx Fractures: Yes (R ankle fx) - GASTROINTESTINAL Hx Gastrointestinal Disorders: No - GENITOURINARY/GYNECOLOGICAL Hx Genitourinary Disorders: No - PSYCHIATRIC Hx Anxiety: Yes (denies taking xanax home med) Hx Substance Use: No - SURGICAL HISTORY Hx Cholecystectomy: Yes Hx Tonsillectomy: Yes - ANESTHESIA Hx Anesthesia: Yes Hx Anesthesia Reactions: No Hx Malignant Hyperthermia: No Meds Allergies/Adverse Reactions: Allergies Allergy/AdvReac Type Severity Reaction Status Date / Time Penicillins Allergy Mild RASH Verified 07/12/18 14:18 - Medications Medications: Current Medications Acetaminophen (Tylenol 325mg Tab) 650 mg PO Q4 PRN PRN Reason: Pain, moderate (4-7) Albuterol/Ipratropium (Duoneb 3 Mg/0.5 Mg (3 Ml) Ud) 3 ml INH RQ4 [facility] Last Admin: 07/15/18 15:22 Dose: 3 ml Alendronate Sodium (Fosamax) 70 mg PO QWK@0630 [facility] Alprazolam (Xanax) 0.25 mg PO DAILY PRN PRN Reason: Anxiety Stop: 07/19/18 14:30 Amlodipine Besylate (Norvasc) 10 mg PO DAILY [facility] Last Admin: 07/15/18 08:12 Dose: 10 mg Atorvastatin Calcium (Lipitor) 10 mg PO HS [facility] Last Admin: 07/14/18 21:19 Dose: 10 mg Cholecalciferol (Vitamin D) 1,000 intlu PO DAILY [facility] Last Admin: 07/15/18 08:12 Dose: 1,000 intlu Enoxaparin Sodium (Lovenox) 40 mg SC DAILY [facility] PRN Reason: Protocol Last Admin: 07/15/18 08:12 Dose: 40 mg Levothyroxine Sodium (Synthroid) 56 mcg PO SUN@0630 [facility] Last Admin: 07/14/18 05:42 Dose: 56 mcg Levothyroxine Sodium (Synthroid) 112 mcg PO MoTuWeThFrSa@0630 [facility] Last Admin: 07/15/18 06:06 Dose: 112 mcg Lidocaine (Lidoderm) 1 ea TD DAILY [facility] Last Admin: 07/15/18 10:26 Dose: 1 ea Methylprednisolone (Solu-Medrol) 40 mg IVP DAILY [facility] Last Admin: 07/15/18 08:12 Dose: 40 mg Nystatin/Triamcinolone Acetonide (Mycolog Ii) 1 applic TOP TID [facility] Last Admin: 07/15/18 13:25 Dose: Not Given Pantoprazole Sodium (Protonix Ec Tab) 40 mg PO DAILY [facility] Last Admin: 07/15/18 08:13 Dose: 40 mg Promethazine HCl (Phenergan Syrup) 12.5 mg PO Q6 PRN PRN Reason: Cough Last Admin: 07/14/18 22:23 Dose: 12.5 mg Physical Exam - Head Exam Head Exam: ATRAUMATIC, NORMAL INSPECTION, NORMOCEPHALIC - Eye Exam Eye Exam: EOMI, Normal appearance, PERRL Pupil Exam: NORMAL ACCOMODATION - ENT Exam ENT Exam: Mucous Membranes Moist, Normal Exam - Neck Exam Neck exam: Positive for: Normal Inspection - Respiratory Exam Respiratory Exam: Clear to Auscultation Bilateral, NORMAL BREATHING PATTERN - Cardiovascular Exam Cardiovascular Exam: REGULAR RHYTHM - GI/Abdominal Exam GI & Abdominal Exam: Normal Bowel Sounds - Rectal Exam Rectal Exam: NORMAL INSPECTION - Exam External exam: NORMAL EXTERNAL EXAM - Extremities Exam Extremities exam: Positive for: normal inspection - Back Exam Back exam: NORMAL INSPECTION - Neurological Exam Neurological exam: Alert, CN II-XII Intact - Psychiatric Exam Psychiatric exam: Normal Affect, Normal Mood - Skin Skin Exam: Dry, Intact, Normal Color Results - Vital Signs Recent Vital Signs: Last Vital Signs Temp 97.9 F 07/15/18 08:05 Pulse 72 07/15/18 08:12 Resp 22 07/15/18 08:05 BP 146/75 07/15/18 08:12 Pulse Ox 98 07/15/18 08:05 - Labs Result Diagrams: 07/15/18 05:20 07/15/18 05:20 Labs: Laboratory Results - last 24 hr 07/15/18 07/15/18 05:20 05:20 WBC 9.1 RBC 4.38 Hgb 13.0 Hct 39.0 MCV 88.9 MCH 29.6 MCHC 33.2 RDW 14.9 H Plt Count 159 Sodium 140 Potassium 4.0 Chloride 105 Carbon Dioxide 29 Anion Gap 10 BUN 29 H Creatinine 1.0 Est GFR ( Amer) > 60 Est GFR (Non-Af Amer) 54 Random Glucose 107 H Calcium 8.4 Assessment & Plan (1) Acute bronchitis with chronic obstructive pulmonary disease (COPD) Assessment and Plan: plan for physical, occupational therapy for range of motion, strengthening, transfers and gait training covering for Dr Carney Status: Acute (2) Anxiety Status: Acute (3) CHF (congestive heart failure) Status: Acute (4) COPD exacerbation Status: Acute (5) Chest pain Status: Acute (6) Chest pain on breathing Status: Acute (7) Cholecystitis Status: Acute (8) Chr obstructive pulmonary disease w/ acute lower respiratory infxn Status: Acute
--- NOTE | 2018-07-15 15:49 | CP.PCM.PN ---
Subjective - Date & Time of Evaluation Date of Evaluation: 07/15/18 Time of Evaluation: 13:30 - Subjective Subjective: no acute neck or back pain Objective - Vital Signs/Intake and Output Vital Signs (last 24 hours): Temp Pulse Resp BP Pulse Ox 97.9 F 72 22 146/75 98 07/15/18 08:05 07/15/18 08:12 07/15/18 08:05 07/15/18 08:12 07/15/18 08:05 - Medications Medications: Current Medications Acetaminophen (Tylenol 325mg Tab) 650 mg PO Q4 PRN PRN Reason: Pain, moderate (4-7) Albuterol/Ipratropium (Duoneb 3 Mg/0.5 Mg (3 Ml) Ud) 3 ml INH RQ4 [facility] Last Admin: 07/15/18 15:22 Dose: 3 ml Alendronate Sodium (Fosamax) 70 mg PO QWK@0630 [facility] Alprazolam (Xanax) 0.25 mg PO DAILY PRN PRN Reason: Anxiety Stop: 07/19/18 14:30 Amlodipine Besylate (Norvasc) 10 mg PO DAILY [facility] Last Admin: 07/15/18 08:12 Dose: 10 mg Atorvastatin Calcium (Lipitor) 10 mg PO HS [facility] Last Admin: 07/14/18 21:19 Dose: 10 mg Cholecalciferol (Vitamin D) 1,000 intlu PO DAILY [facility] Last Admin: 07/15/18 08:12 Dose: 1,000 intlu Enoxaparin Sodium (Lovenox) 40 mg SC DAILY [facility] PRN Reason: Protocol Last Admin: 07/15/18 08:12 Dose: 40 mg Levothyroxine Sodium (Synthroid) 56 mcg PO SUN@0630 [facility] Last Admin: 07/14/18 05:42 Dose: 56 mcg Levothyroxine Sodium (Synthroid) 112 mcg PO MoTuWeThFrSa@0630 [facility] Last Admin: 07/15/18 06:06 Dose: 112 mcg Lidocaine (Lidoderm) 1 ea TD DAILY [facility] Last Admin: 07/15/18 10:26 Dose: 1 ea Methylprednisolone (Solu-Medrol) 40 mg IVP DAILY [facility] Last Admin: 07/15/18 08:12 Dose: 40 mg Nystatin/Triamcinolone Acetonide (Mycolog Ii) 1 applic TOP TID [facility] Last Admin: 07/15/18 13:25 Dose: Not Given Pantoprazole Sodium (Protonix Ec Tab) 40 mg PO DAILY [facility] Last Admin: 07/15/18 08:13 Dose: 40 mg Promethazine HCl (Phenergan Syrup) 12.5 mg PO Q6 PRN PRN Reason: Cough Last Admin: 07/14/18 22:23 Dose: 12.5 mg - Labs Labs: 07/15/18 05:20 07/15/18 05:20 - Head Exam Head Exam: ATRAUMATIC, NORMAL INSPECTION, NORMOCEPHALIC - Eye Exam Eye Exam: EOMI, Normal appearance, PERRL Pupil Exam: NORMAL ACCOMODATION - ENT Exam ENT Exam: Mucous Membranes Moist, Normal Exam - Neck Exam Neck Exam: Normal Inspection - Respiratory Exam Respiratory Exam: Clear to Ausculation Bilateral, NORMAL BREATHING PATTERN - Cardiovascular Exam Cardiovascular Exam: REGULAR RHYTHM - GI/Abdominal Exam GI & Abdominal Exam: Soft, Normal Bowel Sounds - Rectal Exam Rectal Exam: NORMAL INSPECTION - Exam External exam: NORMAL EXTERNAL EXAM - Extremities Exam Extremities Exam: Full ROM, Normal Capillary Refill, Normal Inspection - Back Exam Back Exam: NORMAL INSPECTION - Neurological Exam Neurological Exam: Alert, Awake Neuro motor strength exam: Left Upper Extremity: 3, Right Upper Extremity: 3, Left Lower Extremity: 3, Right Lower Extremity: 3 - Psychiatric Exam Psychiatric exam: Normal Affect, Normal Mood - Skin Skin Exam: Dry, Intact, Normal Color Assessment and Plan (1) Acute bronchitis with chronic obstructive pulmonary disease (COPD) Assessment & Plan: deconditioning, plan for physical, occupational therapy , pain treatment Dc Planning covering for Dr pineda Status: Acute (2) Anxiety Status: Acute (3) CHF (congestive heart failure) Status: Acute (4) COPD exacerbation Status: Acute (5) Chest pain Status: Acute (6) Chest pain on breathing Status: Acute (7) Cholecystitis Status: Acute (8) Chr obstructive pulmonary disease w/ acute lower respiratory infxn Status: Acute
[2018-07-15] MEDS: Promethazine 12.5 mg/10 ml Syrup PO PRN (17:25)
[2018-07-15 19:28] VITALS: RESP 20
[2018-07-16] MEDS: Albuterol-Ipratrop 3 mg / 0.5 (3 ml) UD INH SCH ×6 (00:01→21:00)
[2018-07-16] MEDS: Levothyroxine 112 MCG TAB PO SCH (05:44)
[2018-07-16] MEDS ORDERED: ALENDRONATE 70 MG TAB PO SCH (06:30)
[2018-07-16] MEDS: Promethazine 12.5 mg/10 ml Syrup PO PRN ×3 (06:47→21:03)
[2018-07-16] MEDS: Lidocaine 5% Patch TD SCH (08:11)
[2018-07-16] MEDS: Mycolog II CREAM TOP SCH ×3 (08:12→18:04)
[2018-07-16] MEDS: Enoxaparin 40 mg Syringe SC SCH (08:12)
[2018-07-16] MEDS: Cholecalciferol 1,000 INTLU TAB PO SCH (08:13)
[2018-07-16] MEDS: Pantoprazole 40 mg EC Tab PO SCH (08:13)
[2018-07-16] MEDS: MethylPREDNISolone 40 mg Vial IVP SCH (08:13)
--- NOTE | 2018-07-16 09:14 | CP.PCM.PN ---
Subjective - Date & Time of Evaluation Date of Evaluation: 07/16/18 Time of Evaluation: 09:14 - Subjective Subjective: CLINICALLY IMPROVING AMBULATING WITH ASSISTANCE NO NEW CLINICAL FINDINGS [id number] WILL CONTINUE CURRENT RX Objective - Vital Signs/Intake and Output Vital Signs (last 24 hours): Temp Pulse Resp BP Pulse Ox 97.7 F 90 20 119/70 98 07/16/18 08:07 07/16/18 08:12 07/16/18 08:07 07/16/18 08:12 07/16/18 08:07 - Medications Medications: Current Medications Acetaminophen (Tylenol 325mg Tab) 650 mg PO Q4 PRN PRN Reason: Pain, moderate (4-7) Albuterol/Ipratropium (Duoneb 3 Mg/0.5 Mg (3 Ml) Ud) 3 ml INH RQ4 [facility] Last Admin: 07/16/18 07:15 Dose: 3 ml Alendronate Sodium (Fosamax) 70 mg PO QWK@0630 [facility] Last Admin: 07/16/18 06:48 Dose: 70 mg Alprazolam (Xanax) 0.25 mg PO DAILY PRN PRN Reason: Anxiety Stop: 07/19/18 14:30 Amlodipine Besylate (Norvasc) 10 mg PO DAILY [facility] Last Admin: 07/16/18 08:12 Dose: 10 mg Atorvastatin Calcium (Lipitor) 10 mg PO HS [facility] Last Admin: 07/15/18 21:07 Dose: 10 mg Cholecalciferol (Vitamin D) 1,000 intlu PO DAILY [facility] Last Admin: 07/16/18 08:13 Dose: 1,000 intlu Levothyroxine Sodium (Synthroid) 56 mcg PO SUN@0630 [facility] Last Admin: 07/14/18 05:42 Dose: 56 mcg Levothyroxine Sodium (Synthroid) 112 mcg PO MoTuWeThFrSa@0630 [facility] Last Admin: 07/16/18 05:44 Dose: 112 mcg Lidocaine (Lidoderm) 1 ea TD DAILY [facility] Last Admin: 07/16/18 08:11 Dose: 1 ea Methylprednisolone (Solu-Medrol) 40 mg IVP DAILY [facility] Last Admin: 07/16/18 08:13 Dose: 40 mg Nystatin/Triamcinolone Acetonide (Mycolog Ii) 1 applic TOP TID [facility] Last Admin: 07/16/18 08:12 Dose: 1 applic Pantoprazole Sodium (Protonix Ec Tab) 40 mg PO DAILY [facility] Last Admin: 07/16/18 08:13 Dose: 40 mg Promethazine HCl (Phenergan Syrup) 12.5 mg PO Q6 PRN PRN Reason: Cough Last Admin: 07/16/18 06:47 Dose: 12.5 mg - Labs Labs: 07/15/18 05:20 07/15/18 05:20
[2018-07-17] MEDS: Albuterol-Ipratrop 3 mg / 0.5 (3 ml) UD INH SCH ×6 (00:07→19:20)
[2018-07-17] MEDS: Levothyroxine 112 MCG TAB PO SCH (06:02)
[2018-07-17] MEDS: Lidocaine 5% Patch TD SCH (08:12)
[2018-07-17] MEDS: Mycolog II CREAM TOP SCH ×3 (08:14→16:53)
[2018-07-17] MEDS: Cholecalciferol 1,000 INTLU TAB PO SCH (08:15)
[2018-07-17] MEDS: Pantoprazole 40 mg EC Tab PO SCH (08:16)
[2018-07-17] MEDS: MethylPREDNISolone 40 mg Vial IVP SCH (08:17)
--- NOTE | 2018-07-17 08:22 | CP.PCM.PN ---
Subjective - Date & Time of Evaluation Date of Evaluation: 07/17/18 Time of Evaluation: 08:22 - Subjective Subjective: STILL COUGHING BUT NO SPUTUM PRODUCTION C/O R UPPER BACK PAIN FOLLOWING EXERCISE SOB IMPROVED Objective - Vital Signs/Intake and Output Vital Signs (last 24 hours): Temp Pulse Resp BP Pulse Ox 97.9 F 98 H 20 107/57 L 95 07/17/18 07:40 07/17/18 08:16 07/17/18 07:40 07/17/18 08:16 07/17/18 07:40 - Medications Medications: Current Medications Acetaminophen (Tylenol 325mg Tab) 650 mg PO Q4 PRN PRN Reason: Pain, moderate (4-7) Albuterol/Ipratropium (Duoneb 3 Mg/0.5 Mg (3 Ml) Ud) 3 ml INH RQ4 [facility] Last Admin: 07/17/18 07:36 Dose: 3 ml Alendronate Sodium (Fosamax) 70 mg PO QWK@0630 [facility] Last Admin: 07/16/18 06:48 Dose: 70 mg Alprazolam (Xanax) 0.25 mg PO DAILY PRN PRN Reason: Anxiety Stop: 07/19/18 14:30 Amlodipine Besylate (Norvasc) 10 mg PO DAILY [facility] Last Admin: 07/17/18 08:16 Dose: 10 mg Atorvastatin Calcium (Lipitor) 10 mg PO HS [facility] Last Admin: 07/16/18 21:03 Dose: 10 mg Cholecalciferol (Vitamin D) 1,000 intlu PO DAILY [facility] Last Admin: 07/17/18 08:15 Dose: 1,000 intlu Levothyroxine Sodium (Synthroid) 56 mcg PO SUN@0630 [facility] Last Admin: 07/14/18 05:42 Dose: 56 mcg Levothyroxine Sodium (Synthroid) 112 mcg PO MoTuWeThFrSa@0630 [facility] Last Admin: 07/17/18 06:02 Dose: 112 mcg Lidocaine (Lidoderm) 1 ea TD DAILY [facility] Last Admin: 07/17/18 08:12 Dose: 1 ea Methylprednisolone (Solu-Medrol) 40 mg IVP DAILY [facility] Last Admin: 07/17/18 08:17 Dose: 40 mg Nystatin/Triamcinolone Acetonide (Mycolog Ii) 1 applic TOP TID [facility] Last Admin: 07/17/18 08:14 Dose: 1 applic Pantoprazole Sodium (Protonix Ec Tab) 40 mg PO DAILY [facility] Last Admin: 07/17/18 08:16 Dose: 40 mg Promethazine HCl (Phenergan Syrup) 12.5 mg PO Q6 PRN PRN Reason: Cough Last Admin: 07/16/18 21:03 Dose: 12.5 mg - Labs Labs: 07/15/18 05:20 07/15/18 05:20 - Constitutional Appears: No Acute Distress - Head Exam Head Exam: ATRAUMATIC, NORMAL INSPECTION, NORMOCEPHALIC - Eye Exam Eye Exam: EOMI, Normal appearance, PERRL Pupil Exam: NORMAL ACCOMODATION, PERRL - ENT Exam ENT Exam: Mucous Membranes Moist, Normal Exam - Neck Exam Neck Exam: Full ROM, Normal Inspection. absent: Lymphadenopathy - Respiratory Exam Respiratory Exam: Prolonged Expiratory Phase, Wheezes, NORMAL BREATHING PATTERN - Cardiovascular Exam Cardiovascular Exam: REGULAR RHYTHM, +S1, +S2. absent: Murmur - GI/Abdominal Exam GI & Abdominal Exam: Soft, Normal Bowel Sounds. absent: Tenderness - Rectal Exam Rectal Exam: NORMAL INSPECTION - Extremities Exam Extremities Exam: Full ROM, Normal Capillary Refill, Normal Inspection, Pedal Edema. absent: Joint Swelling - Back Exam Back Exam: NORMAL INSPECTION - Neurological Exam Neurological Exam: Alert, Awake, CN II-XII Intact, Normal Gait, Oriented x3 - Psychiatric Exam Psychiatric exam: Normal Affect, Normal Mood - Skin Skin Exam: Dry, Intact, Normal Color, Warm Assessment and Plan - Assessment and Plan (Free Text) Assessment: COPD EXAC BACK AND NECK PAINS--MUSCULOSKELETAL ANXIETY HYPOTHYROIDISM HTN HX OF CHRONIC CHF-COMPENSATED DECONDITIONING Plan: CONTINUE CURRENT RX TAPER STEROIDS PT/OT
--- NOTE | 2018-07-17 14:36 | CP.PCM.PN ---
Subjective - Date & Time of Evaluation Date of Evaluation: 07/17/18 Time of Evaluation: 08:00 - Subjective Subjective: no acute complaints, just weakness Objective - Vital Signs/Intake and Output Vital Signs (last 24 hours): Temp Pulse Resp BP Pulse Ox 97.9 F 98 H 20 107/57 L 95 07/17/18 07:40 07/17/18 08:16 07/17/18 07:40 07/17/18 08:16 07/17/18 07:40 - Medications Medications: Current Medications Acetaminophen (Tylenol 325mg Tab) 650 mg PO Q4 PRN PRN Reason: Pain, moderate (4-7) Albuterol/Ipratropium (Duoneb 3 Mg/0.5 Mg (3 Ml) Ud) 3 ml INH RQ4 [facility] Last Admin: 07/17/18 11:22 Dose: Not Given Alendronate Sodium (Fosamax) 70 mg PO QWK@30 [facility] Last Admin: 07/16/18 06:48 Dose: 70 mg Alprazolam (Xanax) 0.25 mg PO DAILY PRN PRN Reason: Anxiety Stop: 07/19/18 14:30 Amlodipine Besylate (Norvasc) 10 mg PO DAILY [facility] Last Admin: 07/17/18 08:16 Dose: 10 mg Atorvastatin Calcium (Lipitor) 10 mg PO HS [facility] Last Admin: 07/16/18 21:03 Dose: 10 mg Cholecalciferol (Vitamin D) 1,000 intlu PO DAILY [facility] Last Admin: 07/17/18 08:15 Dose: 1,000 intlu Clopidogrel Bisulfate (Plavix) 75 mg PO DAILY [facility] Last Admin: 07/17/18 12:48 Dose: 75 mg Levothyroxine Sodium (Synthroid) 56 mcg PO SUN@30 [facility] Last Admin: 07/14/18 05:42 Dose: 56 mcg Levothyroxine Sodium (Synthroid) 112 mcg PO MoTuWeThFrSa@0630 [facility] Last Admin: 07/17/18 06:02 Dose: 112 mcg Lidocaine (Lidoderm) 1 ea TD DAILY [facility] Last Admin: 07/17/18 08:12 Dose: 1 ea Methylprednisolone (Solu-Medrol) 40 mg IVP DAILY [facility] Last Admin: 07/17/18 08:17 Dose: 40 mg Nystatin/Triamcinolone Acetonide (Mycolog Ii) 1 applic TOP TID [facility] Last Admin: 07/17/18 12:51 Dose: Not Given Pantoprazole Sodium (Protonix Ec Tab) 40 mg PO DAILY [facility] Last Admin: 07/17/18 08:16 Dose: 40 mg Promethazine HCl (Phenergan Syrup) 12.5 mg PO Q6 PRN PRN Reason: Cough Last Admin: 07/16/18 21:03 Dose: 12.5 mg - Labs Labs: 07/15/18 05:20 07/15/18 05:20 - Head Exam Head Exam: ATRAUMATIC, NORMAL INSPECTION, NORMOCEPHALIC - Eye Exam Eye Exam: EOMI, Normal appearance, PERRL Pupil Exam: NORMAL ACCOMODATION - ENT Exam ENT Exam: Mucous Membranes Moist, Normal Exam - Neck Exam Neck Exam: Normal Inspection - Respiratory Exam Respiratory Exam: Clear to Ausculation Bilateral, NORMAL BREATHING PATTERN - Cardiovascular Exam Cardiovascular Exam: REGULAR RHYTHM - GI/Abdominal Exam GI & Abdominal Exam: Soft, Normal Bowel Sounds - Exam External exam: NORMAL EXTERNAL EXAM - Extremities Exam Extremities Exam: Full ROM, Normal Capillary Refill - Back Exam Back Exam: NORMAL INSPECTION - Neurological Exam Neurological Exam: Alert, Awake Neuro motor strength exam: Left Upper Extremity: 3, Right Upper Extremity: 3, Left Lower Extremity: 3, Right Lower Extremity: 3 - Psychiatric Exam Psychiatric exam: Normal Affect, Normal Mood - Skin Skin Exam: Dry, Intact Assessment and Plan (1) Acute bronchitis with chronic obstructive pulmonary disease (COPD) Assessment & Plan: plan fo rphysical,occupational therapy covering for Dr pineda who is back tomorrow Status: Acute (2) Anxiety Status: Acute (3) CHF (congestive heart failure) Status: Acute (4) COPD exacerbation Status: Acute (5) Chest pain Status: Acute (6) Chest pain on breathing Status: Acute (7) Cholecystitis Status: Acute (8) Chr obstructive pulmonary disease w/ acute lower respiratory infxn Status: Acute
[2018-07-17] MEDS: Promethazine 12.5 mg/10 ml Syrup PO PRN (18:01)
[2018-07-18] MEDS: Albuterol-Ipratrop 3 mg / 0.5 (3 ml) UD INH SCH ×6 (00:35→19:11)
[2018-07-18] MEDS: Levothyroxine 112 MCG TAB PO SCH (06:49)
[2018-07-18] MEDS: Mycolog II CREAM TOP SCH ×3 (08:18→16:46)
[2018-07-18] MEDS: Lidocaine 5% Patch TD SCH (08:18)
[2018-07-18] MEDS: Cholecalciferol 1,000 INTLU TAB PO SCH (08:18)
[2018-07-18] MEDS: MethylPREDNISolone 40 mg Vial IVP SCH (08:18)
[2018-07-18] MEDS: Pantoprazole 40 mg EC Tab PO SCH (08:18)
[2018-07-18] MEDS: Promethazine 12.5 mg/10 ml Syrup PO PRN ×2 (09:00→18:05)
--- NOTE | 2018-07-18 09:13 | CP.PCM.PN ---
Subjective - Date & Time of Evaluation Date of Evaluation: 07/18/18 Time of Evaluation: 09:14 - Subjective Subjective: NO COMPLAINTS LUNGS-FAIR AERATION Objective - Vital Signs/Intake and Output Vital Signs (last 24 hours): Temp Pulse Resp BP Pulse Ox 97.7 F 91 H 20 110/70 96 07/18/18 07:57 07/18/18 07:57 07/18/18 07:57 07/18/18 07:57 07/18/18 07:57 - Medications Medications: Current Medications Acetaminophen (Tylenol 325mg Tab) 650 mg PO Q4 PRN PRN Reason: Pain, moderate (4-7) Albuterol/Ipratropium (Duoneb 3 Mg/0.5 Mg (3 Ml) Ud) 3 ml INH RQ4 [facility] Last Admin: 07/18/18 07:39 Dose: 3 ml Alendronate Sodium (Fosamax) 70 mg PO QWK@0630 [facility] Last Admin: 07/16/18 06:48 Dose: 70 mg Alprazolam (Xanax) 0.25 mg PO DAILY PRN PRN Reason: Anxiety Stop: 07/19/18 14:30 Amlodipine Besylate (Norvasc) 10 mg PO DAILY [facility] Last Admin: 07/18/18 08:18 Dose: 10 mg Atorvastatin Calcium (Lipitor) 10 mg PO HS [facility] Last Admin: 07/17/18 21:29 Dose: 10 mg Cholecalciferol (Vitamin D) 1,000 intlu PO DAILY [facility] Last Admin: 07/18/18 08:18 Dose: 1,000 intlu Clopidogrel Bisulfate (Plavix) 75 mg PO DAILY [facility] Last Admin: 07/18/18 08:18 Dose: 75 mg Levothyroxine Sodium (Synthroid) 56 mcg PO SUN@0630 [facility] Last Admin: 07/14/18 05:42 Dose: 56 mcg Levothyroxine Sodium (Synthroid) 112 mcg PO MoTuWeThFrSa@0630 [facility] Last Admin: 07/18/18 06:49 Dose: 112 mcg Lidocaine (Lidoderm) 1 ea TD DAILY [facility] Last Admin: 07/18/18 08:18 Dose: 1 ea Methylprednisolone (Solu-Medrol) 40 mg IVP DAILY [facility] Last Admin: 07/18/18 08:18 Dose: 40 mg Nystatin/Triamcinolone Acetonide (Mycolog Ii) 1 applic TOP TID [facility] Last Admin: 07/18/18 08:18 Dose: 1 applic Pantoprazole Sodium (Protonix Ec Tab) 40 mg PO DAILY [facility] Last Admin: 07/18/18 08:18 Dose: 40 mg Promethazine HCl (Phenergan Syrup) 12.5 mg PO Q6 PRN PRN Reason: Cough Last Admin: 07/18/18 09:00 Dose: 12.5 mg - Labs Labs: 07/15/18 05:20 07/15/18 05:20 - Constitutional Appears: No Acute Distress - Head Exam Head Exam: ATRAUMATIC, NORMAL INSPECTION, NORMOCEPHALIC - Eye Exam Eye Exam: EOMI, Normal appearance, PERRL Pupil Exam: NORMAL ACCOMODATION, PERRL - ENT Exam ENT Exam: Mucous Membranes Moist, Normal Exam - Neck Exam Neck Exam: Full ROM, Normal Inspection. absent: Lymphadenopathy - Respiratory Exam Respiratory Exam: Clear to Ausculation Bilateral, NORMAL BREATHING PATTERN - Cardiovascular Exam Cardiovascular Exam: REGULAR RHYTHM, +S1, +S2. absent: Murmur - GI/Abdominal Exam GI & Abdominal Exam: Soft, Normal Bowel Sounds. absent: Tenderness - Rectal Exam Rectal Exam: NORMAL INSPECTION - Extremities Exam Extremities Exam: Full ROM, Normal Capillary Refill, Normal Inspection. absent : Joint Swelling, Pedal Edema - Back Exam Back Exam: NORMAL INSPECTION - Neurological Exam Neurological Exam: Alert, Awake, CN II-XII Intact, Normal Gait, Oriented x3 - Psychiatric Exam Psychiatric exam: Normal Affect, Normal Mood - Skin Skin Exam: Dry, Intact, Normal Color, Warm Assessment and Plan - Assessment and Plan (Free Text) Assessment: COPD--IMPROVED Plan: CONTINUE CURRENT RX FOR POSSIBLE SUBACUTE CARE PLACEMENT
[2018-07-19] MEDS: Albuterol-Ipratrop 3 mg / 0.5 (3 ml) UD INH SCH ×4 (00:16→11:23)
[2018-07-19] MEDS: Levothyroxine 112 MCG TAB PO SCH (05:48)
[2018-07-19] MEDS: Mycolog II CREAM TOP SCH ×2 (08:27→12:22)
[2018-07-19] MEDS: MethylPREDNISolone 40 mg Vial IVP SCH (08:27)
[2018-07-19] MEDS: Pantoprazole 40 mg EC Tab PO SCH (08:28)
[2018-07-19] MEDS: Lidocaine 5% Patch TD SCH (08:28)
[2018-07-19] MEDS: Cholecalciferol 1,000 INTLU TAB PO SCH (08:28)
[2018-07-19 08:29] VITALS: BP 121/59; PULSE 87
[2018-07-19 10:02] VITALS: TEMP 97.5; O2SAT 97
--- NOTE | 2018-07-19 10:44 | CP.PCM.DIS ---
Provider - Provider Date of Admission: 07/12/18 14:21 Attending physician: Conner Jurado MD Time Spent in preparation of Discharge (in minutes): 30 Diagnosis - Discharge Diagnosis (1) Acute bronchitis with chronic obstructive pulmonary disease (COPD) Status: Acute (2) Anxiety Status: Acute (3) CHF (congestive heart failure) Status: Acute (4) COPD exacerbation Status: Acute (5) Hypertension Status: Acute (6) Hypothyroid Status: Acute (7) Physical deconditioning Status: Acute (8) Swelling, mass, or lump in head and neck Status: Acute Hospital Course - Lab Results Lab Results: Most Recent Lab Values WBC 9.1 K/uL (4.8-10.8) 07/15/18 05:20 RBC 4.38 Mil/uL (3.80-5.20) 07/15/18 05:20 Hgb 13.0 g/dL (12.0-16.0) 07/15/18 05:20 Hct 39.0 % (34.0-47.0) 07/15/18 05:20 MCV 88.9 fl (81.0-99.0) 07/15/18 05:20 MCH 29.6 pg (27.0-31.0) 07/15/18 05:20 MCHC 33.2 g/dL (33.0-37.0) 07/15/18 05:20 RDW 14.9 % (11.5-14.5) H 07/15/18 05:20 Plt Count 159 K/uL (130-400) 07/15/18 05:20 Sodium 140 mmol/l (132-148) 07/15/18 05:20 Potassium 4.0 MMOL/L (3.6-5.0) 07/15/18 05:20 Chloride 105 mmol/L (98-107) 07/15/18 05:20 Carbon Dioxide 29 mmol/L (22-30) 07/15/18 05:20 Anion Gap 10 (10-20) 07/15/18 05:20 BUN 29 mg/dl (7-17) H 07/15/18 05:20 Creatinine 1.0 mg/dl (0.7-1.2) 07/15/18 05:20 Est GFR ( Amer) > 60 07/15/18 05:20 Est GFR (Non-Af Amer) 54 07/15/18 05:20 Random Glucose 107 mg/dL (65-105) H 07/15/18 05:20 Calcium 8.4 mg/dL (8.4-10.2) 07/15/18 05:20 - Hospital Course Hospital Course: clinically improved with therapy Discharge Exam - Head Exam Head Exam: ATRAUMATIC, NORMAL INSPECTION, NORMOCEPHALIC - Eye Exam Eye Exam: EOMI, Normal appearance, PERRL Pupil Exam: NORMAL ACCOMODATION, PERRL - Respiratory Exam Respiratory Exam: Prolonged Expiratory Phase, Wheezes - GI/Abdominal Exam GI & Abdominal Exam: Normal Bowel Sounds - Rectal Exam Rectal Exam: NORMAL INSPECTION - Neurological Exam Neurological exam: Abnormal Gait, Alert, CN II-XII Intact, Oriented x3, Reflexes Normal - Psychiatric Exam Psychiatric exam: Normal Affect, Normal Mood - Skin Skin Exam: Dry, Intact, Normal Color, Warm Discharge Plan - Follow Up Plan Condition: GOOD Disposition: HOME/ ROUTINE Patient education suggested?: Yes Additional Instructions: discharge to subacute care
[2018-07-19] MEDS: Promethazine 12.5 mg/10 ml Syrup PO PRN (12:29)
== END 2018-07-19 13:30 | DRG 192 ==
LOC: H.TCU 14:21
PROVIDERS: ADMIT Internal Medicine Pulmonary Disease; ATTEND Internal Medicine Pulmonary Disease
PROC: F07Z9FZ Gait Training/Functional Ambulation Treatment using Assistive, Adaptive, Supportive or Protective Equipment (ICD-10-PCS; principal; 2018-07-12)
PROC: 3E0F73Z Introduction of Anti-inflammatory into Respiratory Tract, Via Natural or Artificial Opening (ICD-10-PCS; 2018-07-12)
PROC: F08Z4FZ Home Management Treatment using Assistive, Adaptive, Supportive or Protective Equipment (ICD-10-PCS; 2018-07-12)
PROC: F07M6FZ Therapeutic Exercise Treatment of Musculoskeletal System - Whole Body using Assistive, Adaptive, Supportive or Protective Equipment (ICD-10-PCS; 2018-07-13)
PROC: 0CJS8ZZ Inspection of Larynx, Via Natural or Artificial Opening Endoscopic (ICD-10-PCS; 2018-07-15)
DX: J44.1 Chronic obstructive pulmonary disease with (acute) exacerbation (principal); J20.9 Acute bronchitis, unspecified; J44.0 Chronic obstructive pulmonary disease with (acute) lower respiratory infection; J38.3 Other diseases of vocal cords; I25.10 Atherosclerotic heart disease of native coronary artery without angina pectoris; I11.0 Hypertensive heart disease with heart failure; I50.9 Heart failure, unspecified; E03.9 Hypothyroidism, unspecified; M54.2 Cervicalgia; E78.00 Pure hypercholesterolemia, unspecified; F41.9 Anxiety disorder, unspecified; Z87.891 Personal history of nicotine dependence; Z88.0 Allergy status to penicillin